=== PATIENT | female | born 1950 | race American Indian/Alaskan Native ===

== ENCOUNTER 2019-04-29 13:55 | Inpatient (IN) | payer OTHER ==
--- NOTE | 2019-04-29 14:00 | Emergency Department Report ---
Blank Doc - Documentation Documentation: this is a 68-year-old female that presents with AMS with some facial drooping. This initial assessment/diagnostic orders/clinical plan/treatment(s) is/are subject to change based on patient's health status, clinical progression and re- assessment by fellow clinical providers in the ED. Further treatment and workup at subsequent clinical providers discretion. Patient/guardians urged not to elope from the ED as their condition may be serious if not clinically assessed and managed. Initial orders include: 1- Patient sent to [facility] for further evaluation and treatment 2- code stroke imitated
--- NOTE | 2019-04-29 14:22 | Emergency Department Report ---
ED Neuro Deficit HPI - General Chief Complaint: Neuro Symptoms/Deficit Stated Complaint: POSS STROKE/PAIN Time Seen by Provider: 04/29/19 13:59 Source: family Mode of arrival: Ambulatory Limitations: No Limitations - History of Present Illness Initial Comments: [facility] Tele[facility]rology [facility] Date of Service: 04/29/2019 14:03:55 Impression: Left Hemispheric MCA Distribution Mechanism of Stroke: Possible Thromboembolic Possible Cardioembolic Small Vessel Disease Metrics: Last Known Well: 04/27/2019 00:00:00 [employer] Notification Time: 04/29/2019 14:03:55 Arrival Time: 04/29/2019 13:55:00 Stamp Time: 04/29/2019 14:03:55 Time First Login Attempt: 04/29/2019 14:07:40 Video Start Time: 04/29/2019 14:07:40 Symptoms: altered mental status and facial droop NIHSS Start Assessment Time: 04/29/2019 14:13:25 Patient is not a candidate for tPA. Patient was not deemed candidate for tPA thrombolytics because of Last Well Known above 4.5 hours. Video End Time: 04/29/2019 14:19:54 CT head was not reviewed. Advanced imaging was not obtained as the presentation was not suggestive of Large Vessel Occlusive Disease. ER physician notified of the decision on thrombolytics management. Comments: Hypodensity in the left deep white matter concerning for subacute stroke. Our recommendations are outlined below. Recommendations: Initiate Aspirin 81 MG Daily Recommended Scan: MRI Head Without Contrast MRA Head and Neck Without Contrast When Available - Stroke Protocol Echocardiogram - Transthoracic Echocardiogram Lipid Panel to Be Obtained, if Not Done in the Last Three Months Therapies: Physical Therapy, Occupational Therapy, Speech Therapy Assessment When Applicable Dysphaghia Screen: Swallow Evaluation, Bedside DVT prophylaxis: SCDs, Pneumatic Compression Disposition: Follow up with Teleneurology Follow up Sign Out: Discussed with Emergency Department Provider History of Present Illness: Patient is a 68 years old Female. Patient was brought by private transportation with symptoms of altered mental status and facial droop 68 yo F with history of htn and hl who is presenting iwth confusion. Patient's family's states that 2 days ago she started having trouble getting her words out. She now seems confused. Deny any recent illnesses. CT head was not reviewed. Examination: 1A: Level of Consciousness - Alert; keenly responsive + 0 1B: Ask Month and Age - Aphasic + 2 1C: Blink Eyes & Squeeze Hands - Performs Both Tasks + 0 2: Test Horizontal Extraocular Movements - Normal + 0 3: Test Visual Dowell - No Visual Loss + 0 4: Test Facial Palsy (Use Grimace if Obtunded) - Minor paralysis (flat nasolabial fold, smile asymetry) + 1 5A: Test Left Arm Motor Drift - No Drift for 10 Seconds + 0 5B: Test Right Arm Motor Drift - No Drift for 10 Seconds + 0 6A: Test Left Leg Motor Drift - No Drift for 5 Seconds + 0 6B: Test Right Leg Motor Drift - No Drift for 5 Seconds + 0 7: Test Limb Ataxia (FNF/Heel-Martinez) - No Ataxia + 0 8: Test Sensation - Normal; No sensory loss + 0 9: Test Language/Aphasia - Mild-Moderate Aphasia: Some Obvious Changes, Without Significant Limitation + 1 10: Test Dysarthria - Normal + 0 11: Test Extinction/Inattention - No abnormality + 0 NIHSS Score: 4 Patient was informed the Neurology Consult would happen via TeleHealth consult by way of interactive audio and video telecommunications and consented to receiving care in this manner. Due to the immediate potential for life-threatening deterioration due to underlying acute neurologic illness, I spent 35 minutes providing critical care. This time includes time for face to face visit via telemedicine, review of medical records, imaging studies and discussion of findings with providers, the patient and/or family. Dr Tootie Torres [facility] - Related Data Allergies/Adverse Reactions: Allergies Allergy/AdvReac Type Severity Reaction Status Date / Time No Known Allergies Allergy Unverified 04/29/19 13:57 ED Review of Systems ROS: Stated complaint: POSS STROKE/PAIN Other details as noted in HPI ED Past Medical Hx - Past Medical History Previous Medical History?: Yes Hx Heart Attack/AMI: Yes Additional medical history: GALL STONES - Social History Smoking Status: Never Smoker Substance Use Type: None ED Neuro Physical Exam - General Limitations: No Limitations Suspected Stroke: Yes - NIHSS Assessment Interval: Baseline 1a. Level of Consciousness: alert/keenly responsive 1b. LOC Questions: answers no questions correctly 1c. LOC Commands: performs tasks correctly 2. Best Gaze: normal 3. Visual: no visual loss 4. Facial Palsy: minor paralysis 5b. Motor Arm Right: no drift 5a. Motor Arm Left: no drift 6a. Motor Leg Left: no drift 6b. Motor Leg Right: no drift 7. Limb Ataxia: absent 8. Sensory: normal 9. Best Language: mild/moderate aphasia 10. Dysarthria: normal 11. Extinction/Inattention: no abnormality Total Score: 4 Stroke Severity: Minor Stroke ED Course Vital Signs 04/29/19 14:03 Temperature 98.4 F Pulse Rate 55 L Respiratory 18 Rate Blood Pressure 138/90 O2 Sat by Pulse 98 Oximetry - Lab Data Lab Results 04/29/19 Range/Units 14:08 POC Glucose 200 H (70-105) Critical care attestation.: If time is entered above; I have spent that time in minutes in the direct care of this critically ill patient, excluding procedure time. ED Disposition Clinical Impression: Stroke Disposition: -09 OP ADMIT IP TO THIS HOSP Is pt being admited?: Yes Condition: Stable
[2019-04-29 14:37] LABS: Creatine Kinase MB 2.1 ng/mL (0.0-4.0)
[2019-04-29 14:38] LABS: Alanine Aminotransferase 19 units/L (7-56); Albumin 4.1 g/dL (3.9-5); BUN/Creatinine Ratio 10; Blood Urea Nitrogen 12 mg/dL (7-17); Calcium 9.7 mg/dL (8.4-10.2); Hemolysis Index 11
--- NOTE | 2019-04-29 14:38 | Cat Scan Report ---
CT HEAD WITHOUT CONTRAST INDICATION / CLINICAL INFORMATION: Code stroke, aphasia, right-sided weakness. TECHNIQUE: Axial imaging performed from the skull apex through the skull base without the use of cont rast. Sagittal and coronal reformatted images. All CT scans at this location are performed using CT dose reduction for ALARA by means of automated exposure control. COMPARISON: None available. FINDINGS: CEREBRAL PARENCHYMA: Hyperdense left MCA is identified on image 13, series 2 consistent with thrombos is. There is a relatively small area of diminished attenuation in the posterior left basal ganglia me asuring up to 1 cm in greatest dimension. This may represent early ischemic changes. The remainder of the brain parenchyma demonstrates normal attenuation. The jaramillo-white interface is well-defined. No l arge chronic infarct. HEMORRHAGE: None. EXTRA-AXIAL SPACES: Normal in size and morphology for the patient's age. VENTRICULAR SYSTEM: Normal in size and morphology for the patient's age. MIDLINE SHIFT OR HERNIATION: None. CEREBELLUM / BRAINSTEM: No significant abnormality. CALVARIUM: No significant abnormality. ORBITS: Normal as visualized. PARANASAL SINUSES / MASTOID AIR CELLS: Normal as visualized. SOFT TISSUES of HEAD: No significant abnormality. ADDITIONAL FINDINGS: None. IMPRESSION: Hyperdense left MCA consistent with thrombosis as described. Probable early ischemic change in the le ft posterior basal ganglia region versus chronic lacunar infarct. There is no evidence for hemorrhage or mass effect. These findings were discussed with Dr. Camacho in the emergency department at 1429 hours EST. Signer Name: Chris Kern Jr, MD Signed: 04/29/2019 2:33 PM Workstation Name: [id number]
[2019-04-29 14:46] LABS: INR 1.26 (0.87-1.13)
[2019-04-29 14:47] LABS: Partial Thromboplastin Time 28.1 Sec. (24.2-36.6); Thrombin Time 16.5 Sec. (15.1-19.6)
[2019-04-29 15:04] LABS: Hemoglobin 14.1 gm/dl (10.1-14.3); Mean Corpuscular HGB Conc 31 % (30-34); Mean Corpuscular Volume 85 fl (79-97)
[2019-04-29 15:05] LABS: Basophils % (Auto) 0.5 % (0.0-1.8); Eosinophils # (Auto) 0.1 K/mm3 (0.0-0.4); Eosinophils % (Auto) 0.8 % (0.0-4.3); Lymphocytes # (Auto) 3.3 K/mm3 (1.2-5.4); Lymphocytes % (Auto) 43.4 % (13.4-35.0); Monocytes # (Auto) 0.8 K/mm3 (0.0-0.8); Monocytes % (Auto) 10.5 % (0.0-7.3); Platelet Count 267 K/mm3 (140-440); Red Cell Distribution Width 14.4 % (13.2-15.2)
--- NOTE | 2019-04-29 15:07 | Emergency Department Report ---
ED Neuro Deficit HPI - General Chief Complaint: Neuro Symptoms/Deficit Stated Complaint: POSS STROKE/PAIN Time Seen by Provider: 04/29/19 13:59 Source: family Mode of arrival: Ambulatory Limitations: No Limitations - History of Present Illness Initial Comments: 68-year-old female presents to ED for possible stroke. Family states over the last 2 days patient has been having trouble getting her words and seems confused. Family brought patient to ER because symptoms are not improving. -: days(s) (2) Location: speech Presenting Symptoms: Present: Unable to Speak Clearly History of same: No Place: home Severity: severe Improves With: none Worsens With: none Treatments Prior to Arrival: none - Related Data Home Medications: Home Medications Medication Instructions Recorded Confirmed Last Taken No Known Home Medications [No 04/29/19 04/29/19 Unknown Reported Home Medications] Allergies/Adverse Reactions: Allergies Allergy/AdvReac Type Severity Reaction Status Date / Time No Known Allergies Allergy Unverified 04/29/19 13:57 ED Review of Systems ROS: Stated complaint: POSS STROKE/PAIN Other details as noted in HPI Comment: All other systems reviewed and negative Neurological: confusion ED Past Medical Hx - Past Medical History Previous Medical History?: Yes Hx Heart Attack/AMI: Yes Additional medical history: GALL STONES - Social History Smoking Status: Never Smoker Substance Use Type: None - Medications Home Medications: Home Medications Medication Instructions Recorded Confirmed Last Taken Type No Known Home Medications [No 04/29/19 04/29/19 Unknown History Reported Home Medications] ED Neuro Physical Exam - General Limitations: No Limitations General appearance: alert, in no apparent distress Suspected Stroke: Yes - Head Head exam: Present: atraumatic, normocephalic - Eye Eye exam: Present: normal appearance, PERRL, EOMI - ENT ENT exam: Present: mucous membranes moist - Neck Neck exam: Present: normal inspection - Respiratory Respiratory exam: Present: normal lung sounds bilaterally. Absent: respiratory distress - Cardiovascular Cardiovascular Exam: Present: normal rhythm, bradycardia - GI/Abdominal GI/Abdominal exam: Present: soft. Absent: distended, tenderness - Extremities Exam Extremities exam: Present: normal inspection - NIHSS Assessment Interval: Baseline 1a. Level of Consciousness: alert/keenly responsive 1b. LOC Questions: aphasic 1c. LOC Commands: performs tasks correctly 2. Best Gaze: normal 3. Visual: no visual loss 4. Facial Palsy: minor paralysis 5b. Motor Arm Right: no drift 5a. Motor Arm Left: no drift 6a. Motor Leg Left: no drift 6b. Motor Leg Right: no drift 7. Limb Ataxia: absent 8. Sensory: normal 9. Best Language: mild/moderate aphasia 10. Dysarthria: normal 11. Extinction/Inattention: no abnormality Total Score: 4 Stroke Severity: Minor Stroke - Psychiatric Psychiatric exam: Present: normal affect, normal mood - Skin Skin exam: Present: warm, dry, intact, normal color. Absent: rash ED Course Vital Signs 04/29/19 04/29/19 04/29/19 14:03 14:46 16:01 Temperature 98.4 F Pulse Rate 55 L 76 76 Respiratory 18 25 H 28 H Rate Blood Pressure 138/90 137/84 120/73 O2 Sat by Pulse 98 99 100 Oximetry 04/29/19 17:01 Temperature Pulse Rate 64 Respiratory 19 Rate Blood Pressure 146/75 O2 Sat by Pulse 100 Oximetry - Reevaluation(s) Reevaluation #1: 04/29/19 15:21 EKG shows Afib. Granddaughter is unsure if pt has been previously diagnosed with Afib. States is not currently taking any medications b/c she is noncompliant. - Lab Data Result diagrams: 04/29/19 14:11 04/29/19 14:11 Lab Results 04/29/19 04/29/19 04/29/19 Range/Units 14:08 14:11 14:11 WBC 7.6 (4.5-11.0) K/mm3 RBC 5.30 H (3.65-5.03) M/mm3 Hgb 14.1 (10.1-14.3) gm/dl Hct 45.0 H (30.3-42.9) % MCV 85 (79-97) fl MCH 27 L (28-32) pg MCHC 31 (30-34) % RDW 14.4 (13.2-15.2) % Plt Count 267 (140-440) K/mm3 Lymph % (Auto) 43.4 H (13.4-35.0) % Starr % (Auto) 10.5 H (0.0-7.3) % Eos % (Auto) 0.8 (0.0-4.3) % Baso % (Auto) 0.5 (0.0-1.8) % Lymph # 3.3 (1.2-5.4) K/mm3 Starr # 0.8 (0.0-0.8) K/mm3 Eos # 0.1 (0.0-0.4) K/mm3 Baso # 0.0 (0.0-0.1) K/mm3 Seg Neutrophils % 44.8 (40.0-70.0) % Seg Neutrophils # 3.4 (1.8-7.7) K/mm3 PT 15.5 H (12.2-14.9) Sec. INR 1.26 H (0.87-1.13) APTT 28.1 (24.2-36.6) Sec. Thrombin Time 16.5 (15.1-19.6) Sec. Sodium (137-145) mmol/L Potassium (3.6-5.0) mmol/L Chloride (98-107) mmol/L Carbon Dioxide (22-30) mmol/L Anion Gap mmol/L BUN (7-17) mg/dL Creatinine (0.7-1.2) mg/dL Estimated GFR ml/min BUN/Creatinine Ratio % Glucose (65-100) mg/dL POC Glucose 200 H (70-105) Calcium (8.4-10.2) mg/dL Total Bilirubin (0.1-1.2) mg/dL AST (5-40) units/L ALT (7-56) units/L Alkaline Phosphatase (35-129) units/L Total Creatine Kinase (30-135) units/L CK-MB (CK-2) (0.0-4.0) ng/mL CK-MB (CK-2) Rel Index (0-4) Troponin T (0.00-0.029) ng/mL Total Protein (6.3-8.2) g/dL Albumin (3.9-5) g/dL Albumin/Globulin Ratio % 04/29/ Range/Units 14:11 WBC (4.5-11.0) K/mm3 RBC (3.65-5.03) M/mm3 Hgb (10.1-14.3) gm/dl Hct (30.3-42.9) % MCV (79-97) fl MCH (28-32) pg MCHC (30-34) % RDW (13.2-15.2) % Plt Count (140-440) K/mm3 Lymph % (Auto) (13.4-35.0) % Starr % (Auto) (0.0-7.3) % Eos % (Auto) (0.0-4.3) % Baso % (Auto) (0.0-1.8) % Lymph # (1.2-5.4) K/mm3 Starr # (0.0-0.8) K/mm3 Eos # (0.0-0.4) K/mm3 Baso # (0.0-0.1) K/mm3 Seg Neutrophils % (40.0-70.0) % Seg Neutrophils # (1.8-7.7) K/mm3 PT (12.2-14.9) Sec. INR (0.87-1.13) APTT (24.2-36.6) Sec. Thrombin Time (15.1-19.6) Sec. Sodium 135 L (137-145) mmol/L Potassium 3.6 (3.6-5.0) mmol/L Chloride 98.5 (98-107) mmol/L Carbon Dioxide 22 (22-30) mmol/L Anion Gap 18 mmol/L BUN 12 (7-17) mg/dL Creatinine 1.2 (0.7-1.2) mg/dL Estimated GFR 45 ml/min BUN/Creatinine Ratio 10 % Glucose 203 H (65-100) mg/dL POC Glucose (70-105) Calcium 9.7 (8.4-10.2) mg/dL Total Bilirubin 0.40 (0.1-1.2) mg/dL AST 19 (5-40) units/L ALT 19 (7-56) units/L Alkaline Phosphatase 66 (35-129) units/L Total Creatine Kinase 84 (30-135) units/L CK-MB (CK-2) 2.1 (0.0-4.0) ng/mL CK-MB (CK-2) Rel Index 2.5 (0-4) Troponin T < 0.010 (0.00-0.029) ng/mL Total Protein 8.4 H (6.3-8.2) g/dL Albumin 4.1 (3.9-5) g/dL Albumin/Globulin Ratio 1.0 % - EKG Data -: EKG Interpreted by Me EKG shows normal: QRS complexes, ST-T waves Rate: normal Interpretation: other (atrial fibrillation) - Radiology Data Radiology results: report reviewed, image reviewed - Medical Decision Making 68-year-old female with some aphasia on exam. Last known normal was [address] shows ischemic changes, and hyperdense left MCA. Patient seen and evaluated by a neurologist. Patient is not eligible for TPA or interventional procedure because she is outside of the treatment window. Patient states that he admitted to the hospitalist, Dr Howell, for further workup. - Differential Diagnosis CVA - Thrombolytic Inclusion/Exclusion Thrombolytic Exclusion Criteria: Symptom Onset > 3 Hours Critical care attestation.: If time is entered above; I have spent that time in minutes in the direct care of this critically ill patient, excluding procedure time. ED Disposition Clinical Impression: CVA (cerebral vascular accident) Qualifiers: Precerebral and cerebral artery: middle cerebral artery Laterality of affected vessel: left Disposition: DC-09 OP ADMIT IP TO THIS HOSP Is pt being admited?: Yes Condition: Stable Time of Disposition: 15:23
[2019-04-29] MEDS ORDERED: PROVENTIL IH PRN (15:47)
[2019-04-29] MEDS ORDERED: ZOFRAN IV PRN (15:47)
[2019-04-29] MEDS ORDERED: REGLAN PO PRN (15:47)
[2019-04-29] MEDS ORDERED: PHENERGAN PR PRN (15:47)
[2019-04-29] MEDS ORDERED: TYLENOL PO PRN (15:47)
[2019-04-29] MEDS ORDERED: DULCOLAX PR PRN (15:47)
[2019-04-29] MEDS ORDERED: MILK OF MAGNESIA PO PRN (15:47)
--- NOTE | 2019-04-29 15:47 | History and Physical Report ---
History of Present Illness Chief complaint: She is confused, and cant talk History of present illness: 68 YO Female with VA presents to ED for evaluation. Pt has confusion and dysarthria and is unable to provide detailed history. Pt history taken from family members who are at bedside during exam and interview. per family, the patient has experienced confusion and slurred speech, and difficulty swallowing over the past 2 days with persistent symptoms over the same time frame. Pt transported to [facility] via private vehicle. Pt found to have neurologic deficit consistent with CVA as well as Encephalopathy, and Hyponatremia. A code stroke was called and teleneurology consulted. Pt is outside therapeutic window for TPA. Pt initiated on CVA protocol and admitted to telemetry. Neurology consulted in ED. No reports of fever, chills, CP, Palpitations, NVD, Trauma, seizure, vertigo, vision loss, productive cough, or recent ill contacts. No further history obtainable. No prior admission for review. No medication listed for reconciliation at time of admission. Past History Past Medical History: acute VA Past Surgical History: No surgical history, Other (reviewed) Social history: single, lives with family. denies: smoking, alcohol abuse, prescription drug abuse Family history: CAD Medications and Allergies Allergies Allergy/AdvReac Type Severity Reaction Status Date / Time No Known Allergies Allergy Unverified 04/29/19 13:57 Home Medications Medication Instructions Recorded Confirmed Last Taken Type No Known Home Medications [No 04/29/19 04/29/19 Unknown History Reported Home Medications] Review of Systems ROS unobtainable: due to mental status Exam - Constitutional Vitals: Temp Pulse Resp BP Pulse Ox 98.4 F 55 L 18 138/90 98 04/29/19 14:03 04/29/19 14:03 04/29/19 14:03 04/29/19 14:03 04/29/19 14:03 General appearance: Present: mild distress - EENT Eyes: Present: PERRL ENT: clear oral mucosa, hearing decreased - Neck Neck: Present: supple, normal ROM - Respiratory Respiratory effort: normal Respiratory: bilateral: CTA - Cardiovascular Heart Sounds: Present: S1 & S2. Absent: rub, click - Extremities Extremities: pulses symmetrical, No edema Peripheral Pulses: within normal limits - Abdominal General gastrointestinal: Present: soft, non-tender, non-distended, normal bowel sounds Female genitourinary: Present: normal - Integumentary Integumentary: Present: clear, warm, dry - Musculoskeletal Musculoskeletal: generalized weakness - Psychiatric Psychiatric: no appropriate mood/affect, no intact judgment & insight, no memory intact - Neurologic Neurologic: no CNII-XII intact, focal deficits, moves all extremities, no gait normal Results - Labs CBC & Chem 7: 04/29/19 14:11 04/29/19 14:11 Labs: Abnormal lab results 04/29/19 04/29/19 04/29/19 Range/Units 14:08 14:11 14:11 RBC 5.30 H (3.65-5.03) M/mm3 Hct 45.0 H (30.3-42.9) % MCH 27 L (28-32) pg Lymph % (Auto) 43.4 H (13.4-35.0) % Buchanan % (Auto) 10.5 H (0.0-7.3) % PT 15.5 H (12.2-14.9) Sec. INR 1.26 H (0.87-1.13) Sodium (137-145) mmol/L Glucose (65-100) mg/dL POC Glucose 200 H (70-105) Total Protein (6.3-8.2) g/dL 04/29/19 Range/Units 14:11 RBC (3.65-5.03) M/mm3 Hct (30.3-42.9) % MCH (28-32) pg Lymph % (Auto) (13.4-35.0) % Buchanan % (Auto) (0.0-7.3) % PT (12.2-14.9) Sec. INR (0.87-1.13) Sodium 135 L (137-145) mmol/L Glucose 203 H (65-100) mg/dL POC Glucose (70-105) Total Protein 8.4 H (6.3-8.2) g/dL Assessment and Plan - Patient Problems (1) CVA (cerebral vascular accident) Current Visit: Yes Status: Acute Qualifiers: Precerebral and cerebral artery: middle cerebral artery Laterality of affected vessel: left Plan to address problem: Stroke protocol: Admit to telemetry, CT head, MRI Brain, MRA Brain, Echo, Carotic doppler, Neuro check, seizure precautions, lipid panel, statin therapy, antiplatelet therapy, Neurology consulted. (2) Encephalopathy Current Visit: Yes Status: Acute Plan to address problem: CT Head, neuro checks, aspiration precautions, thyroid panel, supportive care (3) Hyponatremia syndrome Current Visit: Yes Status: Acute Plan to address problem: IVF resuscitation therapy, repeat bmp, (4) Diabetes Current Visit: Yes Status: Acute Plan to address problem: ADA diet, insulin, accu chec, Hgb A1c (5) DVT prophylaxis Current Visit: Yes Status: Acute Plan to address problem: SCD to BLE while in bed, prophylactic lovenox
[2019-04-29 16:59] LABS: Bacteria,Urine 4+ /HPF (Negative); Bilirubin,Urine NEG (Negative); Blood,Urine SM (Negative); Color,Urine Yellow (Yellow); Mucus,Urine FEW /HPF; Protein,Urine <15 mg/dL mg/dL (Negative); Urobilinogen,Urine < 2.0 mg/dL (<2.0)
[2019-04-29] MEDS ORDERED: D50W (25GM) Syringe IV PRN (17:08)
[2019-04-29 17:33] LABS: Amphetamine Screen,Urine PRESUMPTIVE NEGATIVE; Benzodiazepines Screen,Urine PRESUMPTIVE NEGATIVE; Cannabinoid Screen,Urine PRESUMPTIVE NEGATIVE; Cocaine Screen,Urine PRESUMPTIVE NEGATIVE; Methadone Screen,Urine PRESUMPTIVE NEGATIVE; Opiate Screen,Urine PRESUMPTIVE NEGATIVE
[2019-04-29 20:18] LABS: Free T4 (Free Thyroxine) 1.28 ng/dL (0.76-1.46)
[2019-04-29] MEDS: SODIUM CHLORIDE FLUSH SYRINGE 10 ML IV PRN (21:20)
[2019-04-29] MEDS: HumaLOG SUB-Q SCH (21:32)
--- NOTE | 2019-04-30 09:51 | Magnetic Resonance Report ---
MRI BRAIN WITHOUT CONTRAST INDICATION / CLINICAL INFORMATION: stroke. TECHNIQUE: Multiplanar, multisequence MR images of the brain were obtained. COMPARISON: None available. FINDINGS: BRAIN / INTRACRANIAL CONTENTS: There are scattered areas of acute infarction within the left MCA dist ribution including a 2 cm focus along the posterior left gangliocapsular region. Foci are also seen a long the left insula as well as the frontal and parietal subcortical regions. There is otherwise mild cerebral white matter disease on the FLAIR sequences most consistent with chronic microvascular ryan opathy. The ventricular system is appropriate in size and configuration. CRANIOCERVICAL JUNCTION: No significant abnormality. VASCULAR FLOW-VOIDS: On the earlier CTA, there was note of increased attenuation within and MCA branc h at the trifurcation which corresponds with heterogeneous signal on the current T2-weighted imaging. The vertebral basilar system and distal ICAs demonstrate appropriate signal voids. ORBITS: No significant abnormality of visualized orbits. SINUSES / MASTOIDS: There is a defect along the medial right orbital wall which may be developmental or related to previous trauma. Otherwise, the paranasal sinuses are clear. ADDITIONAL FINDINGS: None. IMPRESSION: 1. There are patchy areas of acute infarction within the left MCA distribution as detailed above. Signer Name: Kam Black MD Signed: 04/30/2019 9:46 AM Workstation Name: [id number]
[2019-04-30] MEDS ORDERED: LOVENOX SUB-Q SCH (10:00)
--- NOTE | 2019-04-30 10:35 | Magnetic Resonance Report ---
MRA head without contrast Clinical history: Slurred speech, left-sided weakness, cerebrovascular accident. FINDINGS: There is decrease of signal projected within the insular branch of the left MCA compatible with decreased flow. Scattered areas of acute infarction were seen within the left MCA distribution o n the covering MRI. Furthermore, increased attenuation was seen within this region on the previous CT of 04/29/2019 indicative of thrombus. There is mild to moderate narrowing of the distal most right tubal artery which may be exacerbated by the degree of motion. Otherwise, the intracranial vessels demonstrate appropriate caliber without si gnificant focal stenosis by NASCET criteria. There is no definitive MRA evidence of intracranial aneu rysm. IMPRESSION: There is decreased signal within the insular branch of the left MCA compatible with reduced flow as d etailed above. There is mild to moderate narrowing of the distalmost right vertebral Signer Name: Kam Black MD Signed: 04/30/2019 10:31 AM Workstation Name: [id number]
--- NOTE | 2019-04-30 11:42 | Progress Note ---
Assessment and Plan Assessment and plan: History of present illness: 68 YO Female with IN presents to ED for evaluation. Pt has confusion and dys arthria and is unable to provide detailed history. Pt history taken from family members who are at bedside during exam and interview. per family, the patient has experienced confusion and slurred speech, and difficulty swallowing over the past 2 days with persistent symptoms over the same time frame. Pt transported to [facility] via private vehicle. Pt found to have neurologic deficit consistent with CVA as well as Encephalopathy, and Hyponatremia. A code stroke was called and teleneurology consulted. Pt is outside therapeutic window for TPA. Pt initiated on CVA protocol and admitted to telemetry. Neurology consulted in ED. No reports of fever, chills, CP, Palpitations, NVD, Trauma, seizure, vertigo, vision loss, productive cough, or recent ill contacts. No further history obtainable. No prior admission for review. No medication listed for reconciliation at time of admission. Past History Past Medical History: acute IN CVA (cerebral vascular accident) neurology input appreciated, Liz trevino noticed on telemetry and EKG. Patient is a lesion cardiology consulted, meds optimized secondary prevention Encephalopathy resolved Hyponatremia syndrome IVF resuscitation therapy, resolved, Diabetes ssi DVT prophylaxis SCD to BLE while in bed, prophylactic lovenox History Interval history: still c/o expressive aphasia Review of systems Constitutional: No fevers, no malaise, no joint pains CVS: No chest pain, no orthopnea, no dyspnea on exertion, no pedal edema GI: No abdominal pain, no diarrhea, no vomiting, no constipation Respiratory: no wheezing, no coughing Hospitalist Physical - Physical exam Narrative exam: General.: Appears well, no distress, nontoxic HEENT: Moist mucous membranes, extraocular muscles intact, no lymphadenopathy Neck: supple Cardiac: S1-S2 heard Lungs: clear to auscultation bilaterally Abdomen: soft , nontender, nondistended, bowel sounds positive Extremities: no edema clubbing or cyanosis Skin: no rash or lesions Neurologic: Expressive aphasia Psych: calm, and cooperative - Constitutional Vitals: Temp Pulse Resp BP Pulse Ox 98.5 F 39 L 20 134/66 96 04/30/19 07:55 04/30/19 07:55 04/30/19 07:55 04/30/19 07:55 04/30/19 07:55 General appearance: Present: mild distress Results - Labs CBC & Chem 7: 04/29/19 14:11 04/29/19 14:11 Labs: Laboratory Last Values WBC 7.6 K/mm3 (4.5-11.0) 04/29/19 14:11 RBC 5.30 M/mm3 (3.65-5.03) H 04/29/19 14:11 Hgb 14.1 gm/dl (10.1-14.3) 04/29/19 14:11 Hct 45.0 % (30.3-42.9) H 04/29/19 14:11 MCV 85 fl (79-97) 04/29/19 14:11 MCH 27 pg (28-32) L 04/29/19 14:11 MCHC 31 % (30-34) 04/29/19 14:11 RDW 14.4 % (13.2-15.2) 04/29/19 14:11 Plt Count 267 K/mm3 (140-440) 04/29/19 14:11 Lymph % (Auto) 43.4 % (13.4-35.0) H 04/29/19 14:11 [place] % (Auto) 10.5 % (0.0-7.3) H 04/29/19 14:11 Eos % (Auto) 0.8 % (0.0-4.3) 04/29/19 14:11 Baso % (Auto) 0.5 % (0.0-1.8) 04/29/19 14:11 Lymph # 3.3 K/mm3 (1.2-5.4) 04/29/19 14:11 [place] # 0.8 K/mm3 (0.0-0.8) 04/29/19 14:11 Eos # 0.1 K/mm3 (0.0-0.4) 04/29/19 14:11 Baso # 0.0 K/mm3 (0.0-0.1) 04/29/19 14:11 Seg Neutrophils % 44.8 % (40.0-70.0) 04/29/19 14:11 Seg Neutrophils # 3.4 K/mm3 (1.8-7.7) 04/29/19 14:11 PT 15.5 Sec. (12.2-14.9) H 04/29/19 14:11 INR 1.26 (0.87-1.13) H 04/29/19 14:11 APTT 28.1 Sec. (24.2-36.6) 04/29/19 14:11 16.5 Sec. (15.1-19.6) 04/29/19 14:11 Sodium 135 mmol/L (137-145) L 04/29/19 14:11 Potassium 3.6 mmol/L (3.6-5.0) 04/29/19 14:11 Chloride 98.5 mmol/L (98-107) 04/29/19 14:11 Carbon Dioxide 22 mmol/L (22-30) 04/29/19 14:11 18 mmol/L 04/29/19 14:11 BUN 12 mg/dL (7-17) 04/29/19 14:11 1.2 mg/dL (0.7-1.2) 04/29/19 14:11 Estimated GFR 45 ml/min 04/29/19 14:11 10 % 04/29/19 14:11 Glucose 203 mg/dL (65-100) H 04/29/19 14:11 POC Glucose 84 (70-105) 04/30/19 07:20 5.8 % (4-6) 04/29/19 19:04 Calcium 9.7 mg/dL (8.4-10.2) 04/29/19 14:11 0.40 mg/dL (0.1-1.2) 04/29/19 14:11 AST 19 units/L (5-40) 04/29/19 14:11 ALT 19 units/L (7-56) 04/29/19 14:11 66 units/L (35-129) 04/29/19 14:11 84 units/L (30-135) 04/29/19 14:11 CK-MB (CK-2) 2.1 ng/mL (0.0-4.0) 04/29/19 14:11 CK-MB (CK-2) Rel Index 2.5 (0-4) 04/29/19 14:11 < 0.010 ng/mL (0.00-0.029) 04/29/19 14:11 8.4 g/dL (6.3-8.2) H 04/29/19 14:11 4.1 g/dL (3.9-5) 04/29/19 14:11 1.0 % 04/29/19 14:11 TSH 1.380 mlU/mL (0.270-4.200) 04/29/19 19:04 Free T4 1.28 ng/dL (0.76-1.46) 04/29/19 19:04 Yellow (Yellow) 04/29/19 16:33 Clear (Clear) 04/29/19 16:33 6.0 (5.0-7.0) 04/29/19 16:33 Ur Specific [place] 1.008 (1.003-1.030) 04/29/19 16:33 <15 mg/dl mg/dL (Negative) 04/29/19 16:33 Neg mg/dL (Negative) 04/29/19 16:33 Neg mg/dL (Negative) 04/29/19 16:33 Sm (Negative) 04/29/19 16:33 Neg (Negative) 04/29/19 16:33 Ur Reducing Substances Not Reportable 04/29/19 16:33 Neg (Negative) 04/29/19 16:33 Not Reportable 04/29/19 16:33 < 2.0 mg/dL (<2.0) 04/29/19 16:33 Ur Leukocyte Esterase Mod (Negative) 04/29/19 16:33 16.0 /HPF (0.0-6.0) H 04/29/19 16:33 5.0 /HPF (0.0-6.0) 04/29/19 16:33 U Epithel Cells (Auto) 1.0 /HPF (0-13.0) 04/29/19 16:33 4+ /HPF (Negative) 04/29/19 16:33 Few /HPF 04/29/19 16:33 Presumptive negative 04/29/19 16:33 Presumptive negative 04/29/19 16:33 Ur Barbiturates Screen Presumptive negative 04/29/19 16:33 Ur Phencyclidine Scrn Presumptive negative 04/29/19 16:33 Ur Amphetamines Screen Presumptive negative 04/29/19 16:33 U Benzodiazepines Scrn Presumptive negative 04/29/19 16:33 Presumptive negative 04/29/19 16:33 U Marijuana (THC) Screen Presumptive negative 04/29/19 16:33 Disclamer 04/29/19 16:33 Active Medications - Current Medications Current Medications: Generic Name Dose Route Start Last Admin Trade Name Freq PRN Reason Stop Dose Admin Acetaminophen 650 mg 04/29/19 15:47 Tylenol PO Q4H PRN Pain, Mild (1-3) Albuterol 2.5 mg 04/29/19 15:47 Proventil IH Q3HRT PRN Shortness Of Breath Aspirin 325 mg 04/30/19 10:00 Aspirin PO QDAY [facility] Atorvastatin Calcium 40 mg 04/29/19 22:00 04/29/19 21:18 Lipitor PO 40 mg QHS [facility] Administration Bisacodyl 10 mg 04/29/19 15:47 Dulcolax DE QDAY PRN Constipation Dextrose 50 ml 04/29/19 17:08 D50w (25gm) Syringe IV PRN PRN Hypoglycemia Enoxaparin Sodium 40 mg 04/30/19 10:00 Lovenox SUB-Q QDAY@1000 [facility] Insulin Human Lispro 0 unit 04/29/19 22:00 04/29/19 21:32 Humalog SUB-Q Not Given [facility] Protocol Magnesium Hydroxide 30 ml 04/29/19 15:47 Milk Of Magnesia PO Q4H PRN Constipation Metoclopramide HCl 10 mg 04/29/19 15:47 Reglan PO Q6H PRN Nausea And Vomiting Ondansetron HCl 4 mg 04/29/19 15:47 Zofran IV Q8H PRN Nausea And Vomiting Promethazine HCl 25 mg 04/29/19 15:47 Phenergan DE Q6H PRN Nausea And Vomiting Sodium Chloride 10 ml 04/29/19 15:47 04/29/19 21:20 Sodium Chloride Flush Syringe 10 Ml IV 10 ml PRN PRN Administration LINE FLUSH
--- NOTE | 2019-04-30 12:30 | Vascular Lab Report ---
BILATERAL CAROTID DOPPLER ULTRASOUND INDICATION : Stroke, aphasia for 3 days, diabetes, hypertension TECHNIQUE: Grayscale and color Doppler imaging performed through the neck. COMPARISON: None FINDINGS: Right: There is mild noncalcified smooth plaque in the proximal ICA. Peak systolic velocity in the CCA is 62 cm/s with end-diastolic velocity of 19 cm/s. Peak systolic velocity in the proximal ICA is 65 cm/s with end-diastolic velocity of 32 cm/s. ICA to CCA ratio is less than 2. There is antegrade flow in the ECA and the vertebral artery. Left: There is no significant atherosclerotic disease. Peak systolic velocity in the CCA is 44 cm/s w ith end-diastolic velocity of 12 cm/s. Peak systolic velocity in the proximal ICA is 85 cm/s with end -diastolic velocity of 27 cm/s. ICA to CCA ratio is less than 2. There is antegrade flow in the ECA and the vertebral artery. IMPRESSION: No hemodynamically significant stenosis by NASCET criteria. There is less than 50% lumina l narrowing in both carotid systems. Signer Name: Chris Kern Jr, MD Signed: 04/30/2019 12:26 PM Workstation Name: [id number]
[2019-04-30] MEDS: LOVENOX SUB-Q SCH (13:41)
[2019-04-30] MEDS: ROCEPHIN/NS 1 GM/50 ML 1 GM/50 ML BAG IV SCH (13:41)
[2019-04-30] MEDS: HumaLOG SUB-Q SCH ×4 (13:41→21:18)
[2019-04-30] MEDS: ASPIRIN PO SCH (13:41)
--- NOTE | 2019-04-30 23:57 | Consultation ---
History of Present Illness Consult date: 04/30/19 Reason for Consult: Stroke Chief complaint: Stroke History of present illness: Patient is a 68 y/o woman w/ a h/o HTN and HLD, who p/w word-finding difficulty which began 3 days ago. The patient as admitted yesterday at [facility], and was seen by teleneurology, however was felt to be outside of the tPA window, and therefo re this was not administered. Patient continues to experience word-finding difficulty, and paraphasic errors. Past History Past Medical History: acute LA, hypertension, hyperlipidemia Past Surgical History: No surgical history, Other (reviewed) Social history: single, lives with family. denies: smoking, alcohol abuse, prescription drug abuse Family history: CAD Medications and Allergies Allergies Allergy/AdvReac Type Severity Reaction Status Date / Time No Known Allergies Allergy Unverified 04/29/19 13:57 Home Medications Medication Instructions Recorded Confirmed Last Taken Type No Known Home Medications [No 04/29/19 04/29/19 Unknown History Reported Home Medications] Active Meds: Active Medications Acetaminophen (Tylenol) 650 mg PO Q4H PRN PRN Reason: Pain, Mild (1-3) Albuterol (Proventil) 2.5 mg IH Q3HRT PRN PRN Reason: Shortness Of Breath Aspirin (Aspirin) 325 mg PO QDAY [facility] Last Admin: 04/30/19 13:41 Dose: 325 mg Documented by: Atorvastatin Calcium (Lipitor) 40 mg PO QHS [facility] Last Admin: 04/30/19 21:31 Dose: 40 mg Documented by: Bisacodyl (Dulcolax) 10 mg GA QDAY PRN PRN Reason: Constipation Dextrose (D50w (25gm) Syringe) 50 ml IV PRN PRN PRN Reason: Hypoglycemia Enoxaparin Sodium (Lovenox) 40 mg SUB-Q QDAY@1000 [facility] Last Admin: 04/30/19 13:41 Dose: 40 mg Documented by: Ceftriaxone Sodium (Rocephin/Ns 1 Gm/50 Ml) 1 gm in 50 mls @ 100 mls/hr IV Q24HR [facility]; Protocol Last Admin: 04/30/19 13:41 Dose: 100 mls/hr Documented by: Insulin Human Lispro (Humalog) 0 unit SUB-Q ACHS [facility]; Protocol Last Admin: 04/30/19 21:18 Dose: Not Given Documented by: Magnesium Hydroxide (Milk Of Magnesia) 30 ml PO Q4H PRN PRN Reason: Constipation Metoclopramide HCl (Reglan) 10 mg PO Q6H PRN PRN Reason: Nausea And Vomiting Ondansetron HCl (Zofran) 4 mg IV Q8H PRN PRN Reason: Nausea And Vomiting Promethazine HCl (Phenergan) 25 mg GA Q6H PRN PRN Reason: Nausea And Vomiting Sodium Chloride (Sodium Chloride Flush Syringe 10 Ml) 10 ml IV PRN PRN PRN Reason: LINE FLUSH Last Admin: 04/29/19 21:20 Dose: 10 ml Documented by: Review of Systems All systems: negative Neurological: aphasia, change in speech Physical Examination - Vital Signs Vital Signs: Vital Signs Temp Pulse Resp BP Pulse Ox 98.4 F 55 L 18 138/90 98 04/29/19 14:03 04/29/19 14:03 04/29/19 14:03 04/29/19 14:03 04/29/19 14:03 - Physical Exam Narrative exam: Gen: no distress, cooperative Neck: no JVD, masses, or bruits HEENT: atraumatic, sclera anicteric CV RRR Lung symmetric chest expansion Abd: soft, non-tender, non-distended Ext: no edema Neurological Examination: Mental status: Alert, oriented x 3, however has difficulty communicating due to aphasia and dysarthria Language: Dysfluent, comprehension, repetition and naming intact CN: VF full, pupils ERR, EOMi, V1-3 equal to light touch No droop, noted to have dysarthria Uvula are midline Tongue midline Motor system: Muscle tone and appearance are normal Strength: RUE: proximal: 5/5, distal: 5/5 LUE: proximal: 5/5, distal: 5/5 RLE: proximal: 5/5, distal: 5/5 LLE: proximal: 5/5, distal: 5/5 Reflexes: 2+ in biceps/brachioradialis/triceps/patellar/ankle Sensory: Grossly symmetric Coord: No tremor, FTN, HTS intact Gait: deferred - Level of Consciousness 1a. Level of Consciousness: alert/keenly responsive - LOC Questions 1b. LOC Questions: answers both correctly - LOC Command 1c. LOC Commands: performs tasks correctly - Best Gaze 2. Best Gaze: normal - Visual 3. Visual: no visual loss - Facial Palsy 4. Facial Palsy: normal symmetrical movement - Motor Arm 5a. Motor Arm Left: no drift 5b. Motor Arm Right: no drift - Motor Leg 6a. Motor Leg Left: no drift 6b. Motor Leg Right: no drift - Limb Ataxia 7. Limb Ataxia: absent - Sensory 8. Sensory: normal - Best Language 9. Best Language: mild/moderate aphasia - Dysarthria 10. Dysarthria: mild/moderate dysarthria - Extinction and Inattention 11. Extinction/Inattention: no abnormality - Scoring Total Score: 2 Stroke Severity: Minor Stroke Results - Laboratory Findings CBC and BMP: 04/29/19 14:11 04/29/19 14:11 Abnormal Lab Findings: Abnormal Labs 04/29/19 04/29/19 04/29/19 14:08 14:11 14:11 RBC 5.30 H Hct 45.0 H MCH 27 L Lymph % (Auto) 43.4 H [place] % (Auto) 10.5 H PT 15.5 H INR 1.26 H Sodium Glucose POC Glucose 200 H Total Protein Urine WBC (Auto) 04/29/19 04/29/19 04/30/19 14:11 16:33 12:06 RBC Hct MCH Lymph % (Auto) [place] % (Auto) PT INR Sodium 135 L Glucose 203 H POC Glucose 124 H Total Protein 8.4 H Urine WBC (Auto) 16.0 H 04/30/19 20:55 RBC Hct MCH Lymph % (Auto) [place] % (Auto) PT INR Sodium Glucose POC Glucose 148 H Total Protein Urine WBC (Auto) Assessment and Plan Patient is a 68 y/o woman w/ a h/o HTN and HLD, who p/w word-finding difficulty which began 3 days ago. According to the patient's clinical findings, she has had an acute ischemic stroke in the left MCA territory. Etiology of stroke is to be further investigated. Plan: #Acute ischemic stroke - MRI brain without contrast revleaed Lt. MCA territory infarct. - Echocardiogram ordered to assess cardiac function and rule out intracardiac thrombi or shunt - Labs to include CBC, CMP, lipid panel. - HbA1C 5.8 - UA showed possible UTI. Treat per primary team. - Check CTA head/neck for better visualization of cerebro-vasculature. - Telemetry revealed possible A-fib. Recommend cardiology consult for further evaluation. - If patient is felt to have a-fib by cardiology, would recommend starting anti-coagulation in 10-12 days from symptoms onset, as to decrease risk of h emorrhagic conversion of infarct. - Secondary prevention - start pt on Aspirin 81 mg daily - Start high-intensity statin with LDL goal <70 - Telemetry monitoring while in house. - Physical therapy and occupational therapy for evaluation of mobility - Speech therapy consultation for swallow evaluation. - DVT ppx - SCD for now. Consider lovenox. #Blood pressure - Recommend BP goal of normotension, as it has been >24 hours since symptom onset. -Will sign off, as I am not covering the weekend. Please consult neurologist that is covering tomorrow, as patient will require close neurologic monitoring. Yuriy Suarez MD Neurology
[2019-05-01 05:06] LABS: Chol/HDL Ratio 5.17 %
[2019-05-01] MEDS: HumaLOG SUB-Q SCH ×4 (08:29→21:46)
[2019-05-01] MEDS: ROCEPHIN/NS 1 GM/50 ML 1 GM/50 ML BAG IV SCH (10:27)
[2019-05-01] MEDS: LOVENOX SUB-Q SCH (10:28)
[2019-05-01] MEDS: ASPIRIN PO SCH (10:28)
--- NOTE | 2019-05-01 15:19 | Consultation ---
History of Present Illness Consult date: 05/01/19 Requesting physician: ULICES RODAS Consult reason: other (CVA) History of present illness: Ms. Rivera is a 68 y/o female admitted to [facility] with an acute ischemic left MCA stroke. She is previously unknown to our practice. There are no family members present and the patient can provide only minimal history d/t aphasia. Per the EMR, the patient experienced slurred speech and confusion over the past few days. The patient was able to verbalize that she has a history of SC, hypertension and diabetes. An MRI and MRA revealed an acute stroke in the left MCA territory. She did not receive tPA. An EKG revealed atrial fibrillation. Past History Past Medical History: acute SC, diabetes, hypertension, hyperlipidemia Past Surgical History: No surgical history, Other (reviewed) Social history: single, lives with family. denies: smoking, alcohol abuse, prescription drug abuse Family history: CAD Medications and Allergies Allergies Allergy/AdvReac Type Severity Reaction Status Date / Time No Known Allergies Allergy Unverified 04/29/19 13:57 Home Medications Medication Instructions Recorded Confirmed Last Taken Type No Known Home Medications [No 04/29/19 04/29/19 Unknown History Reported Home Medications] Active Meds: Active Medications Acetaminophen (Tylenol) 650 mg PO Q4H PRN PRN Reason: Pain, Mild (1-3) Albuterol (Proventil) 2.5 mg IH Q3HRT PRN PRN Reason: Shortness Of Breath Aspirin (Aspirin) 325 mg PO QDAY [facility] Last Admin: 05/01/19 10:28 Dose: 325 mg Documented by: Atorvastatin Calcium (Lipitor) 40 mg PO QHS [facility] Last Admin: 04/30/19 21:31 Dose: 40 mg Documented by: Bisacodyl (Dulcolax) 10 mg DC QDAY PRN PRN Reason: Constipation Dextrose (D50w (25gm) Syringe) 50 ml IV PRN PRN PRN Reason: Hypoglycemia Enoxaparin Sodium (Lovenox) 40 mg SUB-Q QDAY@1000 [facility] Last Admin: 05/01/19 10:28 Dose: 40 mg Documented by: Ceftriaxone Sodium (Rocephin/Ns 1 Gm/50 Ml) 1 gm in 50 mls @ 100 mls/hr IV Q24HR [facility]; Protocol Last Admin: 05/01/19 10:27 Dose: 100 mls/hr Documented by: Insulin Human Lispro (Humalog) 0 unit SUB-Q ACHS [facility]; Protocol Last Admin: 05/01/19 08:29 Dose: Not Given Documented by: Magnesium Hydroxide (Milk Of Magnesia) 30 ml PO Q4H PRN PRN Reason: Constipation Metoclopramide HCl (Reglan) 10 mg PO Q6H PRN PRN Reason: Nausea And Vomiting Ondansetron HCl (Zofran) 4 mg IV Q8H PRN PRN Reason: Nausea And Vomiting Promethazine HCl (Phenergan) 25 mg DC Q6H PRN PRN Reason: Nausea And Vomiting Sodium Chloride (Sodium Chloride Flush Syringe 10 Ml) 10 ml IV PRN PRN PRN Reason: LINE FLUSH Last Admin: 04/29/19 21:20 Dose: 10 ml Documented by: Review of Systems ROS unobtainable: due to mental status Neurological: change in speech Physical Examination Vital Signs Temp Pulse Resp BP Pulse Ox 98.4 F 55 L 18 138/90 98 04/29/19 14:03 04/29/19 14:03 04/29/19 14:03 04/29/19 14:03 04/29/19 14:03 General appearance: no acute distress HEENT: Positive: PERRL Neck: Positive: neck supple Cardiac: Positive: irregularly irregular Lungs: Positive: Normal Exam Neuro: Positive: Other (aphasia) Abdomen: Positive: Unremarkable Female genitourinary: deferred Skin: Positive: Clear Musculoskeletal: No Pain Extremities: Present: normal Results 04/29/19 14:11 04/29/19 14:11 Lipids 05/01/19 Range/Units 04:13 Triglycerides 62 (2-149) mg/dL Cholesterol 238 H (50-199) mg/dL HDL Cholesterol 46 (40-59) mg/dL Cholesterol/HDL Ratio 5.17 % - Imaging and Cardiology Echo: pending EKG: report reviewed (Atrial fibrillation with LVH) EKG interpretations - Telemetry EKG Rhythm: Sinus Bradycardia (with PACs and PVCs) Assessment and Plan Ms. Rivera is a 68 y/o female with a medical history significant for hypertension, SC and diabetes who presented to the [facility] ED with an acute ischemic left MCA stroke. She was noted to be in atrial fibrillation/flutter on admission, which has since converted to sinus bradycardia with PACs and PVC. Echocardiogram is pending. She will need anticoagulation, but will defer to neurology for the timing of anticoagulation. Continue Lipitor, aspirin and Lovenox for now. The patient has been seen in conjunction with Dr. Syed, who agrees with the assessment and plan. - Patient Problems (1) Atrial fibrillation and flutter Current Visit: Yes Status: Acute (2) CVA (cerebral vascular accident) Current Visit: Yes Status: Acute Qualifiers: Precerebral and cerebral artery: middle cerebral artery Laterality of affected vessel: left (3) Diabetes Current Visit: Yes Status: Chronic (4) H/O: hypertension Current Visit: Yes Status: Acute (5) Hyperlipidemia Current Visit: Yes Status: Chronic
[2019-05-02] MEDS: HumaLOG SUB-Q SCH ×4 (08:32→22:11)
[2019-05-02] MEDS: ASPIRIN PO SCH (09:34)
[2019-05-02] MEDS: ROCEPHIN/NS 1 GM/50 ML 1 GM/50 ML BAG IV SCH (09:35)
[2019-05-02] MEDS: LOVENOX SUB-Q SCH (09:35)
--- NOTE | 2019-05-02 11:02 | Progress Note ---
Assessment and Plan New-onset H fibrillation with slow ventricle response Cardiomyopathy moderate New CVA Hypertension Hyperlipidemia Recommend no AV remy blocking agents in view of bradycardia and also with history of pauses patient currently is asymptomatic advice the patient to walk and discussed with nurse to monitor heart rate with activity. In view of cardiomyopathy would do a Lexiscan nuclear stress test for ischemic burden. Start oral anticoagulation for atrial fibrillation as per neurology and add lose dose arb losartan 25mg . Unclear the duration of cardiomyopathy patient does state seeing a chaser tar in [place]. Subjective Date of service: 05/02/19 Principal diagnosis: afib Interval history: pt has no lightheadness or syncope Objective Vital Signs Temp Pulse Resp BP Pulse Ox 05/02/19 08:02 98.3 F 53 L 16 133/77 99 05/02/19 04:38 97.8 F 43 L 16 120/74 99 05/01/19 23:34 98.2 F 62 16 131/97 100 05/01/19 22:00 70 05/01/19 19:45 50 L 05/01/19 19:17 97.6 F 37 L 16 134/73 99 05/01/19 17:00 97.7 F 20 134/68 74 L 05/01/19 11:20 99.2 F 41 L 18 115/80 97 - Physical Examination HEENT: Positive: PERRL Neck: Positive: neck supple Cardiac: Positive: Irregularly Regular Lungs: Positive: clear to auscultation Neuro: Positive: Other (aphasia) Abdomen: Positive: Unremarkable Skin: Positive: Clear Musculoskeletal: No Pain Extremities: Present: normal - Imaging and Cardiology EKG: report reviewed (Atrial fibrillation with LVH) Echo: report reviewed (moderate LV dysfunction EF 35-40% severe left atrial enlargement negative bubble study mild right ventricle dysfunction) - Telemetry EKG Rhythm: Atrial Fibrillation (patient converted back into each fibrillation does have pauses longest being 3 seconds)
[2019-05-02] MEDS: COZAAR PO SCH (12:28)
--- NOTE | 2019-05-02 16:22 | Progress Note ---
Assessment and Plan Assessment and plan: History of present illness: 68 YO Female with PR presents to ED for evaluation. Pt has confusion and dys arthria and is unable to provide detailed history. Pt history taken from family members who are at bedside during exam and interview. per family, the patient has experienced confusion and slurred speech, and difficulty swallowing over the past 2 days with persistent symptoms over the same time frame. Pt transported to [facility] via private vehicle. Pt found to have neurologic deficit consistent with CVA as well as Encephalopathy, and Hyponatremia. A code stroke was called and teleneurology consulted. Pt is outside therapeutic window for TPA. Pt initiated on CVA protocol and admitted to telemetry. Neurology consulted in ED. No reports of fever, chills, CP, Palpitations, NVD, Trauma, seizure, vertigo, vision loss, productive cough, or recent ill contacts. No further history obtainable. No prior admission for review. No medication listed for reconciliation at time of admission. Past History Past Medical History: acute [place] CVA (cerebral vascular accident) neurology input appreciated, Liz trevino noticed on telemetry and EKG. Patient is a lesion cardiology consulted, meds optimized secondary prevention -Echo pending Encephalopathy resolved Hyponatremia syndrome IVF resuscitation therapy, resolved, Diabetes ssi DVT prophylaxis SCD to BLE while in bed, prophylactic lovenox History Interval history: still c/o expressive aphasia Review of systems Constitutional: No fevers, no malaise, no joint pains CVS: No chest pain, no orthopnea, no dyspnea on exertion, no pedal edema GI: No abdominal pain, no diarrhea, no vomiting, no constipation Respiratory: no wheezing, no coughing Hospitalist Physical - Physical exam Narrative exam: General.: Appears well, no distress, nontoxic HEENT: Moist mucous membranes, extraocular muscles intact, no lymphadenopathy Neck: supple Cardiac: S1-S2 heard Lungs: clear to auscultation bilaterally Abdomen: soft , nontender, nondistended, bowel sounds positive Extremities: no edema clubbing or cyanosis Skin: no rash or lesions Neurologic: Expressive aphasia Psych: calm, and cooperative - Constitutional Vitals: Temp Pulse Resp BP Pulse Ox 98.2 F 63 18 128/70 98 05/02/19 12:00 05/02/19 12:28 05/02/19 12:00 05/02/19 12:28 05/02/19 10:00 General appearance: Present: mild distress Results - Labs CBC & Chem 7: 04/29/19 14:11 04/29/19 14:11 Labs: Laboratory Last Values WBC 7.6 K/mm3 (4.5-11.0) 04/29/19 14:11 RBC 5.30 M/mm3 (3.65-5.03) H 04/29/19 14:11 Hgb 14.1 gm/dl (10.1-14.3) 04/29/19 14:11 Hct 45.0 % (30.3-42.9) H 04/29/19 14:11 MCV 85 fl (79-97) 04/29/19 14:11 MCH 27 pg (28-32) L 04/29/19 14:11 MCHC 31 % (30-34) 04/29/19 14:11 RDW 14.4 % (13.2-15.2) 04/29/19 14:11 Plt Count 267 K/mm3 (140-440) 04/29/19 14:11 Lymph % (Auto) 43.4 % (13.4-35.0) H 04/29/19 14:11 [place] % (Auto) 10.5 % (0.0-7.3) H 04/29/19 14:11 Eos % (Auto) 0.8 % (0.0-4.3) 04/29/19 14:11 Baso % (Auto) 0.5 % (0.0-1.8) 04/29/19 14:11 Lymph # 3.3 K/mm3 (1.2-5.4) 04/29/19 14:11 [place] # 0.8 K/mm3 (0.0-0.8) 04/29/19 14:11 Eos # 0.1 K/mm3 (0.0-0.4) 04/29/19 14:11 Baso # 0.0 K/mm3 (0.0-0.1) 04/29/19 14:11 Seg Neutrophils % 44.8 % (40.0-70.0) 04/29/19 14:11 Seg Neutrophils # 3.4 K/mm3 (1.8-7.7) 04/29/19 14:11 PT 15.5 Sec. (12.2-14.9) H 04/29/19 14:11 INR 1.26 (0.87-1.13) H 04/29/19 14:11 APTT 28.1 Sec. (24.2-36.6) 04/29/19 14:11 16.5 Sec. (15.1-19.6) 04/29/19 14:11 Sodium 135 mmol/L (137-145) L 04/29/19 14:11 Potassium 3.6 mmol/L (3.6-5.0) 04/29/19 14:11 Chloride 98.5 mmol/L (98-107) 04/29/19 14:11 Carbon Dioxide 22 mmol/L (22-30) 04/29/19 14:11 18 mmol/L 04/29/19 14:11 BUN 12 mg/dL (7-17) 04/29/19 14:11 1.2 mg/dL (0.7-1.2) 04/29/19 14:11 Estimated GFR 45 ml/min 04/29/19 14:11 10 % 04/29/19 14:11 Glucose 203 mg/dL (65-100) H 04/29/19 14:11 POC Glucose 90 (70-105) 05/02/19 11:58 5.8 % (4-6) 04/29/19 19:04 Calcium 9.7 mg/dL (8.4-10.2) 04/29/19 14:11 0.40 mg/dL (0.1-1.2) 04/29/19 14:11 AST 19 units/L (5-40) 04/29/19 14:11 ALT 19 units/L (7-56) 04/29/19 14:11 66 units/L (35-129) 04/29/19 14:11 84 units/L (30-135) 04/29/19 14:11 CK-MB (CK-2) 2.1 ng/mL (0.0-4.0) 04/29/19 14:11 CK-MB (CK-2) Rel Index 2.5 (0-4) 04/29/19 14:11 < 0.010 ng/mL (0.00-0.029) 04/29/19 14:11 8.4 g/dL (6.3-8.2) H 04/29/19 14:11 4.1 g/dL (3.9-5) 04/29/19 14:11 1.0 % 04/29/19 14:11 Triglycerides 62 mg/dL (2-149) 05/01/19 04:13 Cholesterol 238 mg/dL (50-199) H 05/01/19 04:13 202 mg/dL (50-130) H 05/01/19 04:13 46 mg/dL (40-59) 05/01/19 04:13 5.17 % 05/01/19 04:13 TSH 1.380 mlU/mL (0.270-4.200) 04/29/19 19:04 Free T4 1.28 ng/dL (0.76-1.46) 04/29/19 19:04 Yellow (Yellow) 04/29/19 16:33 Clear (Clear) 04/29/19 16:33 6.0 (5.0-7.0) 04/29/19 16:33 Ur Specific [place] 1.008 (1.003-1.030) 04/29/19 16:33 <15 mg/dl mg/dL (Negative) 04/29/19 16:33 Neg mg/dL (Negative) 04/29/19 16:33 Neg mg/dL (Negative) 04/29/19 16:33 Sm (Negative) 04/29/19 16:33 Neg (Negative) 04/29/19 16:33 Ur Reducing Substances Not Reportable 04/29/19 16:33 Neg (Negative) 04/29/19 16:33 Not Reportable 04/29/19 16:33 < 2.0 mg/dL (<2.0) 04/29/19 16:33 Ur Leukocyte Esterase Mod (Negative) 04/29/19 16:33 16.0 /HPF (0.0-6.0) H 04/29/19 16:33 5.0 /HPF (0.0-6.0) 04/29/19 16:33 U Epithel Cells (Auto) 1.0 /HPF (0-13.0) 04/29/19 16:33 4+ /HPF (Negative) 04/29/19 16:33 Few /HPF 04/29/19 16:33 Presumptive negative 04/29/19 16:33 Presumptive negative 04/29/19 16:33 Ur Barbiturates Screen Presumptive negative 04/29/19 16:33 Ur Phencyclidine Scrn Presumptive negative 04/29/19 16:33 Ur Amphetamines Screen Presumptive negative 04/29/19 16:33 U Benzodiazepines Scrn Presumptive negative 04/29/19 16:33 Presumptive negative 04/29/19 16:33 U Marijuana (THC) Screen Presumptive negative 04/29/19 16:33 Disclamer 04/29/19 16:33 Active Medications - Current Medications Current Medications: Generic Name Dose Route Start Last Admin Trade Name Freq PRN Reason Stop Dose Admin Acetaminophen 650 mg 04/29/19 15:47 05/01/19 23:39 Tylenol PO 650 mg Q4H PRN Administration Pain, Mild (1-3) Albuterol 2.5 mg 04/29/19 15:47 Proventil IH Q3HRT PRN Shortness Of Breath Aspirin 325 mg 04/30/19 10:00 05/02/19 09:34 Aspirin PO 325 mg QDAY RUT Administration Atorvastatin Calcium 40 mg 04/29/19 22:00 05/01/19 21:17 Lipitor PO 40 mg QHS RUT Administration Bisacodyl 10 mg 04/29/19 15:47 Dulcolax MD QDAY PRN Constipation Dextrose 50 ml 04/29/19 17:08 D50w (25gm) Syringe IV PRN PRN Hypoglycemia Enoxaparin Sodium 40 mg 04/30/19 10:00 05/02/19 09:35 Lovenox SUB-Q 40 mg QDAY@1000 RUT Administration Ceftriaxone Sodium 1 gm in 50 mls @ 100 mls/hr 04/30/19 12:00 05/02/19 09:35 Rocephin/Ns 1 Gm/50 Ml IV 100 mls/hr Q24HR RUT Administration Protocol Insulin Human Lispro 0 unit 04/29/19 22:00 05/02/19 12:21 Humalog SUB-Q Not Given [facility] Protocol Losartan Potassium 25 mg 05/02/19 12:00 05/02/19 12:28 Cozaar PO 25 mg QDAY RUT Administration Magnesium Hydroxide 30 ml 04/29/19 15:47 Milk Of Magnesia PO Q4H PRN Constipation Metoclopramide HCl 10 mg 04/29/19 15:47 Reglan PO Q6H PRN Nausea And Vomiting Ondansetron HCl 4 mg 04/29/19 15:47 Zofran IV Q8H PRN Nausea And Vomiting Promethazine HCl 25 mg 04/29/19 15:47 Phenergan MD Q6H PRN Nausea And Vomiting Sodium Chloride 10 ml 04/29/19 15:47 04/29/19 21:20 Sodium Chloride Flush Syringe 10 Ml IV 10 ml PRN PRN Administration LINE FLUSH
--- NOTE | 2019-05-02 16:23 | Progress Note ---
Assessment and Plan Assessment and plan: History of present illness: 68 YO Female with [place] presents to ED for evaluation. Pt has confusion and dys arthria and is unable to provide detailed history. Pt history taken from family members who are at bedside during exam and interview. per family, the patient has experienced confusion and slurred speech, and difficulty swallowing over the past 2 days with persistent symptoms over the same time frame. Pt transported to [facility] via private vehicle. Pt found to have neurologic deficit consistent with CVA as well as Encephalopathy, and Hyponatremia. A code stroke was called and teleneurology consulted. Pt is outside therapeutic window for TPA. Pt initiated on CVA protocol and admitted to telemetry. Neurology consulted in ED. No reports of fever, chills, CP, Palpitations, NVD, Trauma, seizure, vertigo, vision loss, productive cough, or recent ill contacts. No further history obtainable. No prior admission for review. No medication listed for reconciliation at time of admission. Past History Past Medical History: acute [place] CVA (cerebral vascular accident) neurology input appreciated, Liz trevino noticed on telemetry and EKG. Patient is a lesion cardiology consulted, meds optimized secondary prevention Echo shows chronic systolic heart failure, will need stress test prior to discharge, discuss a statistical programmer Chronic systolic heart failure Optimized cardiac meds, awaiting stress test Paroxysmal atrial fibrillation/hypercoagulable state Patient has been bradycardic, no need for rate control medications at this time, monitor heart rate Encephalopathy resolved Hyponatremia syndrome IVF resuscitation therapy, resolved, Diabetes ssi DVT prophylaxis SCD to BLE while in bed, prophylactic lovenox History Interval history: still c/o expressive aphasia Review of systems Constitutional: No fevers, no malaise, no joint pains CVS: No chest pain, no orthopnea, no dyspnea on exertion, no pedal edema GI: No abdominal pain, no diarrhea, no vomiting, no constipation Respiratory: no wheezing, no coughing Hospitalist Physical - Physical exam Narrative exam: General.: Appears well, no distress, nontoxic HEENT: Moist mucous membranes, extraocular muscles intact, no lymphadenopathy Neck: supple Cardiac: S1-S2 heard Lungs: clear to auscultation bilaterally Abdomen: soft , nontender, nondistended, bowel sounds positive Extremities: no edema clubbing or cyanosis Skin: no rash or lesions Neurologic: Expressive aphasia Psych: calm, and cooperative - Constitutional Vitals: Temp Pulse Resp BP Pulse Ox 98.2 F 63 18 128/70 98 05/02/19 12:00 05/02/19 12:28 05/02/19 12:00 05/02/19 12:28 05/02/19 10:00 General appearance: Present: mild distress Results - Labs CBC & Chem 7: 04/29/19 14:11 04/29/19 14:11 Labs: Laboratory Last Values WBC 7.6 K/mm3 (4.5-11.0) 04/29/19 14:11 RBC 5.30 M/mm3 (3.65-5.03) H 04/29/19 14:11 Hgb 14.1 gm/dl (10.1-14.3) 04/29/19 14:11 Hct 45.0 % (30.3-42.9) H 04/29/19 14:11 MCV 85 fl (79-97) 04/29/19 14:11 MCH 27 pg (28-32) L 04/29/19 14:11 MCHC 31 % (30-34) 04/29/19 14:11 RDW 14.4 % (13.2-15.2) 04/29/19 14:11 Plt Count 267 K/mm3 (140-440) 04/29/19 14:11 Lymph % (Auto) 43.4 % (13.4-35.0) H 04/29/19 14:11 [place] % (Auto) 10.5 % (0.0-7.3) H 04/29/19 14:11 Eos % (Auto) 0.8 % (0.0-4.3) 04/29/19 14:11 Baso % (Auto) 0.5 % (0.0-1.8) 04/29/19 14:11 Lymph # 3.3 K/mm3 (1.2-5.4) 04/29/19 14:11 [place] # 0.8 K/mm3 (0.0-0.8) 04/29/19 14:11 Eos # 0.1 K/mm3 (0.0-0.4) 04/29/19 14:11 Baso # 0.0 K/mm3 (0.0-0.1) 04/29/19 14:11 Seg Neutrophils % 44.8 % (40.0-70.0) 04/29/19 14:11 Seg Neutrophils # 3.4 K/mm3 (1.8-7.7) 04/29/19 14:11 PT 15.5 Sec. (12.2-14.9) H 04/29/19 14:11 INR 1.26 (0.87-1.13) H 04/29/19 14:11 APTT 28.1 Sec. (24.2-36.6) 04/29/19 14:11 16.5 Sec. (15.1-19.6) 04/29/19 14:11 Sodium 135 mmol/L (137-145) L 04/29/19 14:11 Potassium 3.6 mmol/L (3.6-5.0) 04/29/19 14:11 Chloride 98.5 mmol/L (98-107) 04/29/19 14:11 Carbon Dioxide 22 mmol/L (22-30) 04/29/19 14:11 18 mmol/L 04/29/19 14:11 BUN 12 mg/dL (7-17) 04/29/19 14:11 1.2 mg/dL (0.7-1.2) 04/29/19 14:11 Estimated GFR 45 ml/min 04/29/19 14:11 10 % 04/29/19 14:11 Glucose 203 mg/dL (65-100) H 04/29/19 14:11 POC Glucose 90 (70-105) 05/02/19 11:58 5.8 % (4-6) 04/29/19 19:04 Calcium 9.7 mg/dL (8.4-10.2) 04/29/19 14:11 0.40 mg/dL (0.1-1.2) 04/29/19 14:11 AST 19 units/L (5-40) 04/29/19 14:11 ALT 19 units/L (7-56) 04/29/19 14:11 66 units/L (35-129) 04/29/19 14:11 84 units/L (30-135) 04/29/19 14:11 CK-MB (CK-2) 2.1 ng/mL (0.0-4.0) 04/29/19 14:11 CK-MB (CK-2) Rel Index 2.5 (0-4) 04/29/19 14:11 < 0.010 ng/mL (0.00-0.029) 04/29/19 14:11 8.4 g/dL (6.3-8.2) H 04/29/19 14:11 4.1 g/dL (3.9-5) 04/29/19 14:11 1.0 % 04/29/19 14:11 Triglycerides 62 mg/dL (2-149) 05/01/19 04:13 Cholesterol 238 mg/dL (50-199) H 05/01/19 04:13 202 mg/dL (50-130) H 05/01/19 04:13 46 mg/dL (40-59) 05/01/19 04:13 5.17 % 05/01/19 04:13 TSH 1.380 mlU/mL (0.270-4.200) 04/29/19 19:04 Free T4 1.28 ng/dL (0.76-1.46) 04/29/19 19:04 Yellow (Yellow) 04/29/19 16:33 Clear (Clear) 04/29/19 16:33 6.0 (5.0-7.0) 04/29/19 16:33 Ur Specific [place] 1.008 (1.003-1.030) 04/29/19 16:33 <15 mg/dl mg/dL (Negative) 04/29/19 16:33 Neg mg/dL (Negative) 04/29/19 16:33 Neg mg/dL (Negative) 04/29/19 16:33 Sm (Negative) 04/29/19 16:33 Neg (Negative) 04/29/19 16:33 Ur Reducing Substances Not Reportable 04/29/19 16:33 Neg (Negative) 04/29/19 16:33 Not Reportable 04/29/19 16:33 < 2.0 mg/dL (<2.0) 04/29/19 16:33 Ur Leukocyte Esterase Mod (Negative) 04/29/19 16:33 16.0 /HPF (0.0-6.0) H 04/29/19 16:33 5.0 /HPF (0.0-6.0) 04/29/19 16:33 U Epithel Cells (Auto) 1.0 /HPF (0-13.0) 04/29/19 16:33 4+ /HPF (Negative) 04/29/19 16:33 Few /HPF 04/29/19 16:33 Presumptive negative 04/29/19 16:33 Presumptive negative 04/29/19 16:33 Ur Barbiturates Screen Presumptive negative 04/29/19 16:33 Ur Phencyclidine Scrn Presumptive negative 04/29/19 16:33 Ur Amphetamines Screen Presumptive negative 04/29/19 16:33 U Benzodiazepines Scrn Presumptive negative 04/29/19 16:33 Presumptive negative 04/29/19 16:33 U Marijuana (THC) Screen Presumptive negative 04/29/19 16:33 Disclamer 04/29/19 16:33 Active Medications - Current Medications Current Medications: Generic Name Dose Route Start Last Admin Trade Name Freq PRN Reason Stop Dose Admin Acetaminophen 650 mg 04/29/19 15:47 05/01/19 23:39 Tylenol PO 650 mg Q4H PRN Administration Pain, Mild (1-3) Albuterol 2.5 mg 04/29/19 15:47 Proventil IH Q3HRT PRN Shortness Of Breath Aspirin 325 mg 04/30/19 10:00 05/02/19 09:34 Aspirin PO 325 mg QDAY RUT Administration Atorvastatin Calcium 40 mg 04/29/19 22:00 05/01/19 21:17 Lipitor PO 40 mg QHS RUT Administration Bisacodyl 10 mg 04/29/19 15:47 Dulcolax [place] QDAY PRN Constipation Dextrose 50 ml 04/29/19 17:08 D50w (25gm) Syringe IV PRN PRN Hypoglycemia Enoxaparin Sodium 40 mg 04/30/19 10:00 05/02/19 09:35 Lovenox SUB-Q 40 mg QDAY@1000 RUT Administration Ceftriaxone Sodium 1 gm in 50 mls @ 100 mls/hr 04/30/19 12:00 05/02/19 09:35 Rocephin/Ns 1 Gm/50 Ml IV 100 mls/hr Q24HR RUT Administration Protocol Insulin Human Lispro 0 unit 04/29/19 22:00 05/02/19 12:21 Humalog SUB-Q Not Given ACHS RUT Protocol Losartan Potassium 25 mg 05/02/19 12:00 08/11/19 12:28 Cozaar PO 25 mg QDAY RUT Administration Magnesium Hydroxide 30 ml 04/29/19 15:47 Milk Of Magnesia PO Q4H PRN Constipation Metoclopramide HCl 10 mg 04/29/19 15:47 Reglan PO Q6H PRN Nausea And Vomiting Ondansetron HCl 4 mg 04/29/19 15:47 Zofran IV Q8H PRN Nausea And Vomiting Promethazine HCl 25 mg 04/29/19 15:47 Phenergan MN Q6H PRN Nausea And Vomiting Sodium Chloride 10 ml 04/29/19 15:47 04/29/19 21:20 Sodium Chloride Flush Syringe 10 Ml IV 10 ml PRN PRN Administration LINE FLUSH
[2019-05-02] MEDS: SODIUM CHLORIDE FLUSH SYRINGE 10 ML IV PRN (22:12)
[2019-05-03 04:57] LABS: Hematocrit 38.3 % (30.3-42.9); Hemoglobin 12.5 gm/dl (10.1-14.3); Mean Corpuscular HGB Conc 33 % (30-34); Mean Corpuscular Volume 84 fl (79-97); Platelet Count 233 K/mm3 (140-440); Red Blood Count 4.56 M/mm3 (3.65-5.03); Red Cell Distribution Width 13.9 % (13.2-15.2)
[2019-05-03 05:20] LABS: Alanine Aminotransferase 10 units/L (7-56); Albumin 3.5 g/dL (3.9-5); BUN/Creatinine Ratio 10; Blood Urea Nitrogen 9 mg/dL (7-17); Calcium 9.1 mg/dL (8.4-10.2); Hemolysis Index 2
[2019-05-03] MEDS ORDERED: LEXISCAN IV ONE (07:02)
[2019-05-03 07:05] LABS: Basophils % (Manual) 0 % (0.0-1.8); Platelet Estimate Consistent w Auto; RBC Morphology Normal; Total Cells Counted 100
[2019-05-03] MEDS: HumaLOG SUB-Q SCH ×3 (07:58→16:23)
--- NOTE | 2019-05-03 10:34 | Progress Note ---
Assessment and Plan Awaiting results of nuclear stress test. Recommend EP consult d/t bradycardia and pauses. Continue to hold AV remy blocking agents. Continue losartan for cardiomyopathy. She will need anticoagulation, but will initiate 10-12 days post-CVA per neurology. Further recommendations pending hospital course. The patient has been seen in conjunction with Dr. Ramirez, who agrees with assessment and plan. - Patient Problems (1) CVA (cerebral vascular accident) Current Visit: Yes Status: Acute Qualifiers: Precerebral and cerebral artery: middle cerebral artery Laterality of affected vessel: left (2) Atrial fibrillation and flutter Current Visit: Yes Status: Acute (3) Bradycardia Current Visit: Yes Status: Acute (4) Diabetes Current Visit: Yes Status: Chronic (5) H/O: hypertension Current Visit: Yes Status: Acute (6) Hyperlipidemia Current Visit: Yes Status: Chronic Subjective Date of service: 05/03/19 Principal diagnosis: afib Interval history: The patient was evaluated in the stress lab. She has no complaints and is more verbal today. Bradycardia with multiple 2-3 second pauses noted on telemetry. Objective Vital Signs Temp Pulse Resp BP BP Pulse Ox 05/03/19 04:27 98.0 F 47 L 18 134/76 99 05/02/19 23:55 98.0 F 53 L 20 138/84 100 05/02/19 22:00 53 L 05/02/19 19:04 98.3 F 47 L 18 120/69 98 05/02/19 18:05 97.9 F 77 19 119/71 98 05/02/19 16:25 77 97 05/02/19 12:28 63 128/70 05/02/19 12:00 98.2 F 31 L 18 128/70 - Physical Examination General: Appears Well HEENT: Positive: PERRL Neck: Positive: neck supple Cardiac: Positive: irregularly irregular, Bradycardia, Other (Sinus pauses noted) Lungs: Positive: Normal Exam Neuro: Positive: Other (s/p CVA) Abdomen: Positive: Unremarkable Skin: Positive: Clear Musculoskeletal: No Pain Extremities: Present: normal - Labs and Meds Cardiac Enzymes 05/03/19 Range/Units 04:31 AST 14 (5-40) units/L CBC 05/03/19 Range/Units 04:31 WBC 4.1 L (4.5-11.0) K/mm3 RBC 4.56 (3.65-5.03) M/mm3 Hgb 12.5 (10.1-14.3) gm/dl Hct 38.3 (30.3-42.9) % Plt Count 233 (140-440) K/mm3 Comprehensive Metabolic Panel 05/03/19 Range/Units 04:31 Sodium 141 (137-145) mmol/L Potassium 4.1 (3.6-5.0) mmol/L Chloride 105.0 (98-107) mmol/L Carbon Dioxide 25 (22-30) mmol/L BUN 9 (7-17) mg/dL Creatinine 0.9 (0.7-1.2) mg/dL Glucose 87 (65-100) mg/dL Calcium 9.1 (8.4-10.2) mg/dL AST 14 (5-40) units/L ALT 10 (7-56) units/L Alkaline Phosphatase 53 (35-129) units/L Total Protein 6.9 (6.3-8.2) g/dL Albumin 3.5 L (3.9-5) g/dL - Imaging and Cardiology EKG: report reviewed (Atrial fibrillation with LVH) Echo: report reviewed (moderate LV dysfunction EF 35-40% severe left atrial enlargement negative bubble study mild right ventricle dysfunction) - Telemetry EKG Rhythm: Sinus Bradycardia (with sinus pauses)
[2019-05-03] MEDS: ASPIRIN PO SCH (10:35)
[2019-05-03] MEDS: ROCEPHIN/NS 1 GM/50 ML 1 GM/50 ML BAG IV SCH (10:36)
[2019-05-03] MEDS: LOVENOX SUB-Q SCH (10:36)
[2019-05-03] MEDS: COZAAR PO SCH (10:36)
--- NOTE | 2019-05-03 11:25 | Progress Note ---
Assessment and Plan Assessment and plan: History of present illness: 68 YO Female with NV presents to ED for evaluation. Pt has confusion and dys arthria and is unable to provide detailed history. Pt history taken from family members who are at bedside during exam and interview. per family, the patient has experienced confusion and slurred speech, and difficulty swallowing over the past 2 days with persistent symptoms over the same time frame. Pt transported to [facility] via private vehicle. Pt found to have neurologic deficit consistent with CVA as well as Encephalopathy, and Hyponatremia. A code stroke was called and teleneurology consulted. Pt is outside therapeutic window for TPA. Pt initiated on CVA protocol and admitted to telemetry. Neurology consulted in ED. No reports of fever, chills, CP, Palpitations, NVD, Trauma, seizure, vertigo, vision loss, productive cough, or recent ill contacts. No further history obtainable. No prior admission for review. No medication listed for reconciliation at time of admission. Past History Past Medical History: acute NV CVA (cerebral vascular accident) neurology input appreciated, Liz trevino noticed on telemetry and EKG. cardiology consulted, meds optimized secondary prevention Echo shows chronic systolic heart failure, awaiting stress test per neurology, recommend starting anti-coagulation in 10-12 days from symptoms onset, as to decrease risk of hemorrhagic conversion of infarct. plan for eliquis Chronic systolic heart failure Optimized cardiac meds, awaiting stress test Paroxysmal atrial fibrillation/hypercoagulable state Patient has been bradycardic, no need for rate control medications at this time, monitor heart rate EP consulted, patient is persistently bradycardic, may need PM acute metabolic Encephalopathy resolved Hyponatremia syndrome IVF resuscitation therapy, resolved, Diabetes ssi DVT prophylaxis SCD to BLE while in bed, prophylactic lovenox History Interval history: still c/o expressive aphasia, but admits it has improved Review of systems Constitutional: No fevers, no malaise, no joint pains CVS: No chest pain, no orthopnea, no dyspnea on exertion, no pedal edema GI: No abdominal pain, no diarrhea, no vomiting, no constipation Respiratory: no wheezing, no coughing Hospitalist Physical - Physical exam Narrative exam: General.: Appears well, no distress, nontoxic HEENT: Moist mucous membranes, extraocular muscles intact, no lymphadenopathy Neck: supple Cardiac: S1-S2 heard Lungs: clear to auscultation bilaterally Abdomen: soft , nontender, nondistended, bowel sounds positive Extremities: no edema clubbing or cyanosis Skin: no rash or lesions Neurologic: expressive aphasia is less today, improving Psych: calm, and cooperative - Constitutional Vitals: Temp Pulse Resp BP Pulse Ox 97.8 F 67 18 138/74 99 05/03/19 08:24 05/03/19 10:36 05/03/19 04:27 05/03/19 10:36 05/03/19 04:27 Results - Labs CBC & Chem 7: 05/04/19 05:44 05/04/19 05:44 Labs: Laboratory Last Values WBC 4.1 K/mm3 (4.5-11.0) L 05/03/19 04:31 RBC 4.56 M/mm3 (3.65-5.03) 05/03/19 04:31 Hgb 12.5 gm/dl (10.1-14.3) 05/03/19 04:31 Hct 38.3 % (30.3-42.9) 05/03/19 04:31 MCV 84 fl (79-97) 05/03/19 04:31 MCH 27 pg (28-32) L 05/03/19 04:31 MCHC 33 % (30-34) 05/03/19 04:31 RDW 13.9 % (13.2-15.2) 05/03/19 04:31 Plt Count 233 K/mm3 (140-440) 05/03/19 04:31 Lymph % (Auto) Fish Straightener 05/03/19 04:31 Branch % (Auto) 10.5 % (0.0-7.3) H 04/29/19 14:11 Eos % (Auto) 0.8 % (0.0-4.3) 04/29/19 14:11 Baso % (Auto) 0.5 % (0.0-1.8) 04/29/19 14:11 Lymph # 3.3 K/mm3 (1.2-5.4) 04/29/19 14:11 Branch # 0.8 K/mm3 (0.0-0.8) 04/29/19 14:11 Eos # 0.1 K/mm3 (0.0-0.4) 04/29/19 14:11 Baso # 0.0 K/mm3 (0.0-0.1) 04/29/19 14:11 Add Manual Diff Complete 05/03/19 04:31 Total Counted 100 05/03/19 04:31 Seg Neutrophils % Fish Straightener 05/03/19 04:31 Seg Neuts % (Manual) 31.0 % (40.0-70.0) L 05/03/19 04:31 0 % 05/03/19 04:31 55.0 % (13.4-35.0) H 05/03/19 04:31 Reactive Lymphs % (Man) 0 % 05/03/19 04:31 10.0 % (0.0-7.3) H 05/03/19 04:31 4.0 % (0.0-4.3) 05/03/19 04:31 0 % (0.0-1.8) 05/03/19 04:31 0 % 05/03/19 04:31 0 % 05/03/19 04:31 0 % 05/03/19 04:31 0 % 05/03/19 04:31 Nucleated RBC % Not Reportable 05/03/19 04:31 Seg Neutrophils # 3.4 K/mm3 (1.8-7.7) 04/29/19 14:11 Seg Neutrophils # Man 1.3 K/mm3 (1.8-7.7) L 05/03/19 04:31 Band Neutrophils # 0.0 K/mm3 05/03/19 04:31 2.3 K/mm3 (1.2-5.4) 05/03/19 04:31 Abs React Lymphs (Man) 0.0 K/mm3 05/03/19 04:31 0.4 K/mm3 (0.0-0.8) 05/03/19 04:31 0.2 K/mm3 (0.0-0.4) 05/03/19 04:31 0.0 K/mm3 (0.0-0.1) 05/03/19 04:31 0.0 K/mm3 05/03/19 04:31 0.0 K/mm3 05/03/19 04:31 0.0 K/mm3 05/03/19 04:31 Blast Cells # 0.0 K/mm3 05/03/19 04:31 WBC Morphology Not Reportable 05/03/19 04:31 Hypersegmented Neuts Not Reportable 05/03/19 04:31 Hyposegmented Neuts Not Reportable 05/03/19 04:31 Hypogranular Neuts Not Reportable 05/03/19 04:31 Not Reportable 05/03/19 04:31 Not Reportable 05/03/19 04:31 Not Reportable 05/03/19 04:31 Not Reportable 05/03/19 04:31 Not Reportable 05/03/19 04:31 Not Reportable 05/03/19 04:31 Consistent w auto 05/03/19 04:31 Not Reportable 05/03/19 04:31 Plt Clumps, EDTA Not Reportable 05/03/19 04:31 Not Reportable 05/03/19 04:31 Not Reportable 05/03/19 04:31 Not Reportable 05/03/19 04:31 Plt Morphology Comment Not Reportable 05/03/19 04:31 RBC Morphology Normal 05/03/19 04:31 Dimorphic RBCs Not Reportable 05/03/19 04:31 Not Reportable 05/03/19 04:31 Not Reportable 05/03/19 04:31 Not Reportable 05/03/19 04:31 Not Reportable 05/03/19 04:31 Not Reportable 05/03/19 04:31 Not Reportable 05/03/19 04:31 Not Reportable 05/03/19 04:31 Not Reportable 05/03/19 04:31 Not Reportable 05/03/19 04:31 Not Reportable 05/03/19 04:31 Not Reportable 05/03/19 04:31 Not Reportable 05/03/19 04:31 Not Reportable 05/03/19 04:31 Not Reportable 05/03/19 04:31 Not Reportable 05/03/19 04:31 Not Reportable 05/03/19 04:31 Not Reportable 05/03/19 04:31 Not Reportable 05/03/19 04:31 Not Reportable 05/03/19 04:31 Acanthocytes (Spur) Not Reportable 05/03/19 04:31 Rouleaux Not Reportable 05/03/19 04:31 Not Reportable 05/03/19 04:31 Not Reportable 05/03/19 04:31 Not Reportable 05/03/19 04:31 Not Reportable 05/03/19 04:31 Hem Pathologist Commnt No 05/03/19 04:31 PT 15.5 Sec. (12.2-14.9) H 04/29/19 14:11 INR 1.26 (0.87-1.13) H 04/29/19 14:11 APTT 28.1 Sec. (24.2-36.6) 04/29/19 14:11 16.5 Sec. (15.1-19.6) 04/29/19 14:11 Sodium 141 mmol/L (137-145) 05/03/19 04:31 Potassium 4.1 mmol/L (3.6-5.0) 05/03/19 04:31 Chloride 105.0 mmol/L (98-107) 05/03/19 04:31 Carbon Dioxide 25 mmol/L (22-30) 05/03/19 04:31 15 mmol/L 05/03/19 04:31 BUN 9 mg/dL (7-17) 05/03/19 04:31 0.9 mg/dL (0.7-1.2) 05/03/19 04:31 Estimated GFR > 60 ml/min 05/03/19 04:31 10 % 05/03/19 04:31 Glucose 87 mg/dL (65-100) 05/03/19 04:31 POC Glucose 90 (70-105) 05/02/19 11:58 5.8 % (4-6) 04/29/19 19:04 Calcium 9.1 mg/dL (8.4-10.2) 05/03/19 04:31 Magnesium 2.00 mg/dL (1.7-2.3) 05/03/19 04:31 0.30 mg/dL (0.1-1.2) 05/03/19 04:31 AST 14 units/L (5-40) 05/03/19 04:31 ALT 10 units/L (7-56) 05/03/19 04:31 53 units/L (35-129) 05/03/19 04:31 84 units/L (30-135) 04/29/19 14:11 CK-MB (CK-2) 2.1 ng/mL (0.0-4.0) 04/29/19 14:11 CK-MB (CK-2) Rel Index 2.5 (0-4) 04/29/19 14:11 < 0.010 ng/mL (0.00-0.029) 04/29/19 14:11 6.9 g/dL (6.3-8.2) 05/03/19 04:31 3.5 g/dL (3.9-5) L 05/03/19 04:31 1.0 % 05/03/19 04:31 Triglycerides 62 mg/dL (2-149) 05/01/19 04:13 Cholesterol 238 mg/dL (50-199) H 05/01/19 04:13 202 mg/dL (50-130) H 05/01/19 04:13 46 mg/dL (40-59) 05/01/19 04:13 5.17 % 05/01/19 04:13 TSH 1.380 mlU/mL (0.270-4.200) 04/29/19 19:04 Free T4 1.28 ng/dL (0.76-1.46) 04/29/19 19:04 Yellow (Yellow) 04/29/19 16:33 Clear (Clear) 04/29/19 16:33 6.0 (5.0-7.0) 04/29/19 16:33 Ur Specific [place] 1.008 (1.003-1.030) 04/29/19 16:33 <15 mg/dl mg/dL (Negative) 04/29/19 16:33 Neg mg/dL (Negative) 04/29/19 16:33 Neg mg/dL (Negative) 04/29/19 16:33 Sm (Negative) 04/29/19 16:33 Neg (Negative) 04/29/19 16:33 Ur Reducing Substances Not Reportable 04/29/19 16:33 Neg (Negative) 04/29/19 16:33 Not Reportable 04/29/19 16:33 < 2.0 mg/dL (<2.0) 04/29/19 16:33 Ur Leukocyte Esterase Mod (Negative) 04/29/19 16:33 16.0 /HPF (0.0-6.0) H 04/29/19 16:33 5.0 /HPF (0.0-6.0) 04/29/19 16:33 U Epithel Cells (Auto) 1.0 /HPF (0-13.0) 04/29/19 16:33 4+ /HPF (Negative) 04/29/19 16:33 Few /HPF 04/29/19 16:33 Presumptive negative 04/29/19 16:33 Presumptive negative 04/29/19 16:33 Ur Barbiturates Screen Presumptive negative 04/29/19 16:33 Ur Phencyclidine Scrn Presumptive negative 04/29/19 16:33 Ur Amphetamines Screen Presumptive negative 04/29/19 16:33 U Benzodiazepines Scrn Presumptive negative 04/29/19 16:33 Presumptive negative 04/29/19 16:33 U Marijuana (THC) Screen Presumptive negative 04/29/19 16:33 Disclamer 04/29/19 16:33 Active Medications - Current Medications Current Medications: Generic Name Dose Route Start Last Admin Trade Name Freq PRN Reason Stop Dose Admin Acetaminophen 650 mg 04/29/19 15:47 05/01/19 23:39 Tylenol PO 650 mg Q4H PRN Administration Pain, Mild (1-3) Albuterol 2.5 mg 04/29/19 15:47 Proventil IH Q3HRT PRN Shortness Of Breath Aspirin 325 mg 04/30/19 10:00 05/03/19 10:35 Aspirin PO 325 mg QDAY RUT Administration Atorvastatin Calcium 40 mg 04/29/19 22:00 05/02/19 22:11 Lipitor PO 40 mg QHS RUT Administration Bisacodyl 10 mg 04/29/19 15:47 Dulcolax MS QDAY PRN Constipation Dextrose 50 ml 04/29/19 17:08 D50w (25gm) Syringe IV PRN PRN Hypoglycemia Enoxaparin Sodium 40 mg 04/30/19 10:00 05/03/19 10:36 Lovenox SUB-Q 40 mg QDAY@1000 RUT Administration Ceftriaxone Sodium 1 gm in 50 mls @ 100 mls/hr 04/30/19 12:00 05/03/19 10:36 Rocephin/Ns 1 Gm/50 Ml IV 100 mls/hr Q24HR RUT Administration Protocol Insulin Human Lispro 0 unit 04/29/19 22:00 05/03/19 07:58 Humalog SUB-Q Not Given ACHS RUT Protocol Losartan Potassium 25 mg 05/02/19 12:00 05/03/19 10:36 Cozaar PO 25 mg QDAY RUT Administration Magnesium Hydroxide 30 ml 04/29/19 15:47 Milk Of Magnesia PO Q4H PRN Constipation Metoclopramide HCl 10 mg 04/29/19 15:47 Reglan PO Q6H PRN Nausea And Vomiting Ondansetron HCl 4 mg 04/29/19 15:47 Zofran IV Q8H PRN Nausea And Vomiting Promethazine HCl 25 mg 04/29/19 15:47 Phenergan MS Q6H PRN Nausea And Vomiting Sodium Chloride 10 ml 04/29/19 15:47 05/02/19 22:12 Sodium Chloride Flush Syringe 10 Ml IV 10 ml PRN PRN Administration LINE FLUSH
--- NOTE | 2019-05-03 13:52 | Event Note ---
Date: 05/03/19 Nuclear stress test reviewed. The study was of suboptimal quality. EF noted to be 36%. Cannot rule out area of inferoapical and possibly lateral ischemia. May benefit from a cardiac catheterization prior to discharge to definitively evaluate. Misa Crespo NP / Sung Ramirez MD
[2019-05-03] MEDS: SODIUM CHLORIDE FLUSH SYRINGE 10 ML IV PRN (21:52)
[2019-05-04] MEDS: HumaLOG SUB-Q SCH ×2 (00:39→08:15)
[2019-05-04 06:05] LABS: Hematocrit 37.5 % (30.3-42.9); Hemoglobin 11.9 gm/dl (10.1-14.3); Mean Corpuscular HGB Conc 32 % (30-34); Mean Corpuscular Volume 84 fl (79-97); Platelet Count 216 K/mm3 (140-440); Red Blood Count 4.45 M/mm3 (3.65-5.03)
[2019-05-04 06:07] LABS: INR 1.21 (0.87-1.13)
[2019-05-04 06:16] LABS: BUN/Creatinine Ratio 9; Blood Urea Nitrogen 9 mg/dL (7-17); Calcium 9.1 mg/dL (8.4-10.2); Hemolysis Index 6
[2019-05-04 07:19] LABS: Total Cells Counted 100
[2019-05-04 07:21] LABS: Anisocytosis 1+; Ovalocytes Few
[2019-05-04 07:22] LABS: Platelet Estimate Consistent w Auto
--- NOTE | 2019-05-04 10:04 | Treadmill Report ---
NUCLEAR CARDIAC IMAGING REPORT INDICATION FOR PROCEDURE: New onset heart failure. CONSENT: Informed consent was obtained. Rest and stress nuclear cardiac imaging were performed following the intravenous administration of technetium-99m Myoview per protocol. Vasodilator stress was achieved with the intravenous administration of intravenous Lexiscan per protocol. Images were acquired in a 180-degree arc from 45 degrees ROSENBERG to 45 degrees LPO. After data acquisition and reconstruction, the images were processed and reoriented into the vertical long, horizontal long and horizontal short axis slices. A polar color map of the horizontal short axis slices was generated and viewed. The rotating planar images reviewed in cinematic format on the computer console. Gated SPECT imaging demonstrates a left ventricular ejection fraction of 36%. The left ventricle is diffusely hypokinetic. Myocardial perfusion imaging demonstrates no significant cavity change between stress and rest. The images are technically suboptimal with increased isotope activity from the GI tract, obscuring the inferior wall of the left ventricle particularly on the resting acquisition. There is, however, a small moderately intense reversible inferolateral and apical perfusion abnormality. The significance of this defect is unclear in light of the poor image quality. Nuclear cardiac imaging demonstrates moderately severe left ventricular systolic function. There is no definite evidence for prior myocardial necrosis. A region of inferoapical as well as possibly lateral wall myocardial ischemia cannot be excluded. [facility]# [id number] FRANCO/SRIDEVI BIGGS
[2019-05-04] MEDS: COZAAR PO SCH (10:33)
[2019-05-04] MEDS: ROCEPHIN/NS 1 GM/50 ML 1 GM/50 ML BAG IV SCH (10:33)
[2019-05-04] MEDS: LOVENOX SUB-Q SCH (10:34)
[2019-05-04] MEDS: ASPIRIN PO SCH (10:34)
--- NOTE | 2019-05-04 10:51 | Progress Note ---
Assessment and Plan Based on unclear stress test results, patient will undergo cardiac catheterization tomorrow. Risks and benefits of procedures explained to patient and she is amenable to proceed. NPO after midnight. Per neurology, will continue to hold anticoagulation until 10-12 days after stroke. Will also obtain EP evaluation. The patient has been seen in conjunction with Dr. Ramirez, who agrees with the assessment and plan. - Patient Problems (1) CVA (cerebral vascular accident) Current Visit: Yes Status: Acute (2) Atrial fibrillation and flutter Current Visit: Yes Status: Acute (3) Bradycardia Current Visit: Yes Status: Acute (4) Diabetes Current Visit: Yes Status: Chronic (5) H/O: hypertension Current Visit: Yes Status: Acute (6) Hyperlipidemia Current Visit: Yes Status: Chronic Subjective Date of service: 05/04/19 Principal diagnosis: afib Interval history: Patient sitting in chair in NAD. No complaints. She is more verbal and interactive today. SR with PACs on telemetry. Objective Last Vital Signs Temp 98.1 F 05/04/19 08:31 Pulse 62 05/04/19 10:33 Resp 18 05/04/19 08:31 BP 130/92 05/04/19 10:33 Pulse Ox 97 05/04/19 08:31 - Physical Examination General: No Apparent Distress HEENT: Positive: PERRL Neck: Positive: neck supple Cardiac: Positive: Irregularly Regular Neuro: Positive: Other (s/p CVA) Abdomen: Positive: Unremarkable /Rectal: Other (Deferred) Skin: Positive: Clear Musculoskeletal: No Pain Extremities: Present: normal - Labs and Meds Coagulation 05/04/19 Range/Units 05:44 PT 15.0 H (12.2-14.9) Sec. INR 1.21 H (0.87-1.13) CBC 05/04/19 Range/Units 05:44 WBC 4.6 (4.5-11.0) K/mm3 RBC 4.45 (3.65-5.03) M/mm3 Hgb 11.9 (10.1-14.3) gm/dl Hct 37.5 (30.3-42.9) % Plt Count 216 (140-440) K/mm3 Lymph # Plant Maintenance Mechanic [place] # Plant Maintenance Mechanic Eos # Plant Maintenance Mechanic Baso # Plant Maintenance Mechanic Comprehensive Metabolic Panel 05/04/19 Range/Units 05:44 Sodium 140 (137-145) mmol/L Potassium 4.1 (3.6-5.0) mmol/L Chloride 105.9 (98-107) mmol/L Carbon Dioxide 23 (22-30) mmol/L BUN 9 (7-17) mg/dL Creatinine 1.0 (0.7-1.2) mg/dL Glucose 83 (65-100) mg/dL Calcium 9.1 (8.4-10.2) mg/dL - Imaging and Cardiology EKG: report reviewed (Atrial fibrillation with LVH) Stress echo: report reviewed (The study was of suboptimal quality. EF noted to be 36%. Cannot rule out area of inferoapical and possibly lateral ischemia. May benefit from a cardiac catheterization prior to discharge to definitively evaluate.) Echo: report reviewed (moderate LV dysfunction EF 35-40% severe left atrial enlargement negative bubble study mild right ventricle dysfunction)
[2019-05-04] MEDS ORDERED: NACL 0.9% 500 ML 500 ML IV SCH (11:00)
--- NOTE | 2019-05-04 11:19 | Progress Note ---
Assessment and Plan Assessment and plan: Patient is a 68 yo woman with a history of CAD s/p ME who presented to [facility] ED on 04/29/19 with confusion and dysarthria. Pt history taken from family members who are at bedside during exam and interview. per family, the patient has experienced confusion and slurred speech, and difficulty swallowing over the past 2 days with persistent symptoms over the same time frame. Pt [facility] via private vehicle. Pt found to have neurologic deficit consistent with CVA as well as Encephalopathy, and Hyponatremia. A code stroke was called and teleneurology consulted. Pt is outside therapeutic window for TPA. Pt initiated on CVA protocol and admitted to telemetry. Neurology consulted in ED. Nuclear stress test reviewed. The study was of suboptimal quality. EF noted to be 36%. Cannot rule out area of inferoapical and possibly lateral ischemia. May benefit from a cardiac catheterization prior to discharge to definitively evaluate. * MRI brain without contrast IMPRESSION: 1. There are patchy areas of acute infarction within the left MCA distribution as detailed above * 04/29/19 2D ECHO conclusions: Global LVSF is moderately decreased, estimated EF 35-40%, left atrium is severely dilated, RVSF is mildly reduced, mild MR, mild TR, RVSP calculated at 31mmHg, no ASD * Carotid ultrasound reveals insignificant >50% bilateral stenosis Acute ischemic stroke/CVA (cerebral vascular accident): treat with asa/statins Cardiomyopathy, EF 35-40%: ischemic evaluation with [facility] pending d/w Dr. Ashley Hill fib noticed on telemetry and EKG. cardiology consulted, meds optimized secondary prevention, per neurology, recommend starting Eliquis in 10-12 days from symptoms onset, as to decrease risk of hemorrhagic conversion of infarct. Chronic systolic heart failure; Optimized cardiac meds, awaiting stress test Bradycardia: EP consulted, patient is persistently bradycardic, may need PM Acute metabolic Encephalopathy resolved Hyponatremia syndrome treated with IVF resuscitation therapy, resolved, DVT prophylaxis reviewed: on sq lovenox Disposition: continue inpatient care, [facility] tomorrow and possible d/c home afterwards History Interval history: Patient was seen and examined. Follow-up on current diagnosis AFib. No overnight events reported to me. Patient denies any chest pain, shortness breath, nausea/vomiting or severe headaches. Imaging, nursing note, chart, labs and old chart reviewed. Discussed with patient. Hospitalist Physical - Physical exam Narrative exam: Gen: thin, NAD, Awake, Alert, Orientated HEENT: NCAT, EOMI, PERRL, OP Clear Neck: supple, no adenopathy, no thyromegaly, no JVD CVS/Heart: mackenzie, normal S1S2, pulses present bilaterally Chest/Lungs: CTA B, Symmetrical chest expansion, good air entry bilaterally GI/Abdomen: soft, NTND, good bowel sounds, no guarding or rebound /Bladder: no suprapubic tenderness, no CVA or paraspinal tenderness Extermity/Skin: no c/c/e, no obvious rash MSK: FROM x 4 Neuro: CN 2-12 grossly intact, no new focal deficits Psych: calm - Constitutional Vitals: Temp Pulse Resp BP Pulse Ox 98.1 F 62 18 130/92 97 05/04/19 08:31 05/04/19 10:33 05/04/19 08:31 05/04/19 10:33 05/04/19 08:31 General appearance: Absent: mild distress Results - Labs CBC & Chem 7: 05/04/19 05:44 05/04/19 05:44 Labs: Laboratory Last Values WBC 4.6 K/mm3 (4.5-11.0) 05/04/19 05:44 RBC 4.45 M/mm3 (3.65-5.03) 05/04/19 05:44 Hgb 11.9 gm/dl (10.1-14.3) 05/04/19 05:44 Hct 37.5 % (30.3-42.9) 05/04/19 05:44 MCV 84 fl (79-97) 05/04/19 05:44 MCH 27 pg (28-32) L 05/04/19 05:44 MCHC 32 % (30-34) 05/04/19 05:44 RDW 14.0 % (13.2-15.2) 05/04/19 05:44 Plt Count 216 K/mm3 (140-440) 05/04/19 05:44 Lymph % (Auto) Fpga Engineer 05/04/19 05:44 [place] % (Auto) Fpga Engineer 05/04/19 05:44 Eos % (Auto) Fpga Engineer 05/04/19 05:44 Baso % (Auto) Fpga Engineer 05/04/19 05:44 Lymph # Fpga Engineer 05/04/19 05:44 [place] # Fpga Engineer 05/04/19 05:44 Eos # Fpga Engineer 05/04/19 05:44 Baso # Fpga Engineer 05/04/19 05:44 Add Manual Diff Complete 05/04/19 05:44 Total Counted 100 05/04/19 05:44 Seg Neutrophils % Fpga Engineer 05/04/19 05:44 Seg Neuts % (Manual) 27.0 % (40.0-70.0) L 05/04/19 05:44 0 % 05/04/19 05:44 65.0 % (13.4-35.0) H 05/04/19 05:44 Reactive Lymphs % (Man) 0 % 05/04/19 05:44 5.0 % (0.0-7.3) 05/04/19 05:44 2.0 % (0.0-4.3) 05/04/19 05:44 1.0 % (0.0-1.8) 05/04/19 05:44 0 % 05/04/19 05:44 0 % 05/04/19 05:44 0 % 05/04/19 05:44 0 % 05/04/19 05:44 Nucleated RBC % Not Reportable 05/04/19 05:44 Seg Neutrophils # Fpga Engineer 05/04/19 05:44 Seg Neutrophils # Man 1.2 K/mm3 (1.8-7.7) L 05/04/19 05:44 Band Neutrophils # 0.0 K/mm3 05/04/19 05:44 3.0 K/mm3 (1.2-5.4) 05/04/19 05:44 Abs React Lymphs (Man) 0.0 K/mm3 05/04/19 05:44 0.2 K/mm3 (0.0-0.8) 05/04/19 05:44 0.1 K/mm3 (0.0-0.4) 05/04/19 05:44 0.0 K/mm3 (0.0-0.1) 05/04/19 05:44 0.0 K/mm3 05/04/19 05:44 0.0 K/mm3 05/04/19 05:44 0.0 K/mm3 05/04/19 05:44 Blast Cells # 0.0 K/mm3 05/04/19 05:44 WBC Morphology Not Reportable 05/04/19 05:44 Hypersegmented Neuts Not Reportable 05/04/19 05:44 Hyposegmented Neuts Not Reportable 05/04/19 05:44 Hypogranular Neuts Not Reportable 05/04/19 05:44 Not Reportable 05/04/19 05:44 Not Reportable 05/04/19 05:44 Not Reportable 05/04/19 05:44 Not Reportable 05/04/19 05:44 Not Reportable 05/04/19 05:44 Not Reportable 05/04/19 05:44 Consistent w auto 05/04/19 05:44 Not Reportable 05/04/19 05:44 Plt Clumps, EDTA Not Reportable 05/04/19 05:44 Not Reportable 05/04/19 05:44 Not Reportable 05/04/19 05:44 Not Reportable 05/04/19 05:44 Plt Morphology Comment Not Reportable 05/04/19 05:44 RBC Morphology Not Reportable 05/04/19 05:44 Dimorphic RBCs Not Reportable 05/04/19 05:44 Not Reportable 05/04/19 05:44 Not Reportable 05/04/19 05:44 Not Reportable 05/04/19 05:44 1+ 05/04/19 05:44 Not Reportable 05/04/19 05:44 Not Reportable 05/04/19 05:44 Not Reportable 05/04/19 05:44 Not Reportable 05/04/19 05:44 Not Reportable 05/04/19 05:44 Not Reportable 05/04/19 05:44 Not Reportable 05/04/19 05:44 Few 05/04/19 05:44 Not Reportable 05/04/19 05:44 Not Reportable 05/04/19 05:44 Not Reportable 05/04/19 05:44 Not Reportable 05/04/19 05:44 Not Reportable 05/04/19 05:44 Not Reportable 05/04/19 05:44 Rare 05/04/19 05:44 Acanthocytes (Spur) Not Reportable 05/04/19 05:44 Rouleaux Not Reportable 05/04/19 05:44 Not Reportable 05/04/19 05:44 Not Reportable 05/04/19 05:44 Not Reportable 05/04/19 05:44 Not Reportable 05/04/19 05:44 Hem Pathologist Commnt No 05/04/19 05:44 PT 15.0 Sec. (12.2-14.9) H 05/04/19 05:44 INR 1.21 (0.87-1.13) H 05/04/19 05:44 APTT 28.1 Sec. (24.2-36.6) 04/29/19 14:11 16.5 Sec. (15.1-19.6) 04/29/19 14:11 Sodium 140 mmol/L (137-145) 05/04/19 05:44 Potassium 4.1 mmol/L (3.6-5.0) 05/04/19 05:44 Chloride 105.9 mmol/L (98-107) 05/04/19 05:44 Carbon Dioxide 23 mmol/L (22-30) 05/04/19 05:44 15 mmol/L 05/04/19 05:44 BUN 9 mg/dL (7-17) 05/04/19 05:44 1.0 mg/dL (0.7-1.2) 05/04/19 05:44 Estimated GFR > 60 ml/min 05/04/19 05:44 9 % 05/04/19 05:44 Glucose 83 mg/dL (65-100) 05/04/19 05:44 POC Glucose 105 (70-105) 05/03/19 20:26 5.8 % (4-6) 04/29/19 19:04 Calcium 9.1 mg/dL (8.4-10.2) 05/04/19 05:44 Magnesium 2.00 mg/dL (1.7-2.3) 05/03/19 04:31 0.30 mg/dL (0.1-1.2) 05/03/19 04:31 AST 14 units/L (5-40) 05/03/19 04:31 ALT 10 units/L (7-56) 05/03/19 04:31 53 units/L (35-129) 05/03/19 04:31 84 units/L (30-135) 04/29/19 14:11 CK-MB (CK-2) 2.1 ng/mL (0.0-4.0) 04/29/19 14:11 CK-MB (CK-2) Rel Index 2.5 (0-4) 04/29/19 14:11 < 0.010 ng/mL (0.00-0.029) 04/29/19 14:11 6.9 g/dL (6.3-8.2) 05/03/19 04:31 3.5 g/dL (3.9-5) L 05/03/19 04:31 1.0 % 05/03/19 04:31 Triglycerides 62 mg/dL (2-149) 05/01/19 04:13 Cholesterol 238 mg/dL (50-199) H 05/01/19 04:13 202 mg/dL (50-130) H 05/01/19 04:13 46 mg/dL (40-59) 05/01/19 04:13 5.17 % 05/01/19 04:13 TSH 1.380 mlU/mL (0.270-4.200) 04/29/19 19:04 Free T4 1.28 ng/dL (0.76-1.46) 04/29/19 19:04 Yellow (Yellow) 04/29/19 16:33 Clear (Clear) 04/29/19 16:33 6.0 (5.0-7.0) 04/29/19 16:33 Ur Specific [place] 1.008 (1.003-1.030) 04/29/19 16:33 <15 mg/dl mg/dL (Negative) 04/29/19 16:33 Neg mg/dL (Negative) 04/29/19 16:33 Neg mg/dL (Negative) 04/29/19 16:33 Sm (Negative) 04/29/19 16:33 Neg (Negative) 04/29/19 16:33 Ur Reducing Substances Not Reportable 04/29/19 16:33 Neg (Negative) 04/29/19 16:33 Not Reportable 04/29/19 16:33 < 2.0 mg/dL (<2.0) 04/29/19 16:33 Ur Leukocyte Esterase Mod (Negative) 04/29/19 16:33 16.0 /HPF (0.0-6.0) H 04/29/19 16:33 5.0 /HPF (0.0-6.0) 04/29/19 16:33 U Epithel Cells (Auto) 1.0 /HPF (0-13.0) 04/29/19 16:33 4+ /HPF (Negative) 04/29/19 16:33 Few /HPF 04/29/19 16:33 Presumptive negative 04/29/19 16:33 Presumptive negative 04/29/19 16:33 Ur Barbiturates Screen Presumptive negative 04/29/19 16:33 Ur Phencyclidine Scrn Presumptive negative 04/29/19 16:33 Ur Amphetamines Screen Presumptive negative 04/29/19 16:33 U Benzodiazepines Scrn Presumptive negative 04/29/19 16:33 Presumptive negative 04/29/19 16:33 U Marijuana (THC) Screen Presumptive negative 04/29/19 16:33 Disclamer 04/29/19 16:33 Active Medications - Current Medications Current Medications: Generic Name Dose Route Start Last Admin Trade Name Freq PRN Reason Stop Dose Admin Acetaminophen 650 mg 04/29/19 15:47 05/01/19 23:39 Tylenol PO 650 mg Q4H PRN Administration Pain, Mild (1-3) Albuterol 2.5 mg 04/29/19 15:47 Proventil IH Q3HRT PRN Shortness Of Breath Aspirin 325 mg 04/30/19 10:00 05/04/19 10:34 Aspirin PO 325 mg QDAY RUT Administration Atorvastatin Calcium 40 mg 04/29/19 22:00 05/03/19 21:51 Lipitor PO 40 mg QHS RUT Administration Bisacodyl 10 mg 04/29/19 15:47 Dulcolax ME QDAY PRN Constipation Dextrose 50 ml 04/29/19 17:08 D50w (25gm) Syringe IV PRN PRN Hypoglycemia Enoxaparin Sodium 40 mg 04/30/19 10:00 05/04/19 10:34 Lovenox SUB-Q 40 mg QDAY@1000 RUT Administration Ceftriaxone Sodium 1 gm in 50 mls @ 100 mls/hr 04/30/19 12:00 05/04/19 10:33 Rocephin/Ns 1 Gm/50 Ml IV 100 mls/hr Q24HR RUT Administration Protocol Sodium Chloride 500 mls @ 50 mls/hr 05/04/19 11:00 Nacl 0.9% 500 Ml IV 05/04/19 20:59 DIRECT RUT Insulin Human Lispro 0 unit 04/29/19 22:00 05/04/19 08:15 Humalog SUB-Q Not Given ACHS [facility] Protocol Losartan Potassium 25 mg 05/02/19 12:00 05/04/19 10:33 Cozaar PO 25 mg QDAY [facility] Administration Magnesium Hydroxide 30 ml 04/29/19 15:47 Milk Of Magnesia PO Q4H PRN Constipation Metoclopramide HCl 10 mg 04/29/19 15:47 Reglan PO Q6H PRN Nausea And Vomiting Ondansetron HCl 4 mg 04/29/19 15:47 Zofran IV Q8H PRN Nausea And Vomiting Promethazine HCl 25 mg 04/29/19 15:47 Phenergan ME Q6H PRN Nausea And Vomiting Sodium Chloride 10 ml 04/29/19 15:47 05/03/19 21:52 Sodium Chloride Flush Syringe 10 Ml IV 10 ml PRN PRN Administration LINE FLUSH
--- NOTE | 2019-05-04 14:15 | Progress Note ---
Assessment and Plan 68 Female admitted with acute Left MCA CVA and atrial fibrillation. Patient has a history of noncompliance, diabetes, hyperlipidemia, and hypertension. On admission the patient was noted to be in atrial fibrillation with a controlled ventricular rate of 76 bpm. During this hospitalization the patient has been in sinus rhythm and atrial fibrillation with slow ventricular rates. Additionally the patient has been noted during atrial fibrillation to have pauses of up to 3.2 seconds. These appear to be asymptomatic. Additionally when the patient is in sinus rhythm heart rate is in the 40s. The patient denies any chest pain, shortness of breath, dyspnea on exertion, or syncope. She reports today that she was walking around the hospital floor without any limitations. Review of the patient's telemetry and EKG suggest some conduction system disease however there is no evidence for permanent pacemaker at this time. Recommend oral anticoagulation when okayed by neurology. Additionally I recommend outpatient follow-up to evaluate for any progressive symptomatic bradycardia. Subjective Date of service: 05/04/19 Principal diagnosis: afib Interval history: Pt sitting up in bed without complaints. She denies cp, sob, curran, or syncope. She reports she was up walking around the floor today without limitations. Objective Vital Signs Temp Pulse Pulse Pulse Pulse Resp BP 05/04/19 10:33 62 130/92 05/04/19 10:00 50 L 62 62 62 18 05/04/19 08:31 98.1 F 44 L 18 05/04/19 04:27 98 F 40 L 18 05/04/19 00:20 98 F 50 L 18 05/03/19 22:00 50 L 05/03/19 19:09 98.4 F 49 L 18 108/54 05/03/19 15:59 98.0 F 18 137/102 BP Pulse Ox 05/04/19 10:33 05/04/19 10:00 99 05/04/19 08:31 144/86 97 05/04/19 04:27 142/72 05/04/19 00:20 140/78 99 05/03/19 22:00 05/03/19 19:09 97 05/03/19 15:59 - Physical Examination General: No Apparent Distress HEENT: Positive: PERRL Neck: Positive: neck supple Cardiac: Positive: Reg Rate and Rhythm Lungs: Positive: Normal Exam, clear to auscultation Neuro: Positive: Other (s/p CVA) Abdomen: Positive: Unremarkable, Active Bowel Sounds. Negative: Tender /Rectal: Other (Deferred) Skin: Positive: Clear Musculoskeletal: No Pain Extremities: Present: normal, warm. Absent: edema - Labs and Meds Coagulation 05/04/19 Range/Units 05:44 PT 15.0 H (12.2-14.9) Sec. INR 1.21 H (0.87-1.13) CBC 05/04/19 Range/Units 05:44 WBC 4.6 (4.5-11.0) K/mm3 RBC 4.45 (3.65-5.03) M/mm3 Hgb 11.9 (10.1-14.3) gm/dl Hct 37.5 (30.3-42.9) % Plt Count 216 (140-440) K/mm3 Lymph # Roll Examiner [place] # Roll Examiner Eos # Roll Examiner Baso # Roll Examiner Comprehensive Metabolic Panel 05/04/19 Range/Units 05:44 Sodium 140 (137-145) mmol/L Potassium 4.1 (3.6-5.0) mmol/L Chloride 105.9 (98-107) mmol/L Carbon Dioxide 23 (22-30) mmol/L BUN 9 (7-17) mg/dL Creatinine 1.0 (0.7-1.2) mg/dL Glucose 83 (65-100) mg/dL Calcium 9.1 (8.4-10.2) mg/dL - Imaging and Cardiology EKG: report reviewed (Atrial fibrillation with LVH) Stress echo: report reviewed (The study was of suboptimal quality. EF noted to be 36%. Cannot rule out area of inferoapical and possibly lateral ischemia. May benefit from a cardiac catheterization prior to discharge to definitively evaluate.) Echo: report reviewed (moderate LV dysfunction EF 35-40% severe left atrial enlargement negative bubble study mild right ventricle dysfunction)
[2019-05-04] MEDS: SODIUM CHLORIDE FLUSH SYRINGE 10 ML IV PRN (22:27)
[2019-05-05] MEDS ORDERED: HEPARIN/NS 5000 UNIT/500ML(CATH LAB) 1,000 ML IR ONE (10:01)
[2019-05-05] MEDS ORDERED: HEPARIN 10,000 UNITS/10 ML ONE (10:01)
[2019-05-05] MEDS ORDERED: XYLOCAINE 2% INFILTRATI ONE (10:02)
[2019-05-05] MEDS ORDERED: NITROGLYCERIN SYRINGE 3 ML ONE (10:02)
[2019-05-05] MEDS ORDERED: CALAN ONE (10:02)
[2019-05-05] MEDS ORDERED: VERSED ONE (10:19)
[2019-05-05] MEDS ORDERED: SUBLIMAZE ONE (10:19)
[2019-05-05] MEDS ORDERED: NACL 0.9% 500 ML 500 ML ONE (10:38)
[2019-05-05] MEDS ORDERED: NACL 0.9% 500 ML 500 ML IV SCH (11:00)
[2019-05-05 12:39] VITALS: BP 119/49
[2019-05-05] MEDS: ROCEPHIN/NS 1 GM/50 ML 1 GM/50 ML BAG IV SCH (12:43)
[2019-05-05] MEDS: COZAAR PO SCH (13:03)
[2019-05-05] MEDS: LOVENOX SUB-Q SCH (13:05)
[2019-05-05] MEDS: ASPIRIN PO SCH (13:05)
--- NOTE | 2019-05-05 13:41 | Progress Note ---
Assessment and Plan The patient is stable from a cardiac standpoint. We recommend outpatient follow-up to further evaluate for symptomatic bradycardia. She may be discharged from our perspective when post-PCI orders are completed and site is free from complications. Follow up with Dr. Syed in our office within one week. Call for an appointment. - Patient Problems (1) CVA (cerebral vascular accident) Current Visit: Yes Status: Acute Qualifiers: Precerebral and cerebral artery: middle cerebral artery Laterality of affected vessel: left (2) Atrial fibrillation and flutter Current Visit: Yes Status: Acute (3) Bradycardia Current Visit: Yes Status: Acute (4) Diabetes Current Visit: Yes Status: Chronic (5) H/O: hypertension Current Visit: Yes Status: Acute (6) Hyperlipidemia Current Visit: Yes Status: Chronic Subjective Date of service: 05/05/19 Principal diagnosis: afib Interval history: Patient is s/p left heart catheterization. Test revealed clean coronaries. She is lying in bed in NAD with right radial TR band in place. Objective Last Vital Signs Temp 98.1 F 05/05/19 11:57 Pulse 40 L 05/05/19 13:03 Resp 18 05/05/19 11:57 BP 119/49 05/05/19 13:03 Pulse Ox 99 05/05/19 11:57 - Physical Examination General: No Apparent Distress HEENT: Positive: PERRL Neck: Positive: neck supple Cardiac: Positive: irregularly irregular Lungs: Positive: Normal Exam Neuro: Positive: Other (Some expressive aphasia. ) Abdomen: Positive: Unremarkable, Active Bowel Sounds. Negative: Tender /Rectal: Other (Deferred) Skin: Positive: Clear Incision: Cardiac Cath Site (Right radial TR band in place - c/d/i. ) Musculoskeletal: No Pain Extremities: Present: normal, warm. Absent: edema - Imaging and Cardiology EKG: report reviewed (Atrial fibrillation with LVH) Stress echo: report reviewed (The study was of suboptimal quality. EF noted to be 36%. Cannot rule out area of inferoapical and possibly lateral ischemia. May benefit from a cardiac catheterization prior to discharge to definitively evaluate.) Echo: report reviewed (moderate LV dysfunction EF 35-40% severe left atrial enlargement negative bubble study mild right ventricle dysfunction) Cardiac cath: report reviewed (05/05/19 - clean coronaries) - Telemetry EKG Rhythm: Atrial Fibrillation
--- NOTE | 2019-05-05 14:06 | Cardiac Catherization Report ---
The patient is a 68-year-old -[place] female with history of paroxysmal atrial fibrillation, was admitted to [facility] with word finding difficulty of 3 days' duration. The patient was diagnosed to have acute ischemic stroke in the left middle cerebral artery territory. Etiology of the stroke was not clear. The patient's echocardiogram showed ejection fraction to be around 35-40%. Nuclear imaging showed possible lateral ischemia. Hence, the patient is scheduled for cardiac catheterization to rule out underlying coronary artery disease. The patient is aware of the procedure, potential complications and alternatives of therapy available. DESCRIPTION OF PROCEDURE: The patient was brought to the catheterization laboratory in a fasting condition. The patient was evaluated for moderate sedation and she was felt to be appropriate candidate and received IV Versed and fentanyl around 11:24 a.m. Subsequently, the patient was prepared in a standard fashion and right radial artery puncture was made using 21-gauge arterial puncture needle. Subsequently, 5-[place] slender sheath was introduced. The patient received 5 mg of intra-arterial verapamil and 3000 units of intravenous heparin. Subsequently, using 5-[place] multipurpose catheter, left ventriculogram was performed in ROSENBERG projection using hand injection followed by angiograms of the left coronary artery and right coronary artery in multiple views. At the end of the procedure, catheter and sheath were removed and good hemostasis was achieved with radial band. Throughout the procedure, the patient was monitored for any side effects from moderate sedation. The patient was monitored with pulse oximetry, EKG and hemodynamic monitoring. Moderate sedation monitoring ended at around 11:36 a.m. The patient was transferred to the room in stable condition. The patient is communicating normally and breathing normally at the end of the procedure. Following findings were noted, aortic pressure 156/62, left ventricular pressure 157/15. No gradient across the aortic valve. Estimated ejection fraction 35-40%. Next, left ventriculogram done in ROSEN[place]G projection showed normal-sized left ventricle with diffuse hypokinesis, moderate. It was felt the ejection fraction was estimated to be 35-40%. Mitral regurgitation could not be evaluated because of limited amount of dye injected. Next, his right coronary artery arises normally from right coronary cusp, dominant vessel and angiographically smooth and normal. Next, his left coronary artery arises normally from left coronary cusp. Left main, LAD, which curves around the apex and its branches and circumflex artery and its branch are angiographically smooth and normal. FINAL IMPRESSION: Moderate LV dysfunction, ejection fraction of 35-40% with normal coronary anatomy. The patient tolerated the procedure well. No hematoma noted in the right radial access site. The patient will be continued on risk factor modification and medical therapy for her LV dysfunction. The patient also has paroxysmal atrial fibrillation and is in sinus rhythm during the procedure. JOB# [id number] LEENA/NTS
[2019-05-05] MEDS ORDERED: NACL 0.9% 1000 ML 1,000 ML IV SCH (15:00)
--- NOTE | 2019-05-05 17:02 | Discharge Summary ---
Providers - Providers Date of Admission: 04/29/19 15:47 Date of discharge: 05/05/19 Attending physician: ZENOBIA GUERRERO 04/29/19 15:47 Occupational Therapy Evaluate and Treat [CONS] Routine Comment: Reason For Exam: Neuro deficits Physical Therapy Evaluation and Treat [CONS] Routine Comment: Reason For Exam: Neuro deficits 04/29/19 17:09 Consult to Physician [CONS] Routine Comment: Consulting Provider: KANE ARCE Physician Instructions: Reason For Exam: CVA 05/01/19 11:12 Consult to Cardiology [CONS] Routine Consulting Provider: KATHY LEDEZMA Reason For Exam: arrythmia and cva 05/03/19 15:43 Speech Therapy Evaluation and Treat [CONS] Routine Reason For Exam: Slurred speech 05/03/19 15:54 Speech Therapy Evaluation and Treat [CONS] Routine Reason For Exam: dysphagia/aphasia 05/05/19 13:41 Consult to Cardiac Rehabilitation [CONS] Routine Reason For Exam: Cardiac Rehab Evaluation Primary care physician: [employer] DIRECTOR Hospitalization Condition: Stable Hospital course: Patient is a 68 yo woman with a history of CAD s/p SD who presented to [facility] ED on 04/29/19 with confusion and dysarthria. Pt history taken from family members who are at bedside during exam and interview. per family, the patient has experienced confusion and slurred speech, and difficulty swallowing over the past 2 days with persistent symptoms over the same time frame. Pt transported to [facility] via private vehicle. Pt found to have neurologic deficit consistent with CVA as well as Encephalopathy, and Hyponatremia. A code stroke was called and teleneurology consulted. Pt is outside therapeutic window for TPA. Pt initiated on CVA protocol and admitted to telemetry. Neurology consulted in ED. Nuclear stress test reviewed. The study was of suboptimal quality. EF noted to be 36%. Cannot rule out area of inferoapical and possibly lateral ischemia. Cardiac catheterization done on 05/05/19 and not shents placed. * MRI brain without contrast IMPRESSION: 1. There are patchy areas of acute infarction within the left MCA distribution as detailed above * 04/29/19 2D ECHO conclusions: Global LVSF is moderately decreased, estimated EF 35-40%, left atrium is severely dilated, RVSF is mildly reduced, mild MR, mild TR, RVSP calculated at 31mmHg, no ASD * Carotid ultrasound reveals insignificant >50% bilateral stenosis Acute ischemic stroke/CVA (cerebral vascular accident): treat with asa/statins Cardiomyopathy, EF 35-40%: ischemic evaluation with [facility] pending d/w Dr. Ashley trevino noticed on telemetry and EKG. Cardiology consulted, input noted. Also, Neurology consulted and he recommended starting Eliquis in 10-12 days from symptoms onset, as to decrease risk of hemorrhagic conversion of infarct. Chronic systolic heart failure; Optimized cardiac meds, stress test reviewec Bradycardia: EP consulted, patient is persistently bradycardic, may need PM Acute metabolic Encephalopathy resolved Hyponatremia syndrome treated with IVF resuscitation therapy, resolved, DVT prophylaxis reviewed: on sq lovenox Disposition: continue inpatient care, [facility] tomorrow and possible d/c home afterwards Disposition: DC/TX-06 HOME UNDER HOME [facility] Time spent for discharge: 37 minutes Core Measure Documentation - Palliative Care Palliative Care/ Comfort Measures: Not Applicable - Core Measures Any of the following diagnoses?: stroke - VTE Discharge Requirements Deep Vein Thrombosis/Pulmonary Embolism Present on Admission: No Has pt received <5 days of overlap therapy or INR<2.0: No Anticoagulant overlap therapy prescribed at discharge: No Contraindication No Overlap Therapy order at DC: Not Indicated - Stroke Discharge Requirements Statin for LDL = or >70 mg/dl on DC: Yes Anticoag for atrial fib/atrial flutter: Not Applicable Reason for no anticoag for AF/F on DC: Not Indicated (Not indicated due to acute stroke. Should start next week after seeing Community Engagement Representative) Antithrombotic for ischemic stroke: Yes Exam - Physical Exam Narrative exam: Gen: thin, NAD, Awake, Alert, Orientated HEENT: NCAT, EOMI, PERRL, OP Clear Neck: supple, no adenopathy, no thyromegaly, no JVD CVS/Heart: mackenzie, normal S1S2, pulses present bilaterally Chest/Lungs: CTA B, Symmetrical chest expansion, good air entry bilaterally GI/Abdomen: soft, NTND, good bowel sounds, no guarding or rebound /Bladder: no suprapubic tenderness, no CVA or paraspinal tenderness Extermity/Skin: no c/c/e, no obvious rash MSK: FROM x 4 Neuro: CN 2-12 grossly intact, no new focal deficits Psych: calm - Constitutional Vitals: Temp Pulse Resp BP Pulse Ox 98.1 F 40 L 18 119/49 99 05/05/19 11:57 05/05/19 13:03 05/05/19 11:57 05/05/19 13:03 05/05/19 11:57 Plan Activity: other (no strenous activity, including driving unless cleared by Cardiology. No heavy lifting or sweating) Diet: low salt Additional Instructions: Avoid constipation at all cost; Use over the counter Miralax if no bowel movement in 2 days Care Plan Goals: Atrial Fibrillation Plan of Treatment: see Community Engagement Representative to Start Eliquis next Week Follow up with: PRIMARY CARE, [Primary Care Provider] - 7 Days FELICITY BLAKE MD [Staff Physician] - 7 Days Prescriptions: AtorvaSTATin [Lipitor] 40 mg PO QHS #40 tablet Aspirin 325 mg PO QDAY #30 tablet Losartan [Cozaar] 25 mg PO QDAY #30 tablet
== END 2019-05-05 18:40 | disposition home or self-care (01) | DRG 64 ==
LOC: ED 13:55 → 4A 15:47
PROVIDERS: ADMIT Internal Medicine; ATTEND Internal Medicine
PROC: 4A023N7 Measurement of Cardiac Sampling and Pressure, Left Heart, Percutaneous Approach (ICD-10-PCS; principal; 2019-05-05)
PROC: B2151ZZ Fluoroscopy of Left Heart using Low Osmolar Contrast (ICD-10-PCS; 2019-05-05)
PROC: B2111ZZ Fluoroscopy of Multiple Coronary Arteries using Low Osmolar Contrast (ICD-10-PCS; 2019-05-05)
DX: I63.81 Other cerebral infarction due to occlusion or stenosis of small artery (principal); G93.41 Metabolic encephalopathy; E87.1 Hypo-osmolality and hyponatremia; I50.22 Chronic systolic (congestive) heart failure; I48.92 Unspecified atrial flutter; I42.9 Cardiomyopathy, unspecified; D68.69 Other thrombophilia; E78.5 Hyperlipidemia, unspecified; I48.0 Paroxysmal atrial fibrillation; R29.810 Facial weakness; E11.9 Type 2 diabetes mellitus without complications; I11.0 Hypertensive heart disease with heart failure; I25.2 Old myocardial infarction; R47.1 Dysarthria and anarthria
CPT/HCPCS: 36415; 70450; 70544; 70551; 78452; 80048; 80053; 80061; 80307; 81001; 82550; 82553; 82962; 83036; 83735; 84439; 84443; 84484; 85007; 85025; 85610; 85670; 85730; 87076; 87086; 87186; 93005; 93010; 93017; 93306; 93458; 93880; 94640; 94760; G0378; A9270-GY; A9502; C1894; J0696; J1644; J1650; J1815; J2250; J2785; J3010; J7030; J7040; Q9967

== ENCOUNTER 2019-05-18 00:24 | Emergency (ER) | payer OTHER ==
[2019-05-18 01:03] LABS: Hematocrit 41.8 % (30.3-42.9); Hemoglobin 13.3 gm/dl (10.1-14.3); Mean Corpuscular HGB Conc 32 % (30-34); Mean Corpuscular Volume 84 fl (79-97); Platelet Count 208 K/mm3 (140-440); Red Blood Count 4.99 M/mm3 (3.65-5.03); Red Cell Distribution Width 14.3 % (13.2-15.2)
[2019-05-18 01:26] LABS: Alanine Aminotransferase 10 units/L (7-56); Albumin 4.5 g/dL (3.9-5); BUN/Creatinine Ratio 16; Blood Urea Nitrogen 18 mg/dL (7-17); Calcium 10.1 mg/dL (8.4-10.2); Hemolysis Index 0
[2019-05-18] MEDS ORDERED: ZOFRAN IV ONE (02:56)
[2019-05-18] MEDS ORDERED: MORPHINE IV ONE (02:56)
--- NOTE | 2019-05-18 02:56 | Emergency Department Report ---
ED Abdominal Pain HPI - General Chief Complaint: Abdominal Pain Stated Complaint: LT SIDE PAIN/ STOMACH PAIN Time Seen by Provider: 05/18/19 02:24 Source: patient, family Mode of arrival: Ambulatory Limitations: No Limitations - History of Present Illness Initial Comments: 68 yo F presents to ED with umbilical abdominal pain since yesterday afternoon. Pt has hx of umbilical hernia. Denies N/V, fever. MD Complaint: abdominal pain -: This afternoon Location: periumbilical Radiation: none Migration to: no migration Severity: moderate Quality: sharp Improves With: nothing Worsens With: other (palpation) Context: other (hx of umbilical hernia) Associated Symptoms: denies: nausea, vomiting, diarrhea - Related Data Previous Rx's Medication Instructions Recorded Last Taken Type Acetaminophen [Acetaminophen TAB] 2 tab PO Q4H PRN #15 tablet 05/05/19 Unknown Rx Aspirin 325 mg PO QDAY #30 tablet 05/05/19 Unknown Rx AtorvaSTATin [Lipitor] 40 mg PO QHS #40 tablet 05/05/19 Unknown Rx Losartan [Cozaar] 25 mg PO QDAY #30 tablet 05/05/19 Unknown Rx traMADol [Ultram] 50 mg PO Q6HR PRN #7 tablet 05/18/19 Unknown Rx Allergies Allergy/AdvReac Type Severity Reaction Status Date / Time No Known Allergies Allergy Unverified 04/29/19 13:57 ED Review of Systems ROS: Stated complaint: LT SIDE PAIN/ STOMACH PAIN Other details as noted in HPI Comment: All other systems reviewed and negative Constitutional: denies: chills, fever Gastrointestinal: abdominal pain. denies: nausea, vomiting, diarrhea ED Past Medical Hx - Past Medical History Previous Medical History?: Yes Hx Heart Attack/AMI: Yes Additional medical history: GALL STONES - Surgical History Past Surgical History?: No - Social History Smoking Status: Never Smoker Substance Use Type: None - Medications Home Medications: Home Medications Medication Instructions Recorded Confirmed Last Taken Type Acetaminophen [Acetaminophen TAB] 2 tab PO Q4H PRN #15 tablet 05/05/19 Unknown Rx Aspirin 325 mg PO QDAY #30 tablet 05/05/19 Unknown Rx AtorvaSTATin [Lipitor] 40 mg PO QHS #40 tablet 05/05/19 Unknown Rx Losartan [Cozaar] 25 mg PO QDAY #30 tablet 05/05/19 Unknown Rx traMADol [Ultram] 50 mg PO Q6HR PRN #7 tablet 05/18/19 Unknown Rx ED Physical Exam - General Limitations: No Limitations General appearance: alert, in no apparent distress - Head Head exam: Present: atraumatic, normocephalic - Eye Eye exam: Present: normal appearance, PERRL, EOMI - ENT ENT exam: Present: mucous membranes moist - Neck Neck exam: Present: normal inspection - Respiratory Respiratory exam: Present: normal lung sounds bilaterally. Absent: respiratory distress - Cardiovascular Cardiovascular Exam: Present: normal rhythm, irregular rhythm - GI/Abdominal GI/Abdominal exam: Present: soft, tenderness (umbilical), hernia (small umbilical). Absent: distended - Extremities Exam Extremities exam: Present: normal inspection - Neurological Exam Neurological exam: Present: alert, oriented X3 - Psychiatric Psychiatric exam: Present: normal affect, normal mood - Skin Skin exam: Present: warm, dry, intact, normal color ED Course Vital Signs 05/18/19 05/18/19 05/18/19 00:32 02:10 03:00 Temperature 98.4 F 98.2 F Pulse Rate 59 L 71 90 Respiratory 12 23 21 Rate Blood Pressure 198/107 Blood Pressure 173/94 164/96 [Left] O2 Sat by Pulse 98 98 98 Oximetry 05/18/19 05/18/19 05/18/19 03:47 04:00 05:10 Temperature Pulse Rate 72 76 Respiratory 18 19 15 Rate Blood Pressure Blood Pressure 156/102 157/87 [Left] O2 Sat by Pulse 97 96 Oximetry ED Medical Decision Making - Lab Data Result diagrams: 05/18/19 00:37 05/18/19 00:37 - Radiology Data Radiology results: report reviewed, image reviewed - Medical Decision Making - umbilical hernia containing fat only - recent admission for CVA, found to have Afib - renal infarcts seen on CT, possibly due to emboli from her Afib, renal function normal, no flank pain present - currently on Eliquis per chart - pt advised to f/u with PCP Critical care attestation.: If time is entered above; I have spent that time in minutes in the direct care of this critically ill patient, excluding procedure time. ED Disposition Clinical Impression: Umbilical hernia Disposition: DC-01 TO HOME OR SELFCARE Is pt being admited?: No Condition: Stable Instructions: Umbilical Hernia (ED) Prescriptions: traMADol [Ultram] 50 mg PO Q6HR PRN #7 tablet PRN Reason: Pain Referrals: PRIMARY CARE, [Primary Care Provider] - 3-5 Days BELINDA MENDEZ MD [Staff Physician] - 3-5 Days Time of Disposition: 05:24
--- NOTE | 2019-05-18 04:24 | Cat Scan Report ---
CT abdomen pelvis w con INDICATION: periumbilical abd pain; umbilical hernia. TECHNIQUE: All CT scans at this location are performed using the following dose modulation technique: Automated exposure control. CONTRAST: Omnipaque 300, 100 cc IV injection. COMPARISON: None available. CT abdomen: Evaluation of the parenchymal organs demonstrates passive congestion of the liver. There are bilateral renal cysts. In addition, there are multifocal infarcts at the left kidney greatest at the upper pole anteriorly. The remaining parenchymal organs are unremarkable. Negative for abdominal mass, fluid or inflammation. The bowel is not dilated or thickened. A fat-cont aining ventral hernia is small. CT PELVIS: Negative for mass, fluid collection or inflammation. IMPRESSION: 1. Multiple infarcts left kidney appear acute. 2. Passive congestion of the liver. 3. Small fat-containing ventral hernia just above the umbilicus. Signer Name: Alphonse Layton MD Signed: 05/18/2019 4:19 AM Workstation Name: [id number]
[2019-05-18 04:29] LABS: Bacteria,Urine 1+ /HPF (Negative); Bilirubin,Urine NEG (Negative); Blood,Urine NEG (Negative); Color,Urine Yellow (Yellow); Mucus,Urine FEW /HPF; Protein,Urine <15 mg/dL mg/dL (Negative); Urobilinogen,Urine < 2.0 mg/dL (<2.0)
[2019-05-18 05:18] VITALS: BP 157/87
[2019-05-18 06:39] LABS: Anisocytosis 1+; Basophils % (Manual) 0 % (0.0-1.8); Total Cells Counted 100
[2019-05-18 06:40] LABS: Platelet Estimate Consistent w Auto
== END 2019-05-18 05:40 | disposition home or self-care (01) ==
LOC: ED 00:24
DX: K42.9 Umbilical hernia without obstruction or gangrene (principal); Z79.82 Long term (current) use of aspirin; Z79.899 Other long term (current) drug therapy
CPT/HCPCS: 36415; 74177; 80053; 81001; 85007; 85025; 96374; 96375; 99284; J2270; J2405; Q9967

== ENCOUNTER 2019-05-18 21:34 | Emergency (ER) | payer OTHER ==
[2019-05-18 21:49] VITALS: BP 166/88
--- NOTE | 2019-05-18 21:51 | Event Note ---
ED Screening Note Date of service: 05/18/19 Time: 21:47 ED Screening Note: 68 y o female presents with umbilical abd pain x 1 day admits v, denies diar This initial assessment/diagnostic orders/clinical plan/treatment(s) is/are subject to change based on patients health status, clinical progression and re- assessment by fellow clinical providers in the ED. Further treatment and workup at subsequent clinical providers discretion. Patient/guardian urged not to elope from the ED as their condition may be serious if not clinically assessed and managed. Initial orders include:
[2019-05-18 22:06] LABS: Hematocrit 42.1 % (30.3-42.9); Hemoglobin 13.5 gm/dl (10.1-14.3); Mean Corpuscular HGB Conc 32 % (30-34); Mean Corpuscular Volume 84 fl (79-97); Platelet Count 204 K/mm3 (140-440); Red Blood Count 5.03 M/mm3 (3.65-5.03); Red Cell Distribution Width 14.5 % (13.2-15.2)
[2019-05-18 22:29] LABS: Alanine Aminotransferase 44 units/L (7-56); Albumin 4.3 g/dL (3.9-5); BUN/Creatinine Ratio 14; Blood Urea Nitrogen 14 mg/dL (7-17); Hemolysis Index 9
[2019-05-18 22:45] LABS: Basophils % (Auto) 0.2 % (0.0-1.8); Eosinophils % (Auto) 0.1 % (0.0-4.3); Lymphocytes # (Auto) 1.1 K/mm3 (1.2-5.4); Lymphocytes % (Auto) 11.5 % (13.4-35.0); Monocytes # (Auto) 0.9 K/mm3 (0.0-0.8)
[2019-05-19] MEDS ORDERED: ZOFRAN IM ONE (00:20)
[2019-05-19] MEDS ORDERED: ZOFRAN ONE (00:22)
--- NOTE | 2019-05-19 00:29 | Emergency Department Report ---
ED N/V/D HPI - General Chief complaint: Nausea/Vomiting/Diarrhea Stated complaint: EMESIS Time Seen by Provider: 05/18/19 21:47 Source: patient Mode of arrival: Ambulatory Limitations: No Limitations - History of Present Illness Initial comments: Patient is 68-year-old female, nontoxic, with history of atrial fibrillation on Elliquis. Patient was seen here yesterday for abdominal pain. Patient had a CT abdomen and pelvis with IV contrast which showed a ventral hernia with no obstruction or incarceration or strangulation. Patient also found to have a multi-infarcts in the kidney. Patient presented to the ER today complaining of nausea and vomiting. Patient stated that nausea and vomiting started after she took Ultram. She denied any abdominal pain. She also denied any fever or chills. MD complaint: nausea, vomiting -: This afternoon Description of Vomiting: food contents Associated Abdominal Pain: No - Related Data Previous Rx's Medication Instructions Recorded Last Taken Type Acetaminophen [Acetaminophen TAB] 2 tab PO Q4H PRN #15 tablet 05/05/19 Unknown Rx Aspirin 325 mg PO QDAY #30 tablet 05/05/19 Unknown Rx AtorvaSTATin [Lipitor] 40 mg PO QHS #40 tablet 05/05/19 Unknown Rx Losartan [Cozaar] 25 mg PO QDAY #30 tablet 05/05/19 Unknown Rx traMADol [Ultram] 50 mg PO Q6HR PRN #7 tablet 05/18/19 Unknown Rx Allergies Allergy/AdvReac Type Severity Reaction Status Date / Time No Known Allergies Allergy Verified 05/18/19 21:37 ED Review of Systems ROS: Stated complaint: EMESIS Other details as noted in HPI Comment: All other systems reviewed and negative Constitutional: denies: chills, fever Respiratory: denies: cough, shortness of breath, SOB with exertion Cardiovascular: denies: chest pain, palpitations Gastrointestinal: nausea, vomiting. denies: abdominal pain, diarrhea, constipation, hematemesis, melena, hematochezia Musculoskeletal: denies: back pain Neurological: denies: headache, weakness, numbness, paresthesias, confusion, abnormal gait ED Past Medical Hx - Past Medical History Previous Medical History?: Yes Hx Hypertension: Yes Hx Heart Attack/AMI: Yes Additional medical history: GALL STONES - Surgical History Past Surgical History?: Yes Additional Surgical History: dental sx - Social History Smoking Status: Never Smoker - Medications Home Medications: Home Medications Medication Instructions Recorded Confirmed Last Taken Type Acetaminophen [Acetaminophen TAB] 2 tab PO Q4H PRN #15 tablet 05/05/19 Unknown Rx Aspirin 325 mg PO QDAY #30 tablet 05/05/19 Unknown Rx AtorvaSTATin [Lipitor] 40 mg PO QHS #40 tablet 05/05/19 Unknown Rx Losartan [Cozaar] 25 mg PO QDAY #30 tablet 05/05/19 Unknown Rx traMADol [Ultram] 50 mg PO Q6HR PRN #7 tablet 05/18/19 Unknown Rx ED Physical Exam - General Limitations: No Limitations General appearance: alert, in no apparent distress - Head Head exam: Present: atraumatic, normocephalic, normal inspection - Eye Eye exam: Present: normal appearance, PERRL - ENT ENT exam: Present: normal exam, normal orophraynx, mucous membranes moist - Neck Neck exam: Present: normal inspection, full ROM. Absent: tenderness, meningismus, lymphadenopathy, thyromegaly - Respiratory Respiratory exam: Present: normal lung sounds bilaterally - Cardiovascular Cardiovascular Exam: Present: regular rate, normal rhythm, normal heart sounds - GI/Abdominal GI/Abdominal exam: Present: soft, normal bowel sounds. Absent: distended, tenderness, guarding, rebound, rigid, organomegaly, mass, bruit, pulsatile mass, hernia - Extremities Exam Extremities exam: Present: normal inspection, full ROM, normal capillary refill. Absent: tenderness, pedal edema, joint swelling, calf tenderness - Back Exam Back exam: Present: normal inspection, full ROM. Absent: CVA tenderness (R), CVA tenderness (L) - Neurological Exam Neurological exam: Present: alert, oriented X3, CN II-XII intact, normal gait, reflexes normal - Psychiatric Psychiatric exam: Present: normal mood - Skin Skin exam: Present: warm, intact, normal color ED Course Vital Signs 05/18/19 21:39 Temperature 98.2 F Pulse Rate 42 L Respiratory 12 Rate Blood Pressure 166/88 O2 Sat by Pulse 100 Oximetry ED Medical Decision Making - Lab Data Result diagrams: 05/18/19 21:54 05/18/19 21:54 - Medical Decision Making Patient is 68-year-old female, nontoxic, with history of atrial fibrillation on Elliquis. Patient was seen here yesterday for abdominal pain. Patient had a CT abdomen and pelvis with IV contrast which showed a ventral hernia with no obstruction or incarceration or strangulation. Patient also found to have a multi-infarcts in the kidney. Patient presented to the ER today complaining of nausea and vomiting. Patient stated that nausea and vomiting started after she took Ultram. She denied any abdominal pain. She also denied any fever or chills. Patient labs reviewed and is unremarkable. No change in her renal profile. I believe the patient's symptom is most likely related to side effects of tramadol. Patient given Zofran 4 mg IM and she also given a prescription for Zofran. Patient advised to follow-up with her primary care physician in the n ext 2-3 days and to return to the ER if symptoms have not improved. Critical care attestation.: If time is entered above; I have spent that time in minutes in the direct care of this critically ill patient, excluding procedure time. ED Disposition Clinical Impression: Nausea and vomiting Disposition: DC-01 TO HOME OR SELFCARE Is pt being admited?: No Condition: Stable Instructions: Acute Nausea and Vomiting (ED) Referrals: PRIMARY CARE, [Primary Care Provider] - 3-5 Days
[2019-05-19 01:48] LABS: Anisocytosis 1+; Basophils % (Manual) 0 % (0.0-1.8); Eosinophils % (Manual) 0 % (0.0-4.3); Platelet Estimate Consistent w Auto; Total Cells Counted 100
== END 2019-05-19 01:00 | disposition home or self-care (01) ==
LOC: ED 21:34
DX: R11.2 Nausea with vomiting, unspecified (principal); R10.33 Periumbilical pain; I10 Essential (primary) hypertension; I25.2 Old myocardial infarction; Z98.890 Other specified postprocedural states; Z79.899 Other long term (current) drug therapy; Z79.82 Long term (current) use of aspirin
CPT/HCPCS: 36415; 80053; 83690; 85007; 85025; 96372; 99283; J2405

== ENCOUNTER 2019-05-21 20:38 | Emergency (ER) | payer OTHER ==
[2019-05-21 21:32] LABS: Basophils % (Auto) 0.4 % (0.0-1.8); Hematocrit 42.8 % (30.3-42.9); Lymphocytes # (Auto) 1.3 K/mm3 (1.2-5.4); Lymphocytes % (Auto) 17.8 % (13.4-35.0); Mean Corpuscular HGB Conc 33 % (30-34); Mean Corpuscular Volume 83 fl (79-97); Monocytes # (Auto) 0.5 K/mm3 (0.0-0.8); Monocytes % (Auto) 6.6 % (0.0-7.3); Platelet Count 203 K/mm3 (140-440); Red Blood Count 5.14 M/mm3 (3.65-5.03); Red Cell Distribution Width 13.8 % (13.2-15.2)
[2019-05-21 21:44] LABS: Alanine Aminotransferase 26 units/L (7-56); Albumin 3.7 g/dL (3.9-5); BUN/Creatinine Ratio 25; Blood Urea Nitrogen 27 mg/dL (7-17); Calcium 9.5 mg/dL (8.4-10.2); Hemolysis Index 3
--- NOTE | 2019-05-21 21:59 | XRay Report ---
Complete abdominal series 3 views INDICATION / CLINICAL INFORMATION: constipation. Abdominal pain COMPARISON: None available. FINDINGS: Chest: Mild cardiomegaly. Lungs are grossly clear. BOWEL GAS PATTERN: No significant abnormality. FREE AIR / EXTRALUMINAL GAS: None seen. ADDITIONAL FINDINGS: No significant additional findings. IMPRESSION: Mild stool burden identified throughout the colon. Gaseous distention of the large bowel which could be seen with ileus. No high-grade obstruction present. Cardiomegaly. Signer Name: Greg Morales MD Signed: 05/21/2019 9:55 PM Workstation Name: [id number]
[2019-05-21] MEDS ORDERED: ACTIDOSE-AQUA PO ONE (22:32)
[2019-05-21] MEDS ORDERED: NACL 0.9% 1000 ML 1,000 ML IV ONE (22:38)
[2019-05-22] MEDS ORDERED: BENTYL IM ONE (01:02)
--- NOTE | 2019-05-22 01:14 | Emergency Department Report ---
ED General Adult HPI - General Chief complaint: Rectal Pain Stated complaint: PAIN,CONSTIPATION Time Seen by Provider: 05/21/19 22:27 Source: patient, family Mode of arrival: Ambulatory Limitations: No Limitations - History of Present Illness Initial comments: Patient is a 68-year-old female with a past medical history of hypertension and stroke approximately 2 weeks ago who is complaining of one week of constipation. Patient has been less active which is likely the reason for her constipation. Patient denies nausea vomiting. Patient has rectal pain that is intermittent. Patient feels that she needs to have back and was unable. Patient states several laxatives Severity scale (0 -10): 10 - Related Data Previous Rx's Medication Instructions Recorded Last Taken Type Acetaminophen [Acetaminophen TAB] 2 tab PO Q4H PRN #15 tablet 05/05/19 Unknown Rx Aspirin 325 mg PO QDAY #30 tablet 05/05/19 Unknown Rx AtorvaSTATin [Lipitor] 40 mg PO QHS #40 tablet 05/05/19 Unknown Rx Losartan [Cozaar] 25 mg PO QDAY #30 tablet 05/05/19 Unknown Rx traMADol [Ultram] 50 mg PO Q6HR PRN #7 tablet 05/18/19 Unknown Rx Ondansetron [Zofran Odt] 4 mg PO Q8HR PRN #14 tab.rapdis 05/19/19 Unknown Rx Dicyclomine [Bentyl] 10 mg PO QID #10 capsule 05/22/19 Unknown Rx Docusate Sodium [Colace] 100 mg PO BID #60 capsule 05/22/19 Unknown Rx Mineral Oil [Fleet Mineral Oil] [address] DAILY #3 bottle 05/22/19 Unknown Rx Allergies Allergy/AdvReac Type Severity Reaction Status Date / Time No Known Allergies Allergy Verified 05/18/19 21:37 ED Review of Systems ROS: Stated complaint: PAIN,CONSTIPATION Other details as noted in HPI Comment: All other systems reviewed and negative ED Past Medical Hx - Past Medical History Previous Medical History?: Yes Hx Hypertension: Yes Hx CVA: Yes ('2 weeks ago') Hx Heart Attack/AMI: Yes Additional medical history: GALL STONES - Surgical History Past Surgical History?: Yes Additional Surgical History: dental sx - Social History Smoking Status: Never Smoker - Medications Home Medications: Home Medications Medication Instructions Recorded Confirmed Last Taken Type Acetaminophen [Acetaminophen TAB] 2 tab PO Q4H PRN #15 tablet 05/05/19 Unknown Rx Aspirin 325 mg PO QDAY #30 tablet 05/05/19 Unknown Rx AtorvaSTATin [Lipitor] 40 mg PO QHS #40 tablet 05/05/19 Unknown Rx Losartan [Cozaar] 25 mg PO QDAY #30 tablet 05/05/19 Unknown Rx traMADol [Ultram] 50 mg PO Q6HR PRN #7 tablet 05/18/19 Unknown Rx Ondansetron [Zofran Odt] 4 mg PO Q8HR PRN #14 tab.rapdis 05/19/19 Unknown Rx Dicyclomine [Bentyl] 10 mg PO QID #10 capsule 05/22/19 Unknown Rx Docusate Sodium [Colace] 100 mg PO BID #60 capsule 05/22/19 Unknown Rx Mineral Oil [Fleet Mineral Oil] [address] DAILY #3 bottle 05/22/19 Unknown Rx ED Physical Exam - General Limitations: No Limitations General appearance: alert, in no apparent distress - Head Head exam: Present: atraumatic, normocephalic - Eye Eye exam: Present: normal appearance, PERRL, EOMI - ENT ENT exam: Present: mucous membranes moist - Neck Neck exam: Present: normal inspection - Respiratory Respiratory exam: Present: normal lung sounds bilaterally. Absent: respiratory distress, wheezes, rales, rhonchi - Cardiovascular Cardiovascular Exam: Present: regular rate, normal rhythm, normal heart sounds. Absent: systolic murmur, diastolic murmur, rubs, gallop - GI/Abdominal GI/Abdominal exam: Present: soft, normal bowel sounds. Absent: distended, tenderness, guarding, rebound, rigid - Extremities Exam Extremities exam: Present: normal inspection - Back Exam Back exam: Present: normal inspection - Neurological Exam Neurological exam: Present: alert, oriented X3 - Psychiatric Psychiatric exam: Present: normal affect, normal mood - Skin Skin exam: Present: warm, dry, intact, normal color. Absent: rash ED Course Vital Signs 05/21/19 05/21/19 20:45 22:25 Temperature 97.6 F 97.6 F Pulse Rate 64 88 Respiratory 18 16 Rate Blood Pressure 136/78 Blood Pressure 140/90 [Left] O2 Sat by Pulse 95 99 Oximetry ED Medical Decision Making - Lab Data Result diagrams: 05/21/19 21:12 05/21/19 21:12 - Radiology Data [facility] [address] [place] [address] XRay Report Signed Patient: CATHY ULLOA MR#: [id number] : 1950 Acct:[id number] Age/Sex: 68 / F ADM Date: 05/21/19 Loc: ED Attending Dr: Ordering Physician: JOSY DIETRICH MD Date of Service: 05/21/19 Procedure(s): XR abd series w cxr 1V Accession Number(s): [id number] cc: JOSY DIETRICH MD Fluoro Time In Minutes: Complete abdominal series 3 views INDICATION / CLINICAL INFORMATION: constipation. Abdominal pain COMPARISON: None available. FINDINGS: Chest: Mild cardiomegaly. Lungs are grossly clear. BOWEL GAS PATTERN: No significant abnormality. FREE AIR / EXTRALUMINAL GAS: None seen. ADDITIONAL FINDINGS: No significant additional findings. IMPRESSION: Mild stool burden identified throughout the colon. Gaseous distention of the large bowel which could be seen with ileus. No high-grade obstruction present. Cardiomegaly. Signer Name: Greg Morales MD Signed: 05/21/2019 9:55 PM Workstation Name: [id number] Transcribed By: BC Dictated By: Greg Morales MD Electronically Authenticated By: Greg Morales MD Signed Date/Time: 05/21/192154 DD/ 53 TD/TT: - Medical Decision Making Patient's has some colonic distention however there is no obvious evidence of any obstruction. Patient does have a large stool burden present on x-ray. The patient will likely is having a lot of cramps secondary to her laxative use. Patient is not laxatives will start a stool softener the patient will use a fleets enemas or milk and molasses enema at home. Patient given a soapsuds enema to try to soften things here in the emergency department did have a small bowel movement. Critical care attestation.: If time is entered above; I have spent that time in minutes in the direct care of this critically ill patient, excluding procedure time. ED Disposition Clinical Impression: Constipation Qualifiers: Constipation type: slow transit constipation Qualified Code(s): K59.01 - Slow transit constipation Disposition: - TO HOME OR SELFCARE Is pt being admited?: No Does the pt Need Aspirin: No Condition: Stable Instructions: Constipation (ED), High Fiber Diet (ED) Prescriptions: Docusate Sodium [Colace] 100 mg PO BID #60 capsule Mineral Oil [Fleet Mineral Oil] [address] DAILY #3 bottle Referrals: ALIVIA BENTLEY MD [Primary Care Provider] - 3-5 Days Time of Disposition: 01:15
[2019-05-22] MEDS ORDERED: TORADOL IV ONE (02:00)
[2019-05-22] MEDS ORDERED: NACL 0.9% 1000 ML 1,000 ML IV ONE (02:00)
[2019-05-22 04:23] VITALS: BP 127/81
[2019-05-22] MEDS ORDERED: ZOFRAN ODT PO ONE (05:49)
== END 2019-05-22 07:35 | disposition home or self-care (01) ==
LOC: ED 20:38
DX: K59.00 Constipation, unspecified (principal); I10 Essential (primary) hypertension; I25.2 Old myocardial infarction; Z86.73 Personal history of transient ischemic attack (TIA), and cerebral infarction without residual deficits; Z98.890 Other specified postprocedural states; Z79.82 Long term (current) use of aspirin; Z79.899 Other long term (current) drug therapy
CPT/HCPCS: 36415; 74022; 80053; 85025; 96372; 96374; 99284; J0500; J1885; J7030; 96361; Q0162

== ENCOUNTER 2019-08-11 11:14 | Inpatient (IN) | payer OTHER ==
[2019-08-11] MEDS ORDERED: ASPIRIN 325 MG TAB PO ONE (11:41)
--- NOTE | 2019-08-11 12:34 | XRay Report ---
CHEST 1 VIEW 08/11/2019 12:02 PM INDICATION / CLINICAL INFORMATION: Chest Pain. COMPARISON: Acute abdominal series from 05/21/2019. FINDINGS: SUPPORT DEVICES: None. HEART / MEDIASTINUM: Stable. LUNGS / PLEURA: No significant pulmonary or pleural abnormality. No pneumothorax. ADDITIONAL FINDINGS: No significant additional findings. IMPRESSION: 1. No acute abnormality of the chest. 2. Stable cardiomegaly. Signer Name: Kam Aparicio MD Signed: 08/11/2019 12:29 PM Workstation Name: [id number]
--- NOTE | 2019-08-11 12:34 | Emergency Department Report ---
ED Chest Pain HPI - General Chief Complaint: Chest Pain Stated Complaint: PAIN IN HEART Time Seen by Provider: 08/11/19 12:32 Source: patient Mode of arrival: Ambulatory Limitations: No Limitations - History of Present Illness Initial Comments: Patient is a 68-year-old female Emergency room with complaints of left-sided chest pain. Patient states the chest pain started at 11 AM this morning. Patient states she started feeling dizzy and nauseated than the chest pain started. Patient states she has a history of AR, CABG and hypertension, and afib. Patient states her stroke was in April of this year and her heart attack was one year ago. 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 Patient states her chest pain is an 8 out of 10. pt States her pain is better with rest and worse with exertion. Patient states her dizziness improved with rest. MD Complaint: chest pain -: Sudden - Related Data Previous Rx's Medication Instructions Recorded Last Taken Type Acetaminophen [Acetaminophen TAB] 2 tab PO Q4H PRN #15 tablet 05/05/19 Unknown Rx Aspirin 325 mg PO QDAY #30 tablet 05/05/19 Unknown Rx AtorvaSTATin [Lipitor] 40 mg PO QHS #40 tablet 05/05/19 Unknown Rx Losartan [Cozaar] 25 mg PO QDAY #30 tablet 05/05/19 Unknown Rx traMADoL [Ultram] 50 mg PO Q6HR PRN #7 tablet 05/18/19 Unknown Rx Ondansetron [Zofran Odt] 4 mg PO Q8HR PRN #14 tab.rapdis 05/19/19 Unknown Rx Dicyclomine [Bentyl] 10 mg PO QID #10 capsule 05/22/19 Unknown Rx Docusate Sodium [Colace] 100 mg PO BID #60 capsule 05/22/19 Unknown Rx Mineral Oil [Fleet Mineral Oil] 133 ml [place] DAILY #3 bottle 05/22/19 Unknown Rx Allergies Allergy/AdvReac Type Severity Reaction Status Date / Time No Known Allergies Allergy Verified 05/18/19 21:37 Heart Score - HEART Score History: Highly suspicious EKG: Non-specific Age: > 65 Risk factors: > 3 risk factors or hx of atherosclerotic disease Troponin: > 3x normal limit HEART Score: 9 ED Review of Systems ROS: Stated complaint: PAIN IN HEART Other details as noted in HPI Constitutional: denies: chills, fever Eyes: denies: eye pain, eye discharge, vision change ENT: denies: ear pain, throat pain Respiratory: denies: cough, shortness of breath, wheezing Cardiovascular: chest pain. denies: palpitations Endocrine: no symptoms reported Gastrointestinal: nausea. denies: abdominal pain, diarrhea Genitourinary: denies: urgency, dysuria, discharge Musculoskeletal: denies: back pain, joint swelling, arthralgia Skin: denies: rash, lesions Neurological: as per HPI, other. denies: headache, weakness, paresthesias Psychiatric: denies: anxiety, depression Hematological/Lymphatic: denies: easy bleeding, easy bruising ED Past Medical Hx - Past Medical History Previous Medical History?: Yes Hx Hypertension: Yes Hx CVA: Yes Hx Heart Attack/AMI: Yes Additional medical history: GALL STONES. afib - Surgical History Past Surgical History?: Yes Additional Surgical History: dental sx - Family History Family history: no significant - Social History Smoking Status: Never Smoker Substance Use Type: None - Medications Home Medications: Home Medications Medication Instructions Recorded Confirmed Last Taken Type Acetaminophen [Acetaminophen TAB] 2 tab PO Q4H PRN #15 tablet 05/05/19 Unknown Rx Aspirin 325 mg PO QDAY #30 tablet 05/05/19 Unknown Rx AtorvaSTATin [Lipitor] 40 mg PO QHS #40 tablet 05/05/19 Unknown Rx Losartan [Cozaar] 25 mg PO QDAY #30 tablet 05/05/19 Unknown Rx traMADoL [Ultram] 50 mg PO Q6HR PRN #7 tablet 05/18/19 Unknown Rx Ondansetron [Zofran Odt] 4 mg PO Q8HR PRN #14 tab.rapdis 05/19/19 Unknown Rx Dicyclomine [Bentyl] 10 mg PO QID #10 capsule 05/22/19 Unknown Rx Docusate Sodium [Colace] 100 mg PO BID #60 capsule 05/22/19 Unknown Rx Mineral Oil [Fleet Mineral Oil] 133 ml [place] DAILY #3 bottle 05/22/19 Unknown Rx ED Physical Exam - General Limitations: No Limitations General appearance: alert, in no apparent distress - Head Head exam: Present: atraumatic, normocephalic - Eye Eye exam: Present: normal appearance - ENT ENT exam: Present: mucous membranes moist - Neck Neck exam: Present: normal inspection - Respiratory Respiratory exam: Present: normal lung sounds bilaterally. Absent: respiratory distress - Cardiovascular Cardiovascular Exam: Present: regular rate, normal rhythm. Absent: systolic murmur, diastolic murmur, rubs, gallop - GI/Abdominal GI/Abdominal exam: Present: soft, normal bowel sounds - Extremities Exam Extremities exam: Present: normal inspection - Back Exam Back exam: Present: normal inspection - Neurological Exam Neurological exam: Present: alert, oriented X3 - Psychiatric Psychiatric exam: Present: normal affect, normal mood - Skin Skin exam: Present: warm, dry, intact, normal color. Absent: rash ED Course Vital Signs 08/11/19 08/11/19 08/11/19 11:39 13:14 13:47 Temperature 97.9 F Pulse Rate 94 H 86 52 L Respiratory 18 20 Rate Blood Pressure 185/108 178/86 Blood Pressure 145/68 [Left] O2 Sat by Pulse 100 100 Oximetry - Reevaluation(s) Reevaluation #1: Initial evaluation done. 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 Patient will be given Lopressor. 08/11/19 12:32 Reevaluation #2: Patient is status post Lopressor and patient's heart rate is 55. Patient has converted to sinus rhythm. 08/11/19 13:20 Reevaluation #3: I discussed all results and plan of care with patient. Patient agrees plan of care and admission. Patient will be admitted to the hospitalist service. 08/11/19 13:26 - Consultations Consultation #1: Hospitalist consult at for admission. Hospitalist admit patient. Bridge orders place. Hospitalist was the patient placed on a heparin drip for an N STEMI. 08/11/19 13:26 DIVINE score - Divine Score Age > 65: (1) Yes Aspirin use within the Past 7 Days: (1) Yes 3 or more CAD Risk Factors: (1) Yes 2 or more Angina events in past 24 hrs: (0) No Known CAD with more than 50% Stenosis: (0) No Elevated Cardiac Markers: (1) Yes ST Deviation Greater than 0.5mm: (0) No DIVINE Score: 4 ED Medical Decision Making - Lab Data Result diagrams: 08/11/19 12:35 08/11/19 12:35 - EKG Data -: EKG Interpreted by Me EKG shows normal: axis, intervals, QRS complexes, ST-T waves - EKG Data Interpretation: other (afib) - Radiology Data Radiology results: report reviewed, image reviewed CHEST 1 VIEW 08/11/2019 12:02 PM INDICATION / CLINICAL INFORMATION: Chest Pain. COMPARISON: Acute abdominal series from 05/21/2019. FINDINGS: SUPPORT DEVICES: None. HEART / MEDIASTINUM: Stable. LUNGS / PLEURA: No significant pulmonary or pleural abnormality. No pneumothorax. ADDITIONAL FINDINGS: No significant additional findings. IMPRESSION: 1. No acute abnormality of the chest. 2. Stable cardiomegaly. - Medical Decision Making Patient is a 68-year-old female that presents emergency room with complaints of chest pain and dizziness and nausea. Patient's initial evaluation shows A. fib RVR. Patient has a prior history of A. fib. Patient given Lopressor and her rhythm responded well and converted to sinus bradycardia. Patient's blood pressure also elevated. Patient's labs show elevated troponin and repeat troponin was further elevated. Patient was placed on a heparin drip for an and STEMI. Patient to rest of labs unremarkable. Patient - Differential Diagnosis acs. cp. dizziness. nausea. nstemi Critical Care Time: Yes Critical care time in (mins) excluding proc time.: 35 Critical care attestation.: If time is entered above; I have spent that time in minutes in the direct care of this critically ill patient, excluding procedure time. Critical Care Time: 35 minutes ED Disposition Clinical Impression: Atrial fibrillation with RVR, Essential hypertension, NSTEMI (non-ST elevated myocardial infarction) Chest pain Qualifiers: Chest pain type: unspecified Qualified Code(s): R07.9 - Chest pain, unspecified CAD (coronary artery disease) Qualifiers: Coronary Disease-Associated Artery/Lesion type: cahto artery [place] vs. transplanted heart: cahto heart Associated angina: with unspecified angina Qualified Code(s): I25.119 - Atherosclerotic heart disease of cahto coronary artery with unspecified angina pectoris Disposition: -09 OP ADMIT IP TO THIS HOSP Is pt being admited?: Yes Does the pt Need Aspirin: No Condition: Critical Time of Disposition: 13:24
[2019-08-11] MEDS ORDERED: METOPROLOL TARTRATE 5 MG/5 ML INJ IV ONE (12:42)
[2019-08-11 12:59] LABS: Basophils % (Auto) 0.6 % (0.0-1.8); Eosinophils % (Auto) 0.7 % (0.0-4.3); Hematocrit 40.8 % (30.3-42.9); Hemoglobin 13.3 gm/dl (10.1-14.3); Lymphocytes # (Auto) 1.4 K/mm3 (1.2-5.4); Lymphocytes % (Auto) 38.2 % (13.4-35.0); Mean Corpuscular HGB Conc 33 % (30-34); Mean Corpuscular Volume 84 fl (79-97); Monocytes # (Auto) 0.2 K/mm3 (0.0-0.8); Monocytes % (Auto) 4.5 % (0.0-7.3); Platelet Count 202 K/mm3 (140-440); Red Blood Count 4.85 M/mm3 (3.65-5.03); Red Cell Distribution Width 15.4 % (13.2-15.2)
[2019-08-11 13:03] LABS: Calcium 9.8 mg/dL (8.4-10.2)
[2019-08-11] MEDS ORDERED: HEPARIN 10,000 UNITS/10 ML VIAL IV ONE (13:25)
[2019-08-11 13:28] LABS: Chol/HDL Ratio 4.8 %
[2019-08-11] MEDS ORDERED: HEPARIN/ 0.45% NACL DRIP 25,000 UNIT/500 ML BAG IV SCH (14:00)
[2019-08-11 14:13] LABS: INR 1.27 (0.87-1.13)
--- NOTE | 2019-08-11 14:37 | History and Physical Report ---
History of Present Illness Date of examination: 08/11/19 Date of admission: 08/11/19 Chief complaint: chest pain History of present illness: Patient is a 68-year-old female with history of PR, CABG and hypertension, and afib not on AC came to Emergency room with complaints of left-sided chest pain. Patient states the chest pain started at 11 AM this morning. Patient states she started feeling dizzy and nauseated than the chest pain started. Patient states her chest pain is an 8 out of 10 her pain is better with rest and worse with exertion. Patient states her dizziness has improved with rest. She had similar presentation in the past and was evaluated by MPI stress test and cardiac cath and was recommended for medical Mx. In the ER she had elevated troponin and noted to be in Atrial fin with RVR. She is started on heparin drip and being admitted for further Mx. Past History Past Medical History: acute PR Past Surgical History: No surgical history, Other (reviewed) Social history: single, lives with family. denies: smoking, alcohol abuse, prescription drug abuse Family history: CAD Review of System: Constitutional: no fever, no chills, no weight loss Ears, eyes, nose, mouth and throat: no nasal congestion, no nasal discharge, no sinus pressure, no vision change, no red eye. Neck: No neck pain or rigidity. Cardiovascular: + chest pain, no orthopnea, no palpitations, no leg swelling Respiratory: No shortness of breath, no cough, no congestion, no wheezing Gastrointestinal: no abdominal pain, no nausea, no vomiting Genitourinary : no dysuria, no hematuria Musculoskeletal: no joint swelling or muscle ache Integumentary: no rash, no pruritis Neurological: no parathesias, no numbness, no tingling Endocrine: no cold or heat intolerance, no polyuria or polydipsia Hematologic/Lymphatic: no easy bruising, no easy bleeding, no gland swelling Allergic/Immunologic: no urticaria, no angioedema. Medications and Allergies Allergies Allergy/AdvReac Type Severity Reaction Status Date / Time No Known Allergies Allergy Verified 05/18/19 21:37 Home Medications Medication Instructions Recorded Confirmed Last Taken Type Aspirin 325 mg PO QDAY #30 tablet 05/05/19 08/11/19 Unknown Rx AtorvaSTATin [Lipitor] 40 mg PO QHS #40 tablet 05/05/19 08/11/19 Unknown Rx Losartan [Cozaar] 25 mg PO QDAY #30 tablet 05/05/19 08/11/19 Unknown Rx traMADoL [Ultram] 50 mg PO Q6HR PRN #7 tablet 05/18/19 08/11/19 Unknown Rx Ondansetron [Zofran Odt] 4 mg PO Q8HR PRN #14 tab.rapdis 05/19/19 08/11/19 Unknown Rx Dicyclomine [Bentyl] 10 mg PO QID #10 capsule 05/22/19 08/11/19 Unknown Rx Docusate Sodium [Colace] 100 mg PO BID #60 capsule 05/22/19 08/11/19 Unknown Rx Active Meds: Active Medications Heparin Sodium/Sodium Chloride (Heparin/ 0.45% Nacl-25,000 Unit/500 Ml) 25,000 unit in 500 mls @ 15 mls/hr IV TITRATE RUT; Protocol Last Admin: 08/11/19 14:08 Dose: 750 units/hr, 15 mls/hr Documented by: Exam - Physical Exam Narrative exam: GENERAL: elderly mal nourished AAF lying on bed appeared to be in no discomfo rt. HEENT: Normocephalic. Atraumatic. No conjunctival congestion or icterus. Patient has moist mucous membranes. NECK: Supple. Trachea midline. CHEST/LUNGS: Clear to auscultated bilaterally, breathing nonlabored. No wheezes crackles or rhonchi. HEART/CARDIOVASCULAR: irRegular in rate and rhythm. S1 and S2 positive. ABDOMEN: Abdomen is soft, nontender. Patient has normal bowel sounds. SKIN: There is no rash. Warm and dry. NEURO: No focal motor deficit. Follows command. MUSCULOSKELETAL: No joint effusion or tenderness. EXTRIMITY: No edema, no cyanosis or clubbing. PSYCH: Cooperative. - Constitutional Vitals: Temp Pulse Resp BP Pulse Ox 97.9 F 52 L 20 145/68 100 08/11/19 11:39 08/11/19 13:47 08/11/19 13:47 08/11/19 13:47 08/11/19 13:47 Results - Labs CBC & Chem 7: 08/11/19 12:35 08/11/19 12:35 Labs: Abnormal lab results 08/11/19 08/11/19 08/11/19 Range/Units 12:35 12:35 13:36 WBC 3.6 L (4.5-11.0) K/mm3 MCH 27 L (28-32) pg RDW 15.4 H (13.2-15.2) % Lymph % (Auto) 38.2 H (13.4-35.0) % PT 15.7 H (12.2-14.9) Sec. INR 1.27 H (0.87-1.13) Carbon Dioxide 19 L (22-30) mmol/L BUN 20 H (7-17) mg/dL Glucose 112 H (65-100) mg/dL Troponin T 0.196 H* (0.00-0.029) ng/mL Cholesterol 245 H (50-199) mg/dL LDL Cholesterol Direct 189 H (50-130) mg/dL Assessment and Plan Acute chest pain elevated troponin atrial fib with rvr HTN H/o PR and CVA CHFrEf 35% Moderate PCM - will admit to CCU bed - monitor with serial CE and EKG - will place on Aspirin, statin, heparin drip - as needed SL NTG and iv morphin for pain - Monitor BP, add betablocker and ACEI if BP tolerates - Patient had an MPI stress test and coronary angiogram during last admission - recommended for medical management - We'll consult cardiology for further management - Cardiac diet now, NPO after midnight - nutrition consult Radiological data: Chest x-ray: 1. No acute abnormality of the chest. 2. Stable cardiomegaly.
[2019-08-11] MEDS ORDERED: ACETAMINOPHEN 325 MG TAB PO PRN (16:18)
[2019-08-11] MEDS: DOCUSATE SODIUM 100 MG CAP PO SCH (22:08)
[2019-08-11] MEDS: FAMOTIDINE 10 MG TAB PO SCH (22:08)
[2019-08-11] MEDS: MORPHINE 2 MG/1 ML INJ IV PRN (23:52)
[2019-08-12] MEDS ORDERED: niCARdipine 50 MG in SODIUM CHLORIDE 0.9% 250ML 230 ML IV SCH (03:00)
[2019-08-12] MEDS: MORPHINE 2 MG/1 ML INJ IV PRN (06:28)
[2019-08-12] MEDS ORDERED: ONDANSETRON 4 MG/2 ML INJ IV PRN (10:45)
[2019-08-12] MEDS: LOSARTAN 25 MG TAB PO SCH (10:50)
[2019-08-12] MEDS: ASPIRIN 325 MG TAB PO SCH (10:50)
[2019-08-12] MEDS: DOCUSATE SODIUM 100 MG CAP PO SCH ×2 (10:50→21:55)
[2019-08-12] MEDS: FAMOTIDINE 10 MG TAB PO SCH ×2 (10:50→21:55)
--- NOTE | 2019-08-12 10:57 | Consultation ---
History of Present Illness - Reason for Consult Consult date: 08/12/19 CHest pain , NSTEMI Requesting physician: DARLIN DURAN III - History of Present Illness 68 y/o female who presented to the ED with chest pain yesterday morning. Came to ed and was found to be in Afib. Given BB for rate control. Troponin positive so started on heparin drip. had some bradycardia while asleep and then awake would be tachycardic. Per cardiology, going for cath in am. Chest pain free and stable. Past History Past Medical History: hypertension, hyperlipidemia Medications and Allergies Allergies Allergy/AdvReac Type Severity Reaction Status Date / Time No Known Allergies Allergy Verified 05/18/19 21:37 Home Medications Medication Instructions Recorded Confirmed Last Taken Type Aspirin 325 mg PO QDAY #30 tablet 05/05/19 08/11/19 Unknown Rx AtorvaSTATin [Lipitor] 40 mg PO QHS #40 tablet 05/05/19 08/11/19 Unknown Rx Losartan [Cozaar] 25 mg PO QDAY #30 tablet 05/05/19 08/11/19 Unknown Rx traMADoL [Ultram] 50 mg PO Q6HR PRN #7 tablet 05/18/19 08/11/19 Unknown Rx Ondansetron [Zofran Odt] 4 mg PO Q8HR PRN #14 tab.rapdis 05/19/19 08/11/19 Unknown Rx Dicyclomine [Bentyl] 10 mg PO QID #10 capsule 05/22/19 08/11/19 Unknown Rx Docusate Sodium [Colace] 100 mg PO BID #60 capsule 05/22/19 08/11/19 Unknown Rx Active Meds: Active Medications Acetaminophen (Tylenol) 650 mg PO Q4H PRN PRN Reason: Pain, Mild (1-3) Aspirin (Aspirin) 325 mg PO QDAY [facility] Atorvastatin Calcium (Lipitor) 40 mg PO QHS [facility] Last Admin: 08/11/19 22:08 Dose: 40 mg Documented by: Docusate Sodium (Colace) 100 mg PO BID [facility] Last Admin: 08/11/19 22:08 Dose: 100 mg Documented by: Famotidine (Pepcid) 10 mg PO BID [facility] Last Admin: 08/11/19 22:08 Dose: 10 mg Documented by: Heparin Sodium/Sodium Chloride (Heparin/ 0.45% Nacl-25,000 Unit/500 Ml) 25,000 unit in 500 mls @ 15 mls/hr IV TITRATE RUT; Protocol Last Titration: 08/12/19 01:20 Dose: 650 units/hr, 13 mls/hr Documented by: Losartan Potassium (Cozaar) 25 mg PO QDAY RUT Morphine Sulfate (Morphine) 2 mg IV Q4H PRN PRN Reason: Pain, Moderate (4-6) Last Admin: 08/12/19 06:28 Dose: 2 mg Documented by: Exam - Constitutional Vitals: Temp Pulse Resp BP Pulse Ox 98.4 F 76 26 H 145/79 98 08/12/19 08:00 08/12/19 08:00 08/12/19 08:00 08/12/19 08:00 08/12/19 08:00 General appearance: Present: no acute distress, well-nourished - EENT Eyes: Present: PERRL ENT: hearing intact - Neck Neck: Present: supple - Respiratory Respiratory effort: normal Respiratory: bilateral: CTA - Cardiovascular Rhythm: regular - Extremities Extremities: no ischemia - Abdominal General gastrointestinal: Present: soft, non-tender Results - Labs CBC & Chem 7: 08/11/19 12:35 08/11/19 12:35 Labs: Abnormal lab results 08/11/19 08/11/19 08/11/19 Range/Units 12:35 12:35 13:36 WBC 3.6 L (4.5-11.0) K/mm3 MCH 27 L (28-32) pg RDW 15.4 H (13.2-15.2) % Lymph % (Auto) 38.2 H (13.4-35.0) % PT 15.7 H (12.2-14.9) Sec. INR 1.27 H (0.87-1.13) Heparin Anti-Xa Level (0.3-0.7) U.I./ml Carbon Dioxide 19 L (22-30) mmol/L BUN 20 H (7-17) mg/dL Glucose 112 H (65-100) mg/dL Troponin T 0.196 H* (0.00-0.029) ng/mL Cholesterol 245 H (50-199) mg/dL LDL Cholesterol Direct 189 H (50-130) mg/dL 08/11/19 08/11/19 08/11/19 Range/Units 14:20 15:22 18:16 WBC (4.5-11.0) K/mm3 MCH (28-32) pg RDW (13.2-15.2) % Lymph % (Auto) (13.4-35.0) % PT (12.2-14.9) Sec. INR (0.87-1.13) Heparin Anti-Xa Level 0.84 H (0.3-0.7) U.I./ml Carbon Dioxide (22-30) mmol/L BUN (7-17) mg/dL Glucose (65-100) mg/dL Troponin T 0.253 H* D 0.738 H* D (0.00-0.029) ng/mL Cholesterol (50-199) mg/dL LDL Cholesterol Direct (50-130) mg/dL 08/11/19 Range/Units 21:48 WBC (4.5-11.0) K/mm3 MCH (28-32) pg RDW (13.2-15.2) % Lymph % (Auto) (13.4-35.0) % PT (12.2-14.9) Sec. INR (0.87-1.13) Heparin Anti-Xa Level 0.95 H (0.3-0.7) U.I./ml Carbon Dioxide (22-30) mmol/L BUN (7-17) mg/dL Glucose (65-100) mg/dL Troponin T (0.00-0.029) ng/mL Cholesterol (50-199) mg/dL LDL Cholesterol Direct (50-130) mg/dL - Imaging and Cardiology Chest x-ray: image reviewed (clear) Assessment and Plan 68 y/o female with left sided chest pain, NSTEMI 1. Stable for transfer out of unit 2. CAth in am 3. Will sign off, if has PCI will be glad to follow back in unit if needed.
--- NOTE | 2019-08-12 10:58 | Consultation ---
History of Present Illness Consult date: 08/12/19 Consult reason: atrial fibrillation, chest pain, elevated troponin History of present illness: The patient has a history of paroxysmal atrial fibrillation and sinus node dysfunction. In April 2019, during a hospitalization for stroke, she was noted to have LV systolic dysfunction on echocardiogram. Coronary angiography performed at that time revealed normal coronary arteries with an ejection fraction of 35-40%. Yesterday, she woke up with an aching precordial chest pain associated with dizziness and palpitations. She claims that chest pain persisted for several minutes before resolution upon arrival to the hospital. Cardiac enzymes revealed elevated troponin levels in a pattern suggestive of NSTEMI. Past History Past Medical History: atrial fib (paroxysmal), stroke, other (SND, NICMP, [place] coronaries 05/10.) Past Surgical History: Other (Neck surgery) Social history: denies: smoking, alcohol abuse Family history: CAD Medications and Allergies Allergies Allergy/AdvReac Type Severity Reaction Status Date / Time No Known Allergies Allergy Verified 05/18/19 21:37 Home Medications Medication Instructions Recorded Confirmed Last Taken Type Aspirin 325 mg PO QDAY #30 tablet 05/05/19 08/11/19 Unknown Rx AtorvaSTATin [Lipitor] 40 mg PO QHS #40 tablet 05/05/19 08/11/19 Unknown Rx Losartan [Cozaar] 25 mg PO QDAY #30 tablet 05/05/19 08/11/19 Unknown Rx traMADoL [Ultram] 50 mg PO Q6HR PRN #7 tablet 05/18/19 08/11/19 Unknown Rx Ondansetron [Zofran Odt] 4 mg PO Q8HR PRN #14 tab.rapdis 05/19/19 08/11/19 Unknown Rx Dicyclomine [Bentyl] 10 mg PO QID #10 capsule 05/22/19 08/11/19 Unknown Rx Docusate Sodium [Colace] 100 mg PO BID #60 capsule 05/22/19 08/11/19 Unknown Rx Active Meds: Active Medications Acetaminophen (Tylenol) 650 mg PO Q4H PRN PRN Reason: Pain, Mild (1-3) Aspirin (Aspirin) 325 mg PO QDAY [facility] Last Admin: 08/12/19 10:50 Dose: 325 mg Documented by: Atorvastatin Calcium (Lipitor) 40 mg PO QHS [facility] Last Admin: 08/11/19 22:08 Dose: 40 mg Documented by: Docusate Sodium (Colace) 100 mg PO BID [facility] Last Admin: 08/12/19 10:50 Dose: 100 mg Documented by: Famotidine (Pepcid) 10 mg PO BID [facility] Last Admin: 08/12/19 10:50 Dose: 10 mg Documented by: Heparin Sodium/Sodium Chloride (Heparin/ 0.45% Nacl-25,000 Unit/500 Ml) 25,000 unit in 500 mls @ 15 mls/hr IV TITRATE [facility]; Protocol Last Titration: 08/12/19 01:20 Dose: 650 units/hr, 13 mls/hr Documented by: Losartan Potassium (Cozaar) 25 mg PO QDAY [facility] Last Admin: 08/12/19 10:50 Dose: 25 mg Documented by: Metoprolol Tartrate (Metoprolol) 25 mg PO Q6H [facility] Morphine Sulfate (Morphine) 2 mg IV Q4H PRN PRN Reason: Pain, Moderate (4-6) Last Admin: 08/12/19 06:28 Dose: 2 mg Documented by: Ondansetron HCl (Zofran) 4 mg IV Q8H PRN PRN Reason: Nausea And Vomiting Last Admin: 08/12/19 10:50 Dose: 4 mg Documented by: Review of Systems Constitutional: no fever, no chills Ears, nose, mouth and throat: no ear pain, no ear discharge, no sore throat Cardiovascular: chest pain, palpitations, lightheadedness, no shortness of breath Respiratory: no cough, no hemoptysis, no shortness of breath Gastrointestinal: no nausea, no vomiting, no diarrhea, no constipation Genitourinary Female: no dysuria Rectal: no pain, no bleeding Musculoskeletal: no neck stiffness, no neck pain, no myalgias Integumentary: no rash, no pruritis Neurological: no weakness, no parathesias, no headaches Endocrine: no cold intolerance, no heat intolerance Hematologic/Lymphatic: no easy bruising, no easy bleeding Allergic/Immunologic: no urticaria, no wheezing Physical Examination Vital Signs Last Vital Signs Temp 98.4 F 08/12/19 08:00 Pulse 92 H 08/12/19 10:50 Resp 26 H 08/12/19 08:00 BP 103/82 08/12/19 10:50 Pulse Ox 98 08/12/19 08:00 General appearance: no acute distress HEENT: Positive: EOMI, Normocephaly, Mucus Membranes Moist Neck: Positive: neck supple, trachea midline Cardiac: Positive: irregularly irregular, S1/S2 Lungs: Positive: clear to auscultation Neuro: Positive: Grossly Intact Abdomen: Positive: Soft, Active Bowel Sounds. Negative: Tender Skin: Positive: Clear. Negative: Rash Musculoskeletal: Normal Range of Motion Extremities: Present: normal. Absent: edema Results 08/11/19 12:35 08/11/19 12:35 Coagulation 08/11/19 Range/Units 13:36 PT 15.7 H (12.2-14.9) Sec. INR 1.27 H (0.87-1.13) APTT 30.0 (24.2-36.6) Sec. Lipids 08/11/19 Range/Units 12:35 Triglycerides 103 (2-149) mg/dL Cholesterol 245 H (50-199) mg/dL HDL Cholesterol 51 (40-59) mg/dL Cholesterol/HDL Ratio 4.80 % CBC 08/11/19 Range/Units 12:35 WBC 3.6 L (4.5-11.0) K/mm3 RBC 4.85 (3.65-5.03) M/mm3 Hgb 13.3 (10.1-14.3) gm/dl Hct 40.8 (30.3-42.9) % Plt Count 202 (140-440) K/mm3 Lymph # 1.4 (1.2-5.4) K/mm3 Lares # 0.2 (0.0-0.8) K/mm3 Eos # 0.0 (0.0-0.4) K/mm3 Baso # 0.0 (0.0-0.1) K/mm3 Comprehensive Metabolic Panel 08/11/19 Range/Units 12:35 Sodium 139 (137-145) mmol/L Potassium 3.9 (3.6-5.0) mmol/L Chloride 99.2 (98-107) mmol/L Carbon Dioxide 19 L (22-30) mmol/L BUN 20 H (7-17) mg/dL Creatinine 1.2 (0.7-1.2) mg/dL Glucose 112 H (65-100) mg/dL Calcium 9.8 (8.4-10.2) mg/dL - Imaging and Cardiology EKG: image reviewed EKG interpretations - Telemetry EKG Rhythm: Atrial Fibrillation - EKG Supraventricular dysrhythmia: atrial fibrillation Repolarization changes or abnormalities: ST or T wave suggestive of ischemia Assessment and Plan Her elevated cardiac enzymes is of concern in the setting of prolonged episode of chest pain. However, it is interesting that she had normal coronary anatomy in April this year. At this point, with her enzyme pattern, it will be prudent to repeat coronary angiography. Initiate low-dose beta evelio therapy with hold parameters for control of atrial fibrillation especially with her history of sinus node dysfunction. - Patient Problems (1) NSTEMI (non-ST elevated myocardial infarction) Current Visit: Yes Status: Acute (2) Chest pain Current Visit: Yes Status: Acute (3) PAF (paroxysmal atrial fibrillation) Current Visit: Yes Status: Acute (4) Sinus node dysfunction Current Visit: Yes Status: Chronic (5) NICM (nonischemic cardiomyopathy) Current Visit: Yes Status: Chronic (6) Hypertension Current Visit: Yes Status: Chronic Qualifiers: Hypertension type: essential hypertension Qualified Code(s): I10 - Essential (primary) hypertension (7) Normal coronary arteries Current Visit: Yes Status: Chronic
--- NOTE | 2019-08-12 11:16 | Progress Note ---
Assessment and Plan Assessment and plan: Acute chest pain elevated troponin atrial fib with rvr HTN H/o OK and CVA CHFrEf 35% Moderate PCM - Admitted to CCU bed - monitor with serial CE and EKG - On Aspirin, statin, heparin drip - as needed SL NTG and iv morphin for pain - Monitor BP, add betablocker and ACEI if BP tolerates - Patient had an MPI stress test and coronary angiogram during last admission - recommended for medical management - patient evaluated by Cardiology - nutrition consulted for moderate PCM, BMI only 18.5 -Patient stable to transfer to [facility] as per cardiology. History Interval history: Chest pain palpitations Hospitalist Physical - Physical exam Narrative exam: Gen: Not in acute distress, lying in bed, HEENT: Normocephalic, atraumatic Neck: supple, no JVD Heart: S1 and S2 irreg, no murmurs, rubs or gallop Lungs: Clear to auscultation bilaterally, no crackles Abd: soft, non tender, non distended, normal BS, Ext: No edema, no clubbing, no cyanosis Neuro: Awake, alert, oriented X 3, no focal neurological signs - Constitutional Vitals: Temp Pulse Resp BP Pulse Ox 98.4 F 72 19 103/82 97 08/12/19 08:00 08/12/19 11:00 08/12/19 11:00 08/12/19 11:00 08/12/19 11:00 General appearance: Present: no acute distress, cachectic Results - Labs CBC & Chem 7: 08/13/19 04:40 08/13/19 04:40 Labs: Laboratory Last Values WBC 3.6 K/mm3 (4.5-11.0) L 08/11/19 12:35 RBC 4.85 M/mm3 (3.65-5.03) 08/11/19 12:35 Hgb 13.3 gm/dl (10.1-14.3) 08/11/19 12:35 Hct 40.8 % (30.3-42.9) 08/11/19 12:35 MCV 84 fl (79-97) 08/11/19 12:35 MCH 27 pg (28-32) L 08/11/19 12:35 MCHC 33 % (30-34) 08/11/19 12:35 RDW 15.4 % (13.2-15.2) H 08/11/19 12:35 Plt Count 202 K/mm3 (140-440) 08/11/19 12:35 Lymph % (Auto) 38.2 % (13.4-35.0) H 08/11/19 12:35 [place] % (Auto) 4.5 % (0.0-7.3) 08/11/19 12:35 Eos % (Auto) 0.7 % (0.0-4.3) 08/11/19 12:35 Baso % (Auto) 0.6 % (0.0-1.8) 08/11/19 12:35 Lymph # 1.4 K/mm3 (1.2-5.4) 08/11/19 12:35 [place] # 0.2 K/mm3 (0.0-0.8) 08/11/19 12:35 Eos # 0.0 K/mm3 (0.0-0.4) 08/11/19 12:35 Baso # 0.0 K/mm3 (0.0-0.1) 08/11/19 12:35 Seg Neutrophils % 56.0 % (40.0-70.0) 08/11/19 12:35 Seg Neutrophils # 2.0 K/mm3 (1.8-7.7) 08/11/19 12:35 PT 15.7 Sec. (12.2-14.9) H 08/11/19 13:36 INR 1.27 (0.87-1.13) H 08/11/19 13:36 APTT 30.0 Sec. (24.2-36.6) 08/11/19 13:36 Heparin Anti-Xa Level 0.48 U.I./ml (0.3-0.7) 08/12/19 07:48 Sodium 139 mmol/L (137-145) 08/11/19 12:35 Potassium 3.9 mmol/L (3.6-5.0) 08/11/19 12:35 Chloride 99.2 mmol/L (98-107) 08/11/19 12:35 Carbon Dioxide 19 mmol/L (22-30) L 08/11/19 12:35 Anion Gap 25 mmol/L 08/11/19 12:35 BUN 20 mg/dL (7-17) H 08/11/19 12:35 Creatinine 1.2 mg/dL (0.7-1.2) 08/11/19 12:35 Estimated GFR 54 ml/min 08/11/19 12:35 BUN/Creatinine Ratio 17 % 08/11/19 12:35 Glucose 112 mg/dL (65-100) H 08/11/19 12:35 Calcium 9.8 mg/dL (8.4-10.2) 08/11/19 12:35 Troponin T 0.738 ng/mL (0.00-0.029) H* D 08/11/19 18:16 Triglycerides 103 mg/dL (2-149) 08/11/19 12:35 Cholesterol 245 mg/dL (50-199) H 08/11/19 12:35 LDL Cholesterol Direct 189 mg/dL (50-130) H 08/11/19 12:35 HDL Cholesterol 51 mg/dL (40-59) 08/11/19 12:35 Cholesterol/HDL Ratio 4.80 % 08/11/19 12:35 Active Medications - Current Medications Current Medications: Generic Name Dose Route Start Last Admin Trade Name Freq PRN Reason Stop Dose Admin Acetaminophen 650 mg 08/11/19 16:18 Tylenol PO Q4H PRN Pain, Mild (1-3) Aspirin 325 mg 08/12/19 10:00 08/12/19 10:50 Aspirin PO 325 mg QDAY RUT Administration Atorvastatin Calcium 40 mg 08/11/19 22:00 08/11/19 22:08 Lipitor PO 40 mg QHS RUT Administration Docusate Sodium 100 mg 08/11/19 22:00 08/12/19 10:50 Colace PO 100 mg BID RUT Administration Famotidine 10 mg 08/11/19 22:00 08/12/19 10:50 Pepcid PO 10 mg BID RUT Administration Heparin Sodium/Sodium Chloride 25,000 unit in 500 mls @ 15 mls/hr 08/11/19 14:00 08/12/19 01:20 Heparin/ 0.45% Nacl-25,000 Unit/500 Ml IV 650 units/hr TITRATE RUT 13 mls/hr Titration Protocol 750 UNITS/HR Losartan Potassium 25 mg 08/12/19 10:00 08/12/19 10:50 Cozaar PO 25 mg QDAY RUT Administration Metoprolol Tartrate 25 mg 08/12/19 11:00 Metoprolol PO Q6H RUT Morphine Sulfate 2 mg 08/11/19 17:03 08/12/19 06:28 Morphine IV 2 mg Q4H PRN Administration Pain, Moderate (4-6) Ondansetron HCl 4 mg 08/12/19 10:45 08/12/19 10:50 Zofran IV 4 mg Q8H PRN Administration Nausea And Vomiting
[2019-08-12] MEDS ORDERED: SODIUM CHLORIDE 0.9% 500 ML 500 ML IV SCH (12:00)
[2019-08-12] MEDS: METOPROLOL TARTRATE 25 MG TAB PO SCH ×2 (12:25→23:52)
--- NOTE | 2019-08-12 17:27 | Event Note ---
Date: 08/12/19 Called by Nurse that patient having bradycardia episodes, and now has a 3.3 sec pause. will transfer back to ICU or IMCU. She was just transferred to Tele from ICU today.
[2019-08-13] MEDS: METOPROLOL TARTRATE 25 MG TAB PO SCH ×2 (00:20→12:12)
[2019-08-13] MEDS: MORPHINE 2 MG/1 ML INJ IV PRN (03:19)
[2019-08-13 05:54] LABS: Hematocrit 40.3 % (30.3-42.9); Hemoglobin 12.9 gm/dl (10.1-14.3); Mean Corpuscular HGB Conc 32 % (30-34); Mean Corpuscular Volume 85 fl (79-97); Platelet Count 191 K/mm3 (140-440); Red Blood Count 4.75 M/mm3 (3.65-5.03)
[2019-08-13 05:57] LABS: INR 1.33 (0.87-1.13)
[2019-08-13 06:12] LABS: BUN/Creatinine Ratio 8; Blood Urea Nitrogen 9 mg/dL (7-17); Calcium 9.4 mg/dL (8.4-10.2); Hemolysis Index 1
[2019-08-13 06:44] LABS: Basophils % (Manual) 0 % (0.0-1.8); Total Cells Counted 100
[2019-08-13 06:45] LABS: Burr Cells Rare; Platelet Estimate Consistent w Auto
[2019-08-13] MEDS: ASPIRIN 325 MG TAB PO SCH ×2 (08:52→10:18)
[2019-08-13] MEDS ORDERED: ASPIRIN 325 MG TAB ONE (08:53)
[2019-08-13] MEDS ORDERED: SODIUM CHLORIDE 0.9% 500 ML 500 ML ONE (09:26)
[2019-08-13] MEDS ORDERED: SODIUM CHLORIDE 0.9% 500 ML 500 ML IV SCH (10:00)
[2019-08-13] MEDS: FAMOTIDINE 10 MG TAB PO SCH ×2 (10:18→21:14)
[2019-08-13] MEDS: DOCUSATE SODIUM 100 MG CAP PO SCH ×2 (10:18→21:14)
[2019-08-13] MEDS: LOSARTAN 25 MG TAB PO SCH (10:18)
[2019-08-13] MEDS ORDERED: HEPARIN/NS 5000 UNIT/500ML 1,000 ML IR ONE (10:19)
[2019-08-13] MEDS ORDERED: MIDAZOLAM 2 MG/2 ML INJ ONE (10:19)
[2019-08-13] MEDS ORDERED: HEPARIN 10,000 UNITS/10 ML VIAL ONE (10:19)
[2019-08-13] MEDS ORDERED: VERAPAMIL 5 MG/2 ML INJ ONE (10:19)
[2019-08-13] MEDS ORDERED: fentaNYL 100 MCG/2 ML INJ ONE (10:19)
[2019-08-13] MEDS ORDERED: LIDOCAINE (2%) 20 MG/1 ML VIAL 20 ML MDV INFILTRATI ONE (10:20)
[2019-08-13] MEDS ORDERED: NITROGLYCERIN SYRINGE 3 ML ONE (10:20)
--- NOTE | 2019-08-13 10:57 | Progress Note ---
Assessment and Plan Acute chest pain elevated troponin atrial fib with rvr HTN H/o PA and CVA CHFrEf 35%, chronic Moderate PCM - admitted to CCU bed - monitor with serial CE and EKG - starte on Aspirin, statin, heparin drip - as needed SL NTG and iv morphin for pain - Monitor BP, add betablocker and ACEI if BP tolerates - Patient had an MPI stress test and coronary angiogram during last admission - recommended for medical management - repeat cardiac cath today showed no acute disease - patient evaluated by Cardiology, place on [facility] today - nutrition consulted for moderate PCM, BMI only 18.5 -possible d/c tomorrow Radiological data: Chest x-ray: 1. No acute abnormality of the chest. 2. Stable cardiomegaly. Subjective Date of service: 08/13/19 Interval history: patient seen and examined had repeat angiogram todat w/o any acute findings patient denies any chest pain Objective - Exam Narrative Exam: GENERAL: elderly mal nourished AAF lying on bed appeared to be in no discomfo rt. HEENT: Normocephalic. Atraumatic. No conjunctival congestion or icterus. Patient has moist mucous membranes. NECK: Supple. Trachea midline. CHEST/LUNGS: Clear to auscultated bilaterally, breathing nonlabored. No wheezes crackles or rhonchi. HEART/CARDIOVASCULAR: irRegular in rate and rhythm. S1 and S2 positive. ABDOMEN: Abdomen is soft, nontender. Patient has normal bowel sounds. SKIN: There is no rash. Warm and dry. NEURO: No focal motor deficit. Follows command. MUSCULOSKELETAL: No joint effusion or tenderness. EXTRIMITY: No edema, no cyanosis or clubbing. PSYCH: Cooperative. - Constitutional Vitals: Vital Signs - 12hr 08/12/19 08/12/19 08/13/19 23:01 23:50 00:00 Temperature 97.6 F Pulse Rate 41 L 55 L 45 L Pulse Rate [ From Monitor] Respiratory 23 22 21 Rate Blood Pressure 102/65 102/65 100/61 O2 Sat by Pulse 98 100 98 Oximetry 08/13/19 08/13/19 08/13/19 00:12 00:20 01:00 Temperature Pulse Rate 44 L 44 L 44 L Pulse Rate [ 44 L From Monitor] Respiratory 22 14 Rate Blood Pressure 100/61 100/61 O2 Sat by Pulse 99 99 Oximetry 08/13/19 08/13/19 08/13/19 01:01 02:00 03:01 Temperature Pulse Rate 59 L 49 L 47 L Pulse Rate [ From Monitor] Respiratory 27 H 22 14 Rate Blood Pressure 107/82 101/61 121/78 O2 Sat by Pulse 97 99 100 Oximetry 08/13/19 08/13/19 08/13/19 04:00 05:00 05:01 Temperature 97.4 F L Pulse Rate 83 53 L 60 Pulse Rate [ 53 L From Monitor] Respiratory 25 H 23 18 Rate Blood Pressure 126/70 147/89 O2 Sat by Pulse 98 99 Oximetry 08/13/19 06:00 Temperature Pulse Rate 58 L Pulse Rate [ From Monitor] Respiratory 22 Rate Blood Pressure 119/80 O2 Sat by Pulse 99 Oximetry - Labs CBC & Chem 7: 08/13/19 04:40 08/13/19 04:40 Labs: Abnormal lab results 08/12/19 08/12/19 08/12/19 Range/Units 13:55 14:50 20:33 WBC (4.5-11.0) K/mm3 MCH (28-32) pg RDW (13.2-15.2) % Seg Neuts % (Manual) (40.0-70.0) % Lymphocytes % (Manual) (13.4-35.0) % Seg Neutrophils # Man (1.8-7.7) K/mm3 PT (12.2-14.9) Sec. INR (0.87-1.13) Heparin Anti-Xa Level (0.3-0.7) U.I./ml Glucose (65-100) mg/dL POC Glucose 138 H 121 H (70-105) Troponin T 0.854 H* (0.00-0.029) ng/mL 08/13/19 08/13/19 08/13/19 Range/Units 04:40 04:40 04:40 WBC 4.0 L (4.5-11.0) K/mm3 MCH 27 L (28-32) pg RDW 16.0 H (13.2-15.2) % Seg Neuts % (Manual) 24.0 L (40.0-70.0) % Lymphocytes % (Manual) 67.0 H (13.4-35.0) % Seg Neutrophils # Man 1.0 L (1.8-7.7) K/mm3 PT 16.3 H (12.2-14.9) Sec. INR 1.33 H (0.87-1.13) Heparin Anti-Xa Level (0.3-0.7) U.I./ml Glucose 106 H (65-100) mg/dL POC Glucose (70-105) Troponin T (0.00-0.029) ng/mL 08/13/19 Range/Units 09:08 WBC (4.5-11.0) K/mm3 MCH (28-32) pg RDW (13.2-15.2) % Seg Neuts % (Manual) (40.0-70.0) % Lymphocytes % (Manual) (13.4-35.0) % Seg Neutrophils # Man (1.8-7.7) K/mm3 PT (12.2-14.9) Sec. INR (0.87-1.13) Heparin Anti-Xa Level < 0.10 L (0.3-0.7) U.I./ml Glucose (65-100) mg/dL POC Glucose (70-105) Troponin T (0.00-0.029) ng/mL
--- NOTE | 2019-08-13 12:04 | Progress Note ---
Assessment and Plan S/p [facility] today which showed normal coronaries. D/c ASA, initiate Eliquis in setting of paroxysmal atrial fibrillation. Decrease lopressor dosage in setting of sinus node dysfunction and AFib with SVR noted overnight. Cont to monitor overnight on telemetry. Pt may tx out of IMCU to telemetry. The patient has been seen in conjunction with Dr. Anne who agrees with the assessment and plan of care. - Patient Problems (1) NSTEMI (non-ST elevated myocardial infarction) Current Visit: Yes Status: Acute (2) Chest pain Current Visit: Yes Status: Acute (3) PAF (paroxysmal atrial fibrillation) Current Visit: Yes Status: Acute (4) Sinus node dysfunction Current Visit: Yes Status: Chronic (5) NICM (nonischemic cardiomyopathy) Current Visit: Yes Status: Chronic (6) Hypertension Current Visit: Yes Status: Chronic Qualifiers: Hypertension type: essential hypertension Qualified Code(s): I10 - Essential (primary) hypertension (7) Normal coronary arteries Current Visit: Yes Status: Chronic Subjective Date of service: 08/13/19 Principal diagnosis: cp; nstemi Interval history: pt for [facility], no current complaints Objective Last Vital Signs Temp 97.5 F L 08/13/19 10:58 Pulse 58 L 08/13/19 06:00 Resp 22 08/13/19 06:00 BP 119/80 08/13/19 06:00 Pulse Ox 99 08/13/19 06:00 - Physical Examination General: No Apparent Distress HEENT: Positive: EOMI, Normocephaly, Mucus Membranes Moist Neck: Positive: neck supple, trachea midline Cardiac: Positive: Reg Rate and Rhythm, S1/S2 Lungs: Positive: Decreased Breath Sounds Neuro: Positive: Grossly Intact Abdomen: Positive: Soft, Active Bowel Sounds. Negative: Tender Skin: Positive: Clear. Negative: Rash Musculoskeletal: Normal Range of Motion Extremities: Present: normal. Absent: edema - Labs and Meds Coagulation 08/13/19 Range/Units 04:40 PT 16.3 H (12.2-14.9) Sec. INR 1.33 H (0.87-1.13) CBC 08/13/19 Range/Units 04:40 WBC 4.0 L (4.5-11.0) K/mm3 RBC 4.75 (3.65-5.03) M/mm3 Hgb 12.9 (10.1-14.3) gm/dl Hct 40.3 (30.3-42.9) % Plt Count 191 (140-440) K/mm3 Comprehensive Metabolic Panel 08/13/19 Range/Units 04:40 Sodium 143 (137-145) mmol/L Potassium 4.2 (3.6-5.0) mmol/L Chloride 105.3 (98-107) mmol/L Carbon Dioxide 24 (22-30) mmol/L BUN 9 (7-17) mg/dL Creatinine 1.1 (0.7-1.2) mg/dL Glucose 106 H (65-100) mg/dL Calcium 9.4 (8.4-10.2) mg/dL - Imaging and Cardiology EKG: image reviewed Repolarization changes or abnormalities: ST or T wave suggestive of ischemia
[2019-08-13] MEDS ORDERED: HEPARIN 5,000 UNIT/1 ML VIAL SUB-Q SCH (14:00)
--- NOTE | 2019-08-13 14:13 | Cardiac Catherization Report ---
LEFT HEART CATHETERIZATION ORDERING PHYSICIAN: Dr. Anne. CLINICAL INFORMATION: This is a 68-year-old patient with known history of nonischemic cardiomyopathy, presents with chest pain with abnormal troponin suggestive of non-STEMI, type 2, is here for left heart catheterization. Procedure was done, moderate sedation, started at 10:56 a.m., finished at 11:16 a.m., 20 minutes of moderate sedation. Procedure was done via the left radial artery, sterile technique, local anesthesia, 6-Georgian radial sheath inserted. LV gram done in [place] and [place] view with a JR4 shows mild LV dysfunction, EF approximately 35%. LVEDP is 60 mmHg, LV is 154. Aortic is 150/92. No gradient across the aortic valve on pullback. RCA engaged with JR4 catheter, is a large dominant vessel, patent and normal. PDA, PLV are medium caliber vessels with multiple branches are patent and normal. Left system, JL3.5 catheter, left main is large and patent, bifurcates into large LAD that is patent and normal. Diagonal 1 is a medium caliber vessel, patent, and normal. Circumflex is a large caliber vessel that is patent and normal. OM1 and OM2 are large caliber vessels, patent and normal. A 5-Georgian catheters all taken over guidewire, 6-Georgian radial sheath was discontinued. Radial dressing applied. No hematoma, no bleeding. SUMMARY: 1. Angiographically normal coronaries, left main, LAD, circumflex, OM1, OM2, RCA, PDA, PLV. 2. Moderate LV dysfunction. 3. Nonischemic cardiomyopathy and discussed this in detail with the patient and the patient's family. JOB# [id number] JERARDO/SRIDEVI
[2019-08-13] MEDS: APIXABAN 5 MG TAB PO SCH (21:14)
[2019-08-13] MEDS ORDERED: METOPROLOL TARTRATE 25 MG TAB PO SCH (22:00)
[2019-08-14] MEDS: METOPROLOL TARTRATE 25 MG TAB PO SCH (01:11)
[2019-08-14 05:45] VITALS: BP 117/79
[2019-08-14] MEDS: FAMOTIDINE 10 MG TAB PO SCH (10:05)
[2019-08-14] MEDS: LOSARTAN 25 MG TAB PO SCH (10:05)
[2019-08-14] MEDS: APIXABAN 5 MG TAB PO SCH (10:05)
[2019-08-14] MEDS: DOCUSATE SODIUM 100 MG CAP PO SCH (10:05)
--- NOTE | 2019-08-14 12:32 | Progress Note ---
Assessment and Plan She may be discharged home on oral anticoagulation and no AV blocking medications. Follow-up at our office in one week. - Patient Problems (1) NSTEMI (non-ST elevated myocardial infarction) Current Visit: Yes Status: Acute (2) PAF (paroxysmal atrial fibrillation) Current Visit: Yes Status: Acute (3) Chest pain Current Visit: Yes Status: Resolved (4) Sinus node dysfunction Current Visit: Yes Status: Chronic (5) NICM (nonischemic cardiomyopathy) Current Visit: Yes Status: Chronic (6) Hypertension Current Visit: Yes Status: Chronic Qualifiers: Hypertension type: essential hypertension Qualified Code(s): I10 - Essential (primary) hypertension (7) Normal coronary arteries Current Visit: Yes Status: Chronic Subjective Date of service: 08/14/19 Principal diagnosis: NSTEMI, CP, PAF, SND, NICMP, NL coronaries Interval history: No complaints. She remains in atrial fibrillation with a controlled ventricular rate for the most part. During sleep hours, she has intermittent brief pauses. Objective Vital Signs Temp Pulse Pulse Resp BP Pulse Ox 08/14/19 12:06 56 L 56 L 08/14/19 05:43 56 L 18 117/79 100 08/14/19 00:19 50 L 08/14/19 00:08 97.7 F 08/14/19 00:07 59 L 18 104/50 98 08/13/19 20:03 97.5 F L 08/13/19 20:01 72 18 98/57 97 08/13/19 16:00 46 L 27 H 116/69 97 08/13/19 15:00 19 126/72 98 08/13/19 14:00 47 L 15 112/68 99 08/13/19 13:00 41 L 23 120/66 96 - Physical Examination General: No Apparent Distress HEENT: Positive: EOMI, Normocephaly, Mucus Membranes Moist Neck: Positive: neck supple, trachea midline Cardiac: Positive: irregularly irregular, S1/S2 Lungs: Positive: clear to auscultation Neuro: Positive: Grossly Intact Abdomen: Positive: Soft, Active Bowel Sounds. Negative: Tender Skin: Positive: Clear. Negative: Rash Musculoskeletal: Normal Range of Motion Extremities: Present: normal. Absent: edema - Imaging and Cardiology EKG: image reviewed - Telemetry EKG Rhythm: Atrial Fibrillation Repolarization changes or abnormalities: ST or T wave suggestive of ischemia
--- NOTE | 2019-08-14 13:10 | Discharge Summary ---
Providers - Providers Date of Admission: 08/11/19 13:37 Date of discharge: 08/14/19 Attending physician: DALIA NEGRETE 08/11/19 14:38 Consult to Physician [CONS] Routine Comment: Consulting Provider: ROWAN RAMIREZ Physician Instructions: Reason For Exam: chest pain Hospitalization Condition: Fair Hospital course: Discharge diagnosis and Mx: Acute chest pain with elevated troponin - NSTEMI type 2 - likely from atrial fib - initially placed on heparin drip, asp, statin, BB - Patient had an MPI stress test and coronary angiogram during last admission - recommended for medical management - repeat cardiac cath today showed no acute disease Atrial fib with rvr - rate controlled, placed on eliquis - no BB for remy bradycardia HTN, stable H/o WA and CVA - will cont statin, eliquis CHFrEf 35%, chronic - nonischemic cardiomyopathy - outpt f/u, fluid and salt restriction Moderate PCM - nutrition consulted for moderate PCM, BMI only 18.5 Radiological data: Chest x-ray: 1. No acute abnormality of the chest. 2. Stable cardiomegaly. Disposition: DC-01 TO HOME OR SELFCARE Time spent for discharge: 34 minutes Core Measure Documentation - Palliative Care Palliative Care/ Comfort Measures: Not Applicable - Core Measures Any of the following diagnoses?: heart failure - Heart Failure Discharge Requirements KILO/ARB for LVSD if EF <40%: Yes Beta evelio at discharge: No Reason for no beta evelio on DC: Bradycardia Exam - Physical Exam Narrative exam: GENERAL: elderly mal nourished AAF lying on bed appeared to be in no discomfort. HEENT: Normocephalic. Atraumatic. No conjunctival congestion or icterus. Patient has moist mucous membranes. NECK: Supple. Trachea midline. CHEST/LUNGS: Clear to auscultated bilaterally, breathing nonlabored. No wheezes crackles or rhonchi. HEART/CARDIOVASCULAR: irRegular in rate and rhythm. S1 and S2 positive. ABDOMEN: Abdomen is soft, nontender. Patient has normal bowel sounds. SKIN: There is no rash. Warm and dry. NEURO: No focal motor deficit. Follows command. MUSCULOSKELETAL: No joint effusion or tenderness. EXTRIMITY: No edema, no cyanosis or clubbing. PSYCH: Cooperative. - Constitutional Vitals: Temp Pulse Resp BP Pulse Ox 97.7 F 56 L 18 117/79 100 08/14/19 00:08 08/14/19 12:06 08/14/19 05:43 08/14/19 05:43 08/14/19 05:43 Plan Activity: advance as tolerated Weight Bearing Status: Non-Weight Bearing Diet: low fat, low salt Follow up with: PRIMARY CARE, [Referring] - 3-5 Days ROWAN RAMIREZ MD [Staff Physician] - 7 Days DORIS LOERA MD [Staff Physician] - 7 Days Prescriptions: Apixaban [Eliquis] 5 mg PO Q12HR #60 tablet
== END 2019-08-14 17:48 | disposition home or self-care (01) | DRG 281 ==
LOC: ED 11:14 → CC1 13:37 → 4A 08-12 14:21 → IMCU 08-12 19:01 → 4A 08-13 18:02
PROVIDERS: ADMIT Internal Medicine; ATTEND Internal Medicine
PROC: 4A023N7 Measurement of Cardiac Sampling and Pressure, Left Heart, Percutaneous Approach (ICD-10-PCS; principal; 2019-08-13)
PROC: B2111ZZ Fluoroscopy of Multiple Coronary Arteries using Low Osmolar Contrast (ICD-10-PCS; 2019-08-13)
PROC: B2151ZZ Fluoroscopy of Left Heart using Low Osmolar Contrast (ICD-10-PCS; 2019-08-13)
DX: I48.0 Paroxysmal atrial fibrillation (principal); I21.A1 Myocardial infarction type 2; E44.0 Moderate protein-calorie malnutrition; Z68.1 Body mass index [BMI] 19.9 or less, adult; I50.22 Chronic systolic (congestive) heart failure; I25.119 Atherosclerotic heart disease of native coronary artery with unspecified angina pectoris; I25.2 Old myocardial infarction; Z95.1 Presence of aortocoronary bypass graft; Z86.73 Personal history of transient ischemic attack (TIA), and cerebral infarction without residual deficits; Z79.82 Long term (current) use of aspirin; Z79.899 Other long term (current) drug therapy; Z82.49 Family history of ischemic heart disease and other diseases of the circulatory system
CPT/HCPCS: 36415; 71045; 80048; 80061; 82962; 84484; 85007; 85025; 85520; 85610; 85730; 93005; 93010; 93458; 96365; G0378; A9270-GY; C1894; J1644; J2250; J2270; J2405; J3010; J7040; J7050; Q9967

== ENCOUNTER 2019-08-17 10:01 | Emergency (ER) | payer SELFPAY ==
--- NOTE | 2019-08-17 12:20 | Emergency Department Report ---
ED General Adult HPI - General Chief complaint: Medical Clearance Stated complaint: DIZZNESS DUE TO MEDICATION Time Seen by Provider: 08/17/19 11:28 Source: patient, family, RN notes reviewed, old records reviewed Mode of arrival: Ambulatory Limitations: No Limitations - History of Present Illness Initial comments: Cardiology: [facility] This is a pleasant 68-year-old female, recently admitted to this hospital for A. fib with RVR, had a cardiac catheterization which showed normal coronary arteries, on anticoagulation, eliquis, high cholesterol, ejection fraction 35%, with a nonischemic cardiomyopathy. Patient recently started on aforementioned anticoagulant, and then states that whenever she takes it, she feels like she has to sit down because she is dizzy. The dizziness is described as a sensation of needing to sit down, and close her eyes. It is not described as a sensation of headache, loss of consciousness, lightheadedness, or pain. The patient has no physical pain at this time. She's been compliant with her anticoagulation up until yesterday. Her last dose of anticoagulation was yesterday. Currently, she denies headache, neck pain, chest pain, abdominal pain, shortness of breath, urinary symptoms, hematemesis, and bright red blood per rectum. She has a urinary symptoms at this time. She states that she would like to go. Consistency: intermittent Improves with: medication, rest - Related Data Previous Rx's Medication Instructions Recorded Last Taken Type AtorvaSTATin [Lipitor] 40 mg PO QHS #40 tablet 05/05/19 Unknown Rx Losartan [Cozaar] 25 mg PO QDAY #30 tablet 05/05/19 Unknown Rx Dicyclomine [Bentyl] 10 mg PO QID #10 capsule 05/22/19 Unknown Rx Docusate Sodium [Colace CAP] 100 mg PO BID #60 capsule 05/22/19 Unknown Rx Apixaban [Eliquis] 5 mg PO Q12HR #60 tablet 08/14/19 Unknown Rx Allergies Allergy/AdvReac Type Severity Reaction Status Date / Time No Known Allergies Allergy Verified 08/17/19 10:15 ED Review of Systems ROS: Stated complaint: DIZZNESS DUE TO MEDICATION Other details as noted in HPI Constitutional: denies: fever Eyes: denies: eye discharge, vision change ENT: denies: congestion Cardiovascular: denies: chest pain, syncope Gastrointestinal: denies: abdominal pain, diarrhea, constipation, hematemesis, melena, hematochezia Genitourinary: denies: dysuria Musculoskeletal: denies: back pain Skin: denies: lesions Neurological: denies: headache, weakness, numbness, confusion, abnormal gait, vertigo Hematological/Lymphatic: denies: easy bleeding ED Past Medical Hx - Past Medical History Hx Hypertension: Yes Hx CVA: Yes Hx Heart Attack/AMI: Yes (03/22/2018) Additional medical history: GALL STONES. afib - Surgical History Additional Surgical History: dental sx - Social History Smoking Status: Never Smoker Substance Use Type: None - Medications Home Medications: Home Medications Medication Instructions Recorded Confirmed Last Taken Type AtorvaSTATin [Lipitor] 40 mg PO QHS #40 tablet 05/05/19 08/17/19 Unknown Rx Losartan [Cozaar] 25 mg PO QDAY #30 tablet 05/05/19 08/17/19 Unknown Rx Dicyclomine [Bentyl] 10 mg PO QID #10 capsule 05/22/19 08/17/19 Unknown Rx Docusate Sodium [Colace CAP] 100 mg PO BID #60 capsule 05/22/19 08/17/19 Unknown Rx Apixaban [Eliquis] 5 mg PO Q12HR #60 tablet 08/14/19 08/17/19 Unknown Rx ED Physical Exam - General Limitations: No Limitations General appearance: alert, in no apparent distress - Head Head exam: Present: atraumatic, normocephalic - Eye Eye exam: Present: normal appearance, PERRL, EOMI, other (visual acuity intact to finger counting, color perception, reading at a close distance). Absent: nystagmus - ENT ENT exam: Present: normal exam, normal orophraynx, mucous membranes moist, normal external ear exam - Neck Neck exam: Present: normal inspection, full ROM. Absent: tenderness, meningismus - Respiratory Respiratory exam: Present: normal lung sounds bilaterally. Absent: respiratory distress - Cardiovascular Cardiovascular Exam: Present: regular rate, irregular rhythm, normal heart sounds. Absent: systolic murmur, diastolic murmur, rubs, gallop - GI/Abdominal GI/Abdominal exam: Present: soft. Absent: distended, tenderness, guarding, rebound, rigid, pulsatile mass - Extremities Exam Extremities exam: Present: normal inspection, full ROM, other (2+ pulses noted in the bilateral upper, lower extremities. There is no long bone tenderness. Musculoskeletal compartments are soft. The pelvis is stable.). Absent: pedal edema, joint swelling, calf tenderness - Back Exam Back exam: Present: normal inspection, full ROM. Absent: tenderness, CVA tenderness (R), CVA tenderness (L), paraspinal tenderness, vertebral tenderness - Neurological Exam Neurological exam: Present: alert, oriented X3, normal gait, other (there is no facial droop. The tongue is midline. Extraocular movements are intact bilaterally. Patient speaking in full complete sentences. Shoulder shrug is intact bilaterally. Hearing is grossly intact bilaterally. Visual acuity intact to finger counting and color perception at a close distance. 5/5 strength 4 extremities. Sensation intact to light touch in 4 extremities.). Absent: motor sensory deficit - Psychiatric Psychiatric exam: Present: normal affect, normal mood - Skin Skin exam: Present: warm, dry, intact, normal color. Absent: rash ED Course Vital Signs 08/17/19 10:10 Temperature 97.6 F Pulse Rate 108 H Respiratory 22 Rate Blood Pressure 164/101 O2 Sat by Pulse 96 Oximetry ED Medical Decision Making - Lab Data Vital Signs 08/17/19 10:10 Temperature 97.6 F Pulse Rate 108 H Respiratory 22 Rate Blood Pressure 164/101 O2 Sat by Pulse 96 Oximetry - Medical Decision Making Differential diagnosis, including not limited to: Orthostasis, vagal event, structural cardiac disease, medication side effects Assessment and plan: 68-year-old female and permanent atrial fibrillation, tachycardia resolved at this time, heart rate in the 70s to 80s, not hypoxic, not tachypneic on systemic anticoagulation, recently had a cardiac risk stratification at this hospital. Endorses nonspecific symptoms when taking her systemic anticoagulation. Discussed need to remain compliant with systemic anticoagulation for stroke prophylaxis, and discussed need to follow-up with her outpatient wind tunnel technician to have medications further adjusted and her managed. Patient resting currently at this time, tachycardia resolved, and making multiple requests to be discharged. Left upper extremity catheterization site with no redness, pus, streaking or significant hematoma. Patient medically suitable for discharge at this point time, she does not appear to have an emergent medical condition. Critical care attestation.: If time is entered above; I have spent that time in minutes in the direct care of this critically ill patient, excluding procedure time. ED Disposition Clinical Impression: Atrial fibrillation and flutter, NICM (nonischemic cardiomyopathy), Anticoagulant effect Disposition: DC-01 TO HOME OR SELFCARE Is pt being admited?: No Does the pt Need Aspirin: No Condition: Stable Additional Instructions: Continue current outpatient medications. Recommend follow-up with your private wind tunnel technician within the next 3-5 days. Return to the emergency room right away with projectile vomiting, change in mental status, confusion, inability to tolerate liquid feeds, new, worsened or different symptoms not present on the initial emergency room evaluation. Recommend compliance with her anticoagulants, eliquis for prevention of stroke. Stroke may cause disability, paralysis, loss of quality of life and . Patient should follow-up with her wind tunnel technician to have her anticoagulate evaluated and adjusted, if necessary. Referrals: [facility], [facility]. [Provider Group] - 3-5 Days
[2019-08-17 12:32] VITALS: BP 152/83
== END 2019-08-17 12:33 | disposition home or self-care (01) ==
LOC: ED 10:01
DX: I48.91 Unspecified atrial fibrillation (principal); I48.92 Unspecified atrial flutter; I42.8 Other cardiomyopathies; I10 Essential (primary) hypertension; I25.2 Old myocardial infarction; Z86.73 Personal history of transient ischemic attack (TIA), and cerebral infarction without residual deficits; Z79.01 Long term (current) use of anticoagulants; Z79.899 Other long term (current) drug therapy

== ENCOUNTER 2019-09-06 22:15 | Emergency (ER) | payer SELFPAY ==
--- NOTE | 2019-09-07 03:29 | Emergency Department Report ---
ED General Adult HPI - General Chief complaint: Dizziness Stated complaint: CHEST PAIN Time Seen by Provider: 09/07/19 03:16 Source: patient Mode of arrival: Ambulatory Limitations: No Limitations - History of Present Illness Initial comments: 68-year-old female with a history of atrial fibrillation on Eliquis therapy who presents with complaint of dizziness. Patient complains of generalized weakness and chest pain as well. Patient had a recent cardiac catheterization on July 2019 which was negative. Patient states that this headache that she has is new in presentation from her prior ER visits. Patient states that her chest pain is right-sided in nature. Patient states she is taking no medications for her headache. Patient denies any falls. - Related Data Previous Rx's Medication Instructions Recorded Last Taken Type AtorvaSTATin [Lipitor] 40 mg PO QHS #40 tablet 05/05/19 Unknown Rx Losartan [Cozaar] 25 mg PO QDAY #30 tablet 05/05/19 Unknown Rx Dicyclomine [Bentyl] 10 mg PO QID #10 capsule 05/22/19 Unknown Rx Docusate Sodium [Colace CAP] 100 mg PO BID #60 capsule 05/22/19 Unknown Rx Apixaban [Eliquis] 5 mg PO Q12HR #60 tablet 08/14/19 Unknown Rx traMADoL [Ultram] 50 mg PO Q6HR PRN #18 tablet 09/07/19 Unknown Rx Allergies Allergy/AdvReac Type Severity Reaction Status Date / Time No Known Allergies Allergy Verified 08/17/19 10:15 ED Review of Systems ROS: Stated complaint: CHEST PAIN Other details as noted in HPI Constitutional: denies: chills, fever Eyes: denies: eye pain, eye discharge, vision change ENT: denies: ear pain, throat pain Respiratory: denies: cough, shortness of breath, wheezing Cardiovascular: chest pain Endocrine: no symptoms reported Gastrointestinal: denies: abdominal pain, nausea, diarrhea Genitourinary: denies: urgency, dysuria, discharge Musculoskeletal: denies: back pain, joint swelling, arthralgia Skin: denies: rash, lesions Neurological: weakness Psychiatric: denies: anxiety, depression Hematological/Lymphatic: denies: easy bleeding, easy bruising ED Past Medical Hx - Past Medical History Previous Medical History?: Yes Hx Hypertension: Yes (Takes Losartan) Hx CVA: Yes Hx Heart Attack/AMI: Yes (03/22/2018) Hx Headaches / Migraines: Yes Additional medical history: GALL STONES. afib - Surgical History Past Surgical History?: Yes Additional Surgical History: dental sx - Social History Smoking Status: Never Smoker Substance Use Type: None - Medications Home Medications: Home Medications Medication Instructions Recorded Confirmed Last Taken Type AtorvaSTATin [Lipitor] 40 mg PO QHS #40 tablet 05/05/19 08/17/19 Unknown Rx Losartan [Cozaar] 25 mg PO QDAY #30 tablet 05/05/19 08/17/19 Unknown Rx Dicyclomine [Bentyl] 10 mg PO QID #10 capsule 05/22/19 08/17/19 Unknown Rx Docusate Sodium [Colace CAP] 100 mg PO BID #60 capsule 05/22/19 08/17/19 Unknown Rx Apixaban [Eliquis] 5 mg PO Q12HR #60 tablet 08/14/19 08/17/19 Unknown Rx traMADoL [Ultram] 50 mg PO Q6HR PRN #18 tablet 09/07/19 Unknown Rx ED Physical Exam - General Limitations: No Limitations General appearance: alert, in no apparent distress - Head Head exam: Present: atraumatic, normocephalic - Eye Eye exam: Present: normal appearance - ENT ENT exam: Present: mucous membranes moist - Neck Neck exam: Present: normal inspection - Respiratory Respiratory exam: Present: normal lung sounds bilaterally. Absent: respiratory distress - Cardiovascular Cardiovascular Exam: Present: regular rate, normal rhythm. Absent: systolic murmur, diastolic murmur, rubs, gallop - GI/Abdominal GI/Abdominal exam: Present: soft, normal bowel sounds - Extremities Exam Extremities exam: Present: normal inspection - Back Exam Back exam: Present: normal inspection - Neurological Exam Neurological exam: Present: alert, oriented X3 - Psychiatric Psychiatric exam: Present: normal affect, normal mood - Skin Skin exam: Present: warm, dry, intact, normal color. Absent: rash ED Course Vital Signs 09/06/19 09/07/19 22:51 03:09 Temperature 99.2 F Pulse Rate 66 Respiratory 18 17 Rate Blood Pressure 182/116 O2 Sat by Pulse 100 Oximetry ED Medical Decision Making - Lab Data Result diagrams: 09/07/19 Unknown - EKG Data EKG shows normal: sinus rhythm Rate: normal - EKG Data Interpretation: unchanged when compared t, LVH, other (no evidence of ST or T- wave changes) - Medical Decision Making Patient has had negative cardiac catheterization last month and has negative troponin here in the emergency department. Patient's CT of the head shows no acute pathology. Patient to be discharged to follow up with community service organization director as an outpatient. - Differential Diagnosis STEMI; NSTEMI; Electrolylte Abnormality: anemia Critical care attestation.: If time is entered above; I have spent that time in minutes in the direct care of this critically ill patient, excluding procedure time. ED Disposition Clinical Impression: Dizziness Disposition: DC-01 TO HOME OR SELFCARE Is pt being admited?: No Condition: Stable Instructions: Dizziness (ED) Prescriptions: traMADoL [Ultram] 50 mg PO Q6HR PRN #18 tablet PRN Reason: Pain Time of Disposition: 06:03 Print Language: THAI
--- NOTE | 2019-09-07 04:39 | Cat Scan Report ---
Head CT without intravenous contrast INDICATION: Headache and dizziness COMPARISON: 04/29/2019 FINDINGS: The ventricles are normal in size and position. No hemorrhage or extra-axial fluid collecti on. No edema or mass effect. No focal infarct seen. Portions of the sinuses visualized are clear. No skull fracture identified. Few small white matter ischemic changes of the left cerebral hemisphere ol d and unchanged. No acute abnormality. IMPRESSION: Negative head CT Automated exposure control was utilized to diminish radiation dose Signer Name: Umberto Dahl MD Signed: 09/07/2019 4:34 AM Workstation Name: [id number]
[2019-09-07 05:29] LABS: Alanine Aminotransferase 9 units/L (7-56); Albumin 4.4 g/dL (3.9-5); BUN/Creatinine Ratio 10; Blood Urea Nitrogen 11 mg/dL (7-17)
[2019-09-07 05:30] LABS: Hemolysis Index 8
[2019-09-07 06:18] VITALS: BP 157/92
[2019-09-07 06:25] LABS: Hematocrit 38.8 % (30.3-42.9); Hemoglobin 12.3 gm/dl (10.1-14.3); Mean Corpuscular Volume 86 fl (79-97)
[2019-09-07 06:26] LABS: Mean Corpuscular HGB Conc 32 % (30-34); Platelet Count 220 K/mm3 (140-440); Red Cell Distribution Width 15.5 % (13.2-15.2)
--- NOTE | 2019-09-10 13:03 | XRay Report ---
CHEST 1 VIEW INDICATION / CLINICAL INFORMATION: Chest pain and weakness. COMPARISON: 08/11/2019 FINDINGS: SUPPORT DEVICES: None. HEART / MEDIASTINUM: Moderately enlarged. LUNGS / PLEURA: No significant pulmonary or pleural abnormality. No pneumothorax. ADDITIONAL FINDINGS: No significant additional findings. IMPRESSION: 1. No significant change Signer Name: Umberto Dahl MD Signed: 09/07/2019 4:22 AM Workstation Name: [id number]
== END 2019-09-07 06:42 | disposition home or self-care (01) ==
LOC: ED 22:15
DX: R42 Dizziness and giddiness (principal); R07.89 Other chest pain; R53.1 Weakness; I10 Essential (primary) hypertension; I25.2 Old myocardial infarction; Z86.73 Personal history of transient ischemic attack (TIA), and cerebral infarction without residual deficits; Z98.890 Other specified postprocedural states
CPT/HCPCS: 36415; 70450; 71045; 80053; 82550; 83735; 84484; 85027; 93005; 93010